=== PATIENT | male | born 1960 | race Caucasian/White ===

== ENCOUNTER → 2019-02-25 14:23 | Outpatient (BNVA) | payer MEDICARE, SELFPAY | PROVIDERS: PCP General Practice; Referring Provider Nurse Practitioner Family; Visit Provider Physical Therapy Assistant | DX: Z12.11 Encounter for screening for malignant neoplasm of colon (principal); I10 Essential (primary) hypertension; Z80.0 Family history of malignant neoplasm of digestive organs ==

== ENCOUNTER 2019-03-04 15:21 | Outpatient (REF) | payer MEDICARE, SELFPAY ==
[2019-03-04 21:18] LABS: ALT 33 U/L (12-78); AST 26 U/L (15-37); Anion Gap 8.7 mmol/L (3-11); BUN 21 mg/dL (7-18); CO2 29.3 mmol/L (21.0-32.0); CREATININE 1.57 mg/dL (0.70-1.30); Calcium 9.7 mg/dL (8.5-10.1); Chloride 105 mmol/L (98-107); Cholesterol 137 mg/dL (50-200); Glucose 88 mg/dL (70-100); HDL Cholesterol 25 mg/dL (40-60); LDL CHOLESTEROL 66 mg/dL (<100); Potassium 4.2 mmol/L (3.5-5.1); Sodium 143 mmol/L (136-145); Triglyceride 461 mg/dL (30-150)
[2019-03-06 10:24] LABS: Hepatitis C Ab w Rflx HCV PCR Negative (NEGAT)
== END 2019-03-04 15:41 ==
LOC: NCHCN 15:21
PROVIDERS: PCP Nurse Practitioner Family; Visit Provider Nurse Practitioner Family
DX: E78.5 Hyperlipidemia, unspecified (principal); I10 Essential (primary) hypertension; E66.9 Obesity, unspecified; F70 Mild intellectual disabilities; Z11.59 Encounter for screening for other viral diseases
CPT/HCPCS: 80048; 80061; 83721; 86803; 84450; 84460

== ENCOUNTER 2019-03-11 07:15 | Day surgery (SDC) | payer MEDICARE, SELFPAY ==
--- NOTE | 2019-03-11 06:18 | W.COLOREPORT ---
Date of service: 03/11/19 Time of Service: 08:38 Colonoscopy Report Date of procedure: 03/11/19 Pre-op diagnosis general: Colon Cancer Screening/ Family History of colon Cancer Post-op diagnosis procedure note: other (Colorectal polyps and Family history) Procedure: Colonoscopy with polypectomy by cold forceps Surgeon: Manju King Anesthesia proc note operative: other (General/ ASA 2/Quyen Estrella, SE) Estimated blood loss (mL): 5 Pathology: other (Ascending, Descending, sigmoid and rectal polyps) Complications: None Disposition: same day Indications: Mr. Chin is a pleasant 58-year-old gentleman who was seen in the office for a colon cancer screening. His last colonoscopy was in 2008 and was normal. He has a family history of colon cancer in his mother and his older brother. Risks, benefits and complications have been reviewed. Complications include but are not limited to bleeding, pain, perforation, missed small lesion/polyp, sore throat, aspiration and adverse reaction to the medications. Questions were entertained and answered to their satisfaction and they wished to proceed. No guarantees were given or implied. Prep: Miralax/Dulcolax Procedure Start Time: :38 Procedure End Time: 09:18 Retraction Time: 33 minutes Findings: 5 sessile polyps Procedure Description: After informed consent was obtained the patient was taken to the procedure room and placed in a left decubitous position. Monitors were applied and a time out was done. The patients name, date of , procedure, allergies to medications and metal in their body was reviewed. The patient was then sedated. Once sedated and comfortable a rectal exam was done. External exam was normal. Internal exam revealed a normal sphincter tone and no palpable masses. The prostate felt smooth. The scope was then introduced and retro-flexed. No internal hemorrhoids were identified. The scope was then advanced to the cecum without difficulty. The TI and appendiceal orifice were identified. The prep was adequate. The scope was then slowly retracted over 33 minutes back into the rectum. Polyps were removed with cold forceps in the ascending colon X1, descending colon X1, sigmoid colon x1 and rectum x2. The scope was removed and the patient was woken up and taken back to Same day surgery in stable condition. The patient tolerated the procedure well and there were no immediate complications. Follow up: The patient should follow up in 3-5 years unless they develop changes in bowel habits or other new gastrointestinal complaints.
--- NOTE | 2019-03-11 06:20 | W.PM.DSUDISC ---
Discharge Plan Disposition Patient Disposition: HOME Condition: Good Discharge Details Reason For Visit: Colon Cancer Screening Attending Provider: Manju King Primary Care Provider: Anahi Stubbs Home Meds and New Rx's Prescriptions: Continued atenolol 25 mg tablet 75 mg PO DAILY RF: 0 amlodipine 10 mg tablet 5 mg PO DAILY RF: 0 naproxen sodium [Aleve] 220 mg tablet 220 mg PO ONCE PRNRF: 0 losartan 100 mg tablet 100 mg PO DAILY RF: 0 Bioflex 463-86-30-40 mg Tablet 2 tab PO DAILY RF: 0 acetaminophen [Tylenol] 325 mg Capsule 350 mg PO PRN PRNRF: 0 Discontinued polyethylene glycol 3350 17 gram/dose powder 238 g PO ONCE Qty: 238 RF: 0 bisacodyl [Dulcolax (bisacodyl)] 5 mg tablet,delayed release (DR/EC) 5 mg PO ONCE Qty: 4 RF: 0 Discharge Instructions Instructions: Colonoscopy (DC), Colorectal Polyps (DC) Additional Instructions: Findings: 5 polyps Follow up: 3-5 years Please call if you develop: fevers >101.5 Nausea or Vomiting Abdominal pain that is not transient DAY SURGERY UNIT POST COLONOSCOPY INSTRUCTIONS 1. Because there will be medication in your system for the next 24 hours, you may feel a little sleepy. Your coordination will be affected. Therefore: a. Do not drive or operate dangerous equipment for 24 hours. b. Do not drink alcohol beverages for 24 hours (not even beer). c. Plan to go home and rest for the day. 2. Generally there are no restrictions on your activity after a day or so has gone by, but you may feel a bit fatigued for a few days. 3 After you arrive home you may have a light meal and return to a normal diet as you can tolerate it without feeling sick to your stomach. 4. After surgery, you may feel pain or discomfort. This should be only transient, but if it persists please contact your doctor. 5. If there are any questions regarding the findings of your procedure, please feel free to contact your doctor. 6. If you are unable to contact your doctor with a problem, contact the hospital at [phone]. 7. Continue all your regular medications unless directed otherwise. I understand the above instructions and have no questions. Signature of Patient or Responsible Adult Escort Date/Time Name of Responsible Adult Escort Signature of Nurse Date/Time Activity:: Activity as Tolerated Diet:: As Tolerated Discharge Orders Discharge Orders: Discharge Order (Routine); Ordered 03/11/19 Ordered By: Manju King DS: Diagnosis Discharge Diagnosis (1) S/P colonoscopy: Status: Acute (2) Colorectal polyps: Status: Acute (3) Family history of colon cancer: Status: Chronic
[2019-03-11 07:36] VITALS: BP 170/98; PULSE 70; RESP 18; TEMP 36; O2SAT 98
[2019-03-11] MEDS: Lactated Ringers 1,000 ML 80 ML IV (07:45)
--- NOTE | 2019-03-11 08:53 | BOWEL_PTH ---
PATIENT: Mamadou Chin LOC: [facility] U#:[id number] AGE/SX: 58/M ROOM: RE03/11/[address]: Manju King MD : 1960 BED: DIS: 03/11/2019 SPEC #: [id number] RECD: 03/11/19 12:38 STATUS: KATJA RE #: [id number] CLARISSA: 03/11/19 08:[address]: Manju King DEPT: Surgical Specimen RECD BY: Lore Hernandez ENTERED: 03/11/19 12:40 SP TYPE: Bowel OTHR DR: Anahi Stubbs Tissues: 1 - BIOPSY BOWEL 2 - BIOPSY BOWEL 3 - BIOPSY BOWEL 4 - BIOPSY BOWEL Procedures: GROSS AND MICRO LEVEL 4 Comments: [id number]
== END 2019-03-11 10:28 | disposition home or self-care (01) ==
PROVIDERS: PCP Nurse Practitioner Family; Visit Provider Surgery
PROC: 0DJD8ZZ Inspection of Lower Intestinal Tract, Via Natural or Artificial Opening Endoscopic (ICD-10-PCS; CPT 45378; principal; 2019-03-11 08:15)
DX: Z12.11 Encounter for screening for malignant neoplasm of colon (principal); D12.2 Benign neoplasm of ascending colon; K63.5 Polyp of colon; K62.1 Rectal polyp; Z80.0 Family history of malignant neoplasm of digestive organs; I10 Essential (primary) hypertension
CPT/HCPCS: 45380; 88305

== ENCOUNTER 2019-09-03 10:00 | Outpatient (REF) | payer MEDICARE, SELFPAY ==
[2019-09-03 13:06] LABS: Anion Gap 10.2 mmol/L (3-11); BUN 14 mg/dL (7-18); CO2 25.8 mmol/L (21.0-32.0); CREATININE 1.29 mg/dL (0.70-1.30); Calcium 9.1 mg/dL (8.5-10.1); Chloride 109 mmol/L (98-107); Estimated GFR 57.21 (mL/min/1.73m2); Glucose 111 mg/dL (70-100); Potassium 3.6 mmol/L (3.5-5.1); Sodium 145 mmol/L (136-145)
[2019-09-03 13:19] LABS: Hemoglobin A1C 5.2 % (4.5-6.2)
== END 2019-09-03 10:20 ==
LOC: NCHCN 10:00
PROVIDERS: PCP Nurse Practitioner Family; Visit Provider Nurse Practitioner Family
DX: R73.09 Other abnormal glucose (principal); I10 Essential (primary) hypertension; E78.5 Hyperlipidemia, unspecified; N28.9 Disorder of kidney and ureter, unspecified; I86.8 Varicose veins of other specified sites; F70 Mild intellectual disabilities; E66.9 Obesity, unspecified
CPT/HCPCS: 80048; 83036

== ENCOUNTER 2019-11-01 15:55 | Outpatient (REF) | payer MEDICARE, SELFPAY ==
[2019-11-01 20:32] LABS: Abs Immature Grans 0.01 k/cumm (0.0-0.09); Absolute Basophil Count 0.09 k/cumm (0.0-0.2); Absolute Eosinophil Count 1.16 k/cumm (0.0-0.7); Absolute Lymphocyte Count 1.95 k/cumm (1.2-3.4); Absolute Monocyte Count 0.59 k/cumm (0.11-0.7); Absolute Neutrophil Count 5.73 k/cumm (1.2-6.7); Basophils % 0.9; Eosinophils % 12.2; HCT 43.5 % (40.0-50.0); Immature Grans % 0.1; Lymphocytes % 20.5; Mean Corp. HGB Concentration 34.5 g/dL (32.0-36.0); Mean Corpuscular Hemoglobin 30.5 pg (27.0-33.0); Mean Corpuscular Volume 88.6 fL (80-95); Mean Platelet Volume 11.3 fL (8.0-11.0); Monocytes % 6.2; Neutrophils % 60.1; Platelet Count 268 x1000/uL (130-400); RBC 4.91 m/cumm (4.50-6.00); RBC Distribution Width 13.8 % (11.8-14.1); White Blood Cell Count 9.53 k/cumm (4.4-10.8)
[2019-11-01 20:52] LABS: Diff Comment Agrees w/ Instrument; RBC Morphology Normal
[2019-11-01 20:55] LABS: ALT 25 U/L (16-63); AST 16 U/L (15-37); Albumin 3.9 g/dL (3.4-5.0); Alkaline Phosphatase 90 U/L (46-116); Anion Gap 9.7 mmol/L (3-11); BUN 21 mg/dL (7-18); Bilirubin, Total 0.4 mg/dL (0.2-1.0); CO2 25.3 mmol/L (21.0-32.0); CREATININE 1.57 mg/dL (0.70-1.30); Calcium 9.1 mg/dL (8.5-10.1); Chloride 108 mmol/L (98-107); Estimated GFR 45.45 (mL/min/1.73m2); Glucose 93 mg/dL (74-106); Potassium 3.9 mmol/L (3.5-5.1); Sodium 143 mmol/L (136-145); TSH (W/Ref FT4) 2.09 uIU/mL (0.36-3.74); Total Protein 6.9 g/dL (6.4-8.2)
== END 2019-11-01 16:15 ==
LOC: NCHCN 15:55
PROVIDERS: PCP Nurse Practitioner Family; Visit Provider Nurse Practitioner Family
DX: R19.7 Diarrhea, unspecified (principal)
CPT/HCPCS: 80053; 84443; 85025

== ENCOUNTER 2020-03-24 10:05 | Outpatient (REF) | payer OTHER, SELFPAY ==
[2020-03-24 20:15] LABS: Anion Gap 6.5 mmol/L (3-11); BUN 22 mg/dL (7-18); CO2 28.5 mmol/L (21.0-32.0); CREATININE 1.26 mg/dL (0.70-1.30); Calcium 9.9 mg/dL (8.5-10.1); Chloride 104 mmol/L (98-107); Estimated GFR 58.58 (mL/min/1.73m2); Glucose 92 mg/dL (74-106); Potassium 3.6 mmol/L (3.5-5.1); Sodium 139 mmol/L (136-145)
== END 2020-03-24 10:25 ==
LOC: NCHCN 10:05
PROVIDERS: PCP Nurse Practitioner Family; Visit Provider Nurse Practitioner Family
DX: I10 Essential (primary) hypertension (principal); E78.5 Hyperlipidemia, unspecified; N28.9 Disorder of kidney and ureter, unspecified; E66.9 Obesity, unspecified
CPT/HCPCS: 80048

== ENCOUNTER 2020-05-07 12:18 | Outpatient (REF) | payer OTHER, SELFPAY ==
[2020-05-07 20:52] LABS: Calculated LDL 66 mg/dL (<100); Cholesterol 129 mg/dL (<200); HDL Cholesterol 31 mg/dL (40-60); Triglyceride 162 mg/dL (<150)
== END 2020-05-07 12:38 ==
LOC: NCHCN 12:18
PROVIDERS: PCP Nurse Practitioner Family; Visit Provider Nurse Practitioner Family
DX: E78.5 Hyperlipidemia, unspecified (principal); I10 Essential (primary) hypertension
CPT/HCPCS: 80061

== ENCOUNTER 2021-02-03 12:36 | Outpatient (REF) | payer OTHER, SELFPAY ==
[2021-02-04 16:27] LABS: COVID-19 RT-PCR UVMMC Result Negative (Negative)
== END 2021-02-03 12:37 | disposition home or self-care (01) ==
LOC: NCHCN 12:36
PROVIDERS: PCP Nurse Practitioner Family; Visit Provider Nurse Practitioner Family
DX: Z20.822 Contact with and (suspected) exposure to COVID-19 (principal)
CPT/HCPCS: U0003

== ENCOUNTER 2021-03-08 21:21 | Outpatient (REF) | payer OTHER, SELFPAY ==
[2021-03-08 22:14] LABS: ESR 6 mm//hr (0-20)
[2021-03-08 22:33] LABS: ALT 37 U/L (16-63); AST 29 U/L (15-37); Alkaline Phosphatase 89 U/L (46-116); Anion Gap 9.6 mmol/L (3-11); Bilirubin, Total 0.5 mg/dL (0.2-1.0); CO2 27.4 mmol/L (21.0-32.0); CREATININE 1.5 mg/dL (0.70-1.30); Calcium 9.4 mg/dL (8.5-10.1); Calculated LDL 29 mg/dL (<100); Chloride 109 mmol/L (98-107); Cholesterol 114 mg/dL (<200); Estimated GFR 47.74 (mL/min/1.73m2); Glucose 119 mg/dL (74-106); HDL Cholesterol 24 mg/dL (40-60); Potassium 4.1 mmol/L (3.5-5.1); Sodium 146 mmol/L (136-145); TSH (W/Ref FT4) 1.54 uIU/mL (0.36-3.74); Total Protein 7.1 g/dL (6.4-8.2); Triglyceride 309 mg/dL (<150)
[2021-03-08 22:47] LABS: BUN 25 mg/dL (7-18)
[2021-03-08 22:59] LABS: Creatine Kinase 456 U/L (39-308)
[2021-03-10 15:29] LABS: ANA Interpretation Negative (Negative)
== END 2021-03-08 21:22 | disposition home or self-care (01) ==
LOC: NCHCN 21:21
PROVIDERS: PCP Nurse Practitioner Family; Visit Provider Nurse Practitioner Family
DX: I10 Essential (primary) hypertension (principal); E78.5 Hyperlipidemia, unspecified; N28.9 Disorder of kidney and ureter, unspecified; M79.18 Myalgia, other site; E66.9 Obesity, unspecified
CPT/HCPCS: 80053; 80061; 82550; 85652; 84443; 86038; 86140

== ENCOUNTER 2021-08-27 09:51 | Outpatient (CLI) | payer MEDICARE, SELFPAY ==
--- NOTE | 2021-08-27 09:30 | DI.RAD_ITS ---
Exam(s) XR ANKLE LT COMPLETE EXAM: XR ANKLE LT COMPLETE CLINICAL HISTORY: pain TECHNIQUE: 2D digital imaging was performed of the left ankle. Three images were obtained. AP, lat eral and oblique views were obtained. COMPARISON: CR LEFT ANKLE COMPLETE from 09/03/2015 CR LEFT ANKLE COMPLETE from 09/03/2015 FINDINGS: BONES: No acute fracture is present. No bony destructive lesion is seen. There are tiny well corticat ed osseous densities again seen inferior to the medial malleolus which are stable. There is a large plantar calcaneal spur. There is an enthesophyte at the Achilles insertion site. JOINTS:The ankle mortise is normally aligned. There are degenerative changes of the ankle with spurri ng seen anteriorly. There are degenerative changes also seen in the foot at the talonavicular joint and the tarsometatarsal joints. SOFT TISSUE: Normal. IMPRESSION: Degenerative changes of the left ankle and foot as described. DATA REPOSITORY: RADIATION DOSE DELIVERED:
--- NOTE | 2021-08-27 09:45 | DI.RAD_ITS ---
Exam(s) XR KNEE LT 4V AP,LAT,MARVIN,PAT EXAM: XR KNEE LT 4V AP,LAT,MARVIN,PAT CLINICAL HISTORY: pain. TECHNIQUE: 2D digital imaging was performed of the left knee. Three images were obtained. AP, late ral and PA tunnel views were obtained. COMPARISON: CR LEFT KNEE 3 VIEW COMPLETE from 09/03/2015 FINDINGS: BONES: No acute fracture is present. No bony destructive lesion is seen. There is an enthesophyte at the superior aspect of the patella. JOINTS: The knee is normally aligned. No joint effusion is seen. There has been a progression of the degenerative changes which are now moderately severe. There is joint space narrowing and periarticul ar spurring involving all 3 joint compartments. The findings are most marked in the medial femoral t ibial and patellofemoral joints. SOFT TISSUE: Normal. IMPRESSION: Moderately severe degenerative changes of the knee. Findings have progressed since the prior examina tion from 2014. DATA REPOSITORY: RADIATION DOSE DELIVERED:
--- NOTE | 2021-08-27 09:45 | DI.RAD_ITS ---
Exam(s) XR KNEE RT 3V AP,LAT,MARVIN EXAM: XR KNEE RT 3V AP,LAT,MARVIN CLINICAL HISTORY: eval R knee pain. TECHNIQUE: 2D digital imaging was performed of the right knee. Three views obtained. AP, lateral an d PA tunnel views were obtained. COMPARISON: No previous for comparison. FINDINGS: There are marked degenerative changes involving all 3 joint compartments. There is joint space narro wing and periarticular spurring present. The findings are most marked at the medial femoral tibial a nd patellofemoral joint. There is no acute fracture or dislocation. There is a small joint effusion . There is an enthesophyte at the superior patella. There is a 2.3 cm density in the anterior knee which may be a loose body. The bones are normally mineralized. IMPRESSION: Marked degenerative changes of the right knee. DATA REPOSITORY: RADIATION DOSE DELIVERED:
== END 2021-08-27 09:52 | disposition home or self-care (01) ==
LOC: DIORS 09:51
PROVIDERS: PCP Nurse Practitioner Family; Referring Provider Nurse Practitioner Family; Visit Provider Student in an Organized Health Care Education/Training Program
DX: M25.572 Pain in left ankle and joints of left foot; M17.11 Unilateral primary osteoarthritis, right knee; M17.12 Unilateral primary osteoarthritis, left knee; M25.562 Pain in left knee; M25.561 Pain in right knee; M19.072 Primary osteoarthritis, left ankle and foot; M25.872 Other specified joint disorders, left ankle and foot
CPT/HCPCS: 20610; 73562; 99213; 73610; J1040

== ENCOUNTER 2021-09-09 01:53 | Outpatient (CLI) | payer MEDICARE, SELFPAY ==
--- NOTE | 2021-09-09 08:30 | DI.CT_ITS ---
Exam(s) CT LOWER EXTREMITY LT WO EXAM: CT LOWER EXTREMITY LT WO CLINICAL HISTORY: LEFT ANKLE PAIN,M25.579. TECHNIQUE: Imaging Protocol: Axial computed tomography images with coronal and sagittal reformatted images were created and reviewed. CONTRAST MATERIAL: None COMPARISON: CR XR ANKLE LT COMPLETE from 08/27/2021 CR XR ANKLE LT COMPLETE from 08/27/2021 FINDINGS: Osseous: There is no evidence of acute fracture.. No widening of the ankle mortise. There is a small 3 x 3 m illimeter degenerative subarticular cyst in the medial aspect of the talar dome. Also some degenerat maria elena change in the medial aspect of the talus at the deltoid ligament insertion site as well as a 2 mi llimeter osteophytic density in this region subjacent to the medial malleolus which is probably an ac cessory ossicle. Also 2 smaller adjacent 1 and 1.5 millimeter calcifications seen approximately 1 cm below this level and possibly related to the medial tendons. Bony excrescence is seen off the later al malleolus outer aspect. No independent bone densities at this level. Few benign bone islands are noted in the anterior and posterior aspects of the tibial plafond. There are degenerative changes in the ankle joint and bony excrescence off the anterior medial aspect of the tibial plateau formed. Correlation any clinical signs of impingement syndrome at this level recommended. Talus: There are 3 small contiguous degenerative subarticular cyst in the medial talar dome, the larg est of these measuring 3 x 2 millimeters. No evidence of osteochondral defect. Calcaneus: No fracture. There is a large inferior calcaneal spur. No calcifications seen in the lemuel ntar fascia. A posterior in these 0 lynette noted at the Achilles insertion. No prominent abnormality in the pre Achilles fat nor obvious fluid collection within the retrocalcaneal bursa. Subtalar joint: Mild degenerative changes. No degenerative subarticular cysts. Sinus tarsi: Normal fat. No mass to suggest the presence of a sinus tarsi ganglion cyst. Sustentacular talus: Appears unremarkable. Talonavicular joint: Mild degenerative changes Calcaneocuboid joint: Unremarkable There bony excrescence is seen off the dorsal aspects of the medial and middle cuneiform XXXX. There are no prominent degenerative changes between these joints nor at the articulation of the cuneiform XXXX with the metatarsal bases nor at the articulations between the 4th and 5th metatarsals and the c uboid. There is some degenerative change at the articulation between the medial cuneiform and the pa rtially visualized base of the great toe metatarsal. There is no evidence of osseous tarsal coalition. SOFT TISSUES: No abnormal fluid collections. No tenosynovitis. IMPRESSION: Findings as described individually above. No fractures. Some degenerative change. No evidence to s uggest neuropathic findings. RADIATION DOSE DELIVERED: 248.63mGy.cm Total DLP DATA REPOSITORY: All CT scans at this facility are submitted to the National Radiology Data Registry (NRDR) Dose Index Registry (DIR) with the [employer] ([employer]). RADIATION OPTIMIZATION: All CT scans at this facility use at least one of these dose optimization te chniques: automated exposure control; mA and/or kV adjustment per patient size (includes targeted exa ms where dose is matched to clinical indication); or iterative reconstruction.
== END 2021-09-09 02:13 ==
PROVIDERS: PCP Nurse Practitioner Family; Visit Provider Student in an Organized Health Care Education/Training Program
DX: M25.572 Pain in left ankle and joints of left foot (principal); M77.32 Calcaneal spur, left foot; M19.072 Primary osteoarthritis, left ankle and foot
CPT/HCPCS: 73700

== ENCOUNTER 2021-09-23 13:19 | Outpatient (REF) | payer MEDICARE, SELFPAY ==
[2021-09-23 17:20] LABS: ALT 47 U/L (16-63); AST 26 U/L (15-37); Albumin 4.4 g/dL (3.4-5.0); Alkaline Phosphatase 73 U/L (46-116); Anion Gap 11.2 mmol/L (3-11); BUN 20 mg/dL (7-18); Bilirubin, Total 0.8 mg/dL (0.2-1.0); CO2 25.8 mmol/L (21.0-32.0); CREATININE 1.2 mg/dL (0.70-1.30); Chloride 107 mmol/L (98-107); Creatine Kinase 163 U/L (39-308); Glucose 87 mg/dL (74-106); Potassium 4.3 mmol/L (3.5-5.1); Sodium 144 mmol/L (136-145); Total Protein 7.5 g/dL (6.4-8.2)
== END 2021-09-23 13:20 | disposition home or self-care (01) ==
LOC: NCHCN 13:19
PROVIDERS: PCP Nurse Practitioner Family; Visit Provider Nurse Practitioner Family
DX: R74.8 Abnormal levels of other serum enzymes (principal); I10 Essential (primary) hypertension; N28.9 Disorder of kidney and ureter, unspecified; E66.9 Obesity, unspecified; R25.1 Tremor, unspecified
CPT/HCPCS: 80053; 82550

== ENCOUNTER → 2021-09-27 12:46 | Outpatient (BNVA) | payer MEDICARE, SELFPAY | PROVIDERS: PCP Nurse Practitioner Family; Referring Provider Nurse Practitioner Family; Visit Provider Psychiatry & Neurology Neurology | DX: G62.9 Polyneuropathy, unspecified (principal); R41.3 Other amnesia; R25.1 Tremor, unspecified; I12.9 Hypertensive chronic kidney disease with stage 1 through stage 4 chronic kidney disease, or unspecified chronic kidney disease; N18.9 Chronic kidney disease, unspecified; F88 Other disorders of psychological development | CPT/HCPCS: 99215 ==

== ENCOUNTER 2021-10-08 01:40 | Outpatient (CLI) | payer MEDICARE, SELFPAY ==
--- NOTE | 2021-10-08 10:58 | DI.CT_ITS ---
Exam(s) CT HEAD WO EXAM: CT HEAD WO CLINICAL HISTORY: memory loss in dev delayed patient,R41.3,MEMORY DEFICIT. TECHNIQUE: Imaging Protocol: Axial computed tomography images with coronal and sagittal reformatted images were created and reviewed COMPARISON: No exams were available for comparison FINDINGS: Ventricles and Extra axial spaces: Normal in size and morphology for the patient's age. Hemorrhage: None. Cerebral parenchyma: Normal. No evidence of an acute territorial infarct. Midline shift: None. Brainstem/Cerebellum: Normal. Calvarium: Normal. Visualized Paranasal sinuses/Mastoids: Clear. Soft Tissues: Unremarkable. IMPRESSION: No acute intracranial process. RADIATION DOSE DELIVERED: 861.5mGy.cm Total DLP DATA REPOSITORY: All CT scans at this facility are submitted to the National Radiology Data Registry (NRDR) Dose Index Registry (DIR) with the [employer] (ACR). RADIATION OPTIMIZATION: All CT scans at this facility use at least one of these dose optimization te chniques: automated exposure control; mA and/or kV adjustment per patient size (includes targeted exa ms where dose is matched to clinical indication); or iterative reconstruction.
== END 2021-10-08 02:00 ==
PROVIDERS: PCP Nurse Practitioner Family; Visit Provider Psychiatry & Neurology Neurology
DX: R41.3 Other amnesia (principal)
CPT/HCPCS: 70450

== ENCOUNTER 2021-10-08 03:25 | Outpatient (CLI) | payer MEDICARE, SELFPAY ==
[2021-10-08 14:02] LABS: Vitamin B12 232 pg/mL (193-986)
== END 2021-10-08 03:26 | disposition home or self-care (01) ==
LOC: LBO 03:26
PROVIDERS: PCP Nurse Practitioner Family; Visit Provider Psychiatry & Neurology Neurology
DX: G62.9 Polyneuropathy, unspecified (principal)
CPT/HCPCS: 36415; 82607

== ENCOUNTER → 2021-10-15 09:47 | Outpatient (BNVA) | payer MEDICARE, SELFPAY | PROVIDERS: PCP Nurse Practitioner Family; Referring Provider Nurse Practitioner Family; Visit Provider Student in an Organized Health Care Education/Training Program | DX: M25.872 Other specified joint disorders, left ankle and foot (principal); M17.12 Unilateral primary osteoarthritis, left knee; M17.11 Unilateral primary osteoarthritis, right knee; M19.072 Primary osteoarthritis, left ankle and foot | CPT/HCPCS: 99214 ==

== ENCOUNTER → 2021-12-23 10:51 | Outpatient (BNVA) | payer MEDICARE, SELFPAY | PROVIDERS: PCP Nurse Practitioner Family; Referring Provider Nurse Practitioner Family; Visit Provider Physical Therapy Assistant | DX: Z12.11 Encounter for screening for malignant neoplasm of colon (principal); Z80.0 Family history of malignant neoplasm of digestive organs; K63.5 Polyp of colon ==

== ENCOUNTER 2022-01-24 15:21 | Outpatient (CLI) | payer MEDICARE, SELFPAY ==
--- NOTE | 2022-01-24 14:15 | DI.RAD_ITS ---
Exam(s) XR STANDING ALIGNMENT EXAM: XR STANDING ALIGNMENT CLINICAL HISTORY: preoperative for right TKA. TECHNIQUE: 2D digital imaging was performed. COMPARISON: No exams were available for comparison FINDINGS: Standing leg views reveals no evidence fracture. There is significant narrowing of the medial compar tments of both knees. Marginal osteophytes seen in both knees as well as degenerative subarticular c ysts. Both ankles unremarkable. Both hips unremarkable. No osseous lesions. IMPRESSION: Osteoarthritic degenerative narrowing of the medial compartments of both knees, approximately equal b ilaterally. DATA REPOSITORY: RADIATION DOSE DELIVERED:
--- NOTE | 2022-01-24 14:15 | DI.RAD_ITS ---
Exam(s) XR KNEE RT 1V EXAM: XR KNEE RT 1V CLINICAL HISTORY: preoperative for right TKA. TECHNIQUE: 2D digital imaging was performed. COMPARISON: CR XR KNEE RT 3V AP,LAT,MARVIN from 08/27/2021 FINDINGS: Single lateral view No evidence of fracture. Advanced osteoarthritic degenerative changes noted. Also what appears to b e a possible intra-articular body in the region the Hoffa fat pad. IMPRESSION: DATA REPOSITORY: RADIATION DOSE DELIVERED:
== END 2022-01-24 15:22 | disposition home or self-care (01) ==
LOC: DIORS 15:22
PROVIDERS: PCP Nurse Practitioner Family; Referring Provider Nurse Practitioner Family; Visit Provider Physician Assistant
DX: M25.561 Pain in right knee (principal); M17.11 Unilateral primary osteoarthritis, right knee; F70 Mild intellectual disabilities; Z01.818 Encounter for other preprocedural examination
CPT/HCPCS: 73560; 77073

== ENCOUNTER 2022-01-31 02:37 | Outpatient (CLI) | payer MEDICARE, SELFPAY ==
[2022-01-31 10:08] LABS: HCT 45.2 % (40.0-50.0); HGB 15.6 g/dL (13.5-17.5); MCHC 34.5 % (32.0-36.0); MCV 86.9 fL (80-95); Platelet Count 188 10^3/uL (130-400); RDW 13.3 % (11.8-14.1); RDW-SD 42.4 fL; WBC 6.37 10^3/uL (4.4-10.8)
[2022-01-31 10:59] LABS: Anion Gap 8.7 mmol/L (3-11); BUN 15 mg/dL (7-18); CO2 26.3 mmol/L (21.0-32.0); CREATININE 1.3 mg/dL (0.70-1.30); Calcium 9.2 mg/dL (8.5-10.1); Chloride 107 mmol/L (98-107); Estimated GFR 56.12 (mL/min/1.73m2); Glucose 103 mg/dL (74-106); Potassium 3.8 mmol/L (3.5-5.1); Sodium 142 mmol/L (136-145)
== END 2022-01-31 02:38 | disposition home or self-care (01) ==
LOC: LBO 02:37
PROVIDERS: PCP Nurse Practitioner Family; Visit Provider Student in an Organized Health Care Education/Training Program
DX: M25.561 Pain in right knee (principal); M17.11 Unilateral primary osteoarthritis, right knee; Z01.818 Encounter for other preprocedural examination; Z01.812 Encounter for preprocedural laboratory examination
CPT/HCPCS: 36415; 80048; 85027

== ENCOUNTER 2022-01-31 03:42 | Outpatient (CLI) | payer MEDICARE, SELFPAY ==
[2022-01-31 10:38] LABS: Source Nasal/Nares
[2022-01-31 16:06] LABS: COVID-19 PCR Negative (Negative)
== END 2022-01-31 03:43 | disposition home or self-care (01) ==
LOC: LBO 03:42
PROVIDERS: PCP Nurse Practitioner Family; Visit Provider Student in an Organized Health Care Education/Training Program
DX: Z20.822 Contact with and (suspected) exposure to COVID-19 (principal); Z01.818 Encounter for other preprocedural examination
CPT/HCPCS: 87635; U0005

== ENCOUNTER → 2022-02-02 07:41 | Outpatient (BNVA) | payer MEDICARE, SELFPAY | PROVIDERS: PCP Nurse Practitioner Family; Referring Provider Nurse Practitioner Family; Visit Provider Student in an Organized Health Care Education/Training Program | DX: R69 Illness, unspecified (principal) ==

== ENCOUNTER → 2022-02-17 08:58 | Outpatient (BNVA) | payer MEDICARE, SELFPAY | PROVIDERS: PCP Nurse Practitioner Family; Referring Provider Nurse Practitioner Family | DX: M17.12 Unilateral primary osteoarthritis, left knee (principal) | CPT/HCPCS: 20610; J1040 ==

== ENCOUNTER → 2022-03-16 10:55 | Outpatient (BNVA) | payer MEDICARE, SELFPAY | PROVIDERS: PCP Nurse Practitioner Family; Referring Provider Nurse Practitioner Family; Visit Provider Physician Assistant Surgical | DX: M17.11 Unilateral primary osteoarthritis, right knee (principal) ==

== ENCOUNTER 2022-03-21 03:20 | Outpatient (CLI) | payer MEDICARE, SELFPAY ==
[2022-03-21 11:43] LABS: HCT 43.4 % (40.0-50.0); HGB 15.2 g/dL (13.5-17.5); MCH 30.1 pg (27.0-33.0); MCV 86 fL (80-95); Platelet Count 214 10^3/uL (130-400); RBC 5.05 10^6/uL (4.36-5.78); RDW 13.4 % (11.8-14.1); RDW-SD 41.9 fL; WBC 6.08 10^3/uL (4.4-10.8)
[2022-03-21 12:40] LABS: Anion Gap 8.2 mmol/L (3-11); BUN 14 mg/dL (7-18); CO2 26.8 mmol/L (21.0-32.0); CREATININE 1.4 mg/dL (0.70-1.30); Chloride 106 mmol/L (98-107); Estimated GFR 51.52 (mL/min/1.73m2); Glucose 91 mg/dL (74-106); Sodium 141 mmol/L (136-145)
[2022-03-21 12:55] LABS: Source Nasal/Nares
[2022-03-21 17:42] LABS: COVID-19 PCR Negative (Negative)
== END 2022-03-21 03:21 | disposition home or self-care (01) ==
LOC: LBO 03:21
PROVIDERS: PCP Nurse Practitioner Family; Visit Provider Student in an Organized Health Care Education/Training Program
DX: M25.561 Pain in right knee (principal); M17.11 Unilateral primary osteoarthritis, right knee; Z20.822 Contact with and (suspected) exposure to COVID-19; Z01.818 Encounter for other preprocedural examination; Z01.812 Encounter for preprocedural laboratory examination
CPT/HCPCS: 36415; 80048; 85027; 87635

== ENCOUNTER 2022-03-22 06:48 | Observation (INO) | payer MEDICARE, SELFPAY ==
[2022-03-22] VITALS (17 sets, daily range): BP systolic 117–147; BP diastolic 60–85; PULSE 56–84; RESP 16–24; TEMP 34.1–37.1; O2SAT 93–96; BMI 34.7
--- NOTE | 2022-03-22 07:41 | W.PM.DSUDISC ---
Discharge Plan Disposition Patient Disposition: HOME Condition: Stable Discharge Details Reason For Visit: Right TKA Attending Provider: Brian Del Rio Primary Care Provider: Anahi Stubbs Home Meds and New Rx's Prescriptions: No Action amlodipine 10 mg tablet 5 mg PO HS losartan 100 mg tablet 100 mg PO HS cholecalciferol (vitamin D3) 25 mcg (1,000 unit) capsule 25 mcg PO HS atenolol 100 mg tablet 100 mg PO HS fluticasone propionate 50 mcg/actuation spray,suspension 1 spray intranasal DAILY PRN Rx Instructions: administer into each nostril loratadine [Claritin] 10 mg tablet 10 mg PO HS terazosin 1 mg capsule 1 mg PO QHS acetaminophen [Tylenol] 325 mg Capsule 350 mg PO PRN PRN Discharge Instructions Additional Instructions: Total Knee Discharge Instructions Activity: The most important activity is to walk. You should try to take short walks a few times a day. It is important that when resting you work on keeping the knee straight. Avoid putting a pillow behind the knee as this will encourage flexion. Work on range of motion exercises as provided by Physical Therapy. [If you have the [employer] bike coming, this will be your primary tool for exercise after the knee replacement. You should use it and follow the directions for the knee. Utilize the other exercises sparingly based on your symptoms.] - Start outpatient physical therapy within 2 weeks. - You should wear the VANNESSA hose on both legs for 2 weeks. You may remove these at night. You may also use any compression sock in place of the VANNESSA hose. - Utilize [employer] to review exercises, see videos on exercises and obtain basic information pertaining to your surgery and your recovery. Dressing: Remove the Serafin wrap by 2 days after your surgery and put on the VANNESSA stocking given to you from the hospital. Keep the surgical dressing (underneath the SERAFIN wrap) in place for at least one week. After the first week it may be removed and replaced with light gauze and tape or nothing. The wound and dressing may get wet after 3 days but avoid soaking the dressing or otherwise it will need to be changed. Many people prefer covering the dressing with cling wrap (saran wrap) to minimize it from getting soaked. If it gets wet, just pat dry. If it starts to peel off then it will need to be changed. Medications: - You should take Tylenol and anti-inflammatory [Celebrex] as your primary pain control medications. If the Celebrex is too expensive or not covered, please call the office for another alternative (Advil/Ibuprofen or Naproxen/Aleve) - You have been prescribed a stronger pain medication [Oxycodone] for breakthrough pain, take as needed as prescribed. - You have also been prescribed a stomach acid reduction agent [Pantoprozole] to help reduce stomach acid and reflux. [- You have been prescribed Gabapentin to take at night for restlessness and nerve pain.] - You will be taking [Aspirin 81mg twice a day] for DVT prevention unless instructed otherwise. - If you have constipation you should take Colace or Miralax (both [id number]). It takes most people 3-4 days to have a bowel movement. Follow-up: 2 weeks If you have any acute concerns or questions, please do not hesitate to contact the office at [phone]. You may contact Dr. Del Rio with any questions after hours through the hospital at [phone] or on his cell phone at [phone]. Referrals: Brian Del Rio MD [ [facility] STAFF PHYSICIAN] - Equipment/Supplies: Walker Activity:: Activity as Tolerated Remove Dressings/Wound Care:: Do Not Remove Shower/Bathe:: 72 hours Diet:: As Tolerated DS: Diagnosis Discharge Diagnosis (1) Osteoarthritis of right knee:
[2022-03-22] MEDS: Acetaminophen 500 MG TAB 1000 MG PO ×2 (11:04→20:26)
[2022-03-22] MEDS: Celecoxib 200 MG CAP 400 MG PO (11:04)
[2022-03-22] MEDS: Gabapentin 300 MG CAP PO ×2 (11:05→22:45)
[2022-03-22] MEDS: Lactated Ringers 1,000 ML 80 ML IV ×2 (11:16→15:23)
--- NOTE | 2022-03-22 11:19 | W.ANESPRE ---
General Info Date of Service Date Performed: 03/22/22 Height: 5 ft 11 in Weight: 113 kg Body Mass Index (BMI): 34.7 Surgical Procedure: Operation Date: 03/22/22 13:55 Proposed Procedure Side Surgeon p Knee Total Arthroplasty Cementless CR Right Brian Del Rio MD Meds Allergies and Home Medications Allergies Allergy/AdvReac Type Severity Reaction Status Date / Time CLARA Inhibitors AdvReac Unknown Verified 03/22/22 10:26 Home Medication Medication Instructions Recorded amlodipine 10 mg tablet 5 mg PO HS 11/26/18 losartan 100 mg tablet 100 mg PO HS 11/26/18 acetaminophen 325 mg capsule 350 mg PO PRN PRN 03/06/19 (Tylenol) atenolol 100 mg tablet 100 mg PO HS 09/24/20 fluticasone propionate 50 1 spray intranasal DAILY PRN 09/24/20 mcg/actuation nasal spray,suspension loratadine 10 mg tablet (Claritin) 10 mg PO HS 07/01/21 terazosin 1 mg capsule 1 mg PO QHS 07/01/21 cholecalciferol (vitamin D3) 25 25 mcg PO HS 10/15/21 mcg (1,000 unit) capsule Current Visit Medications: Current Medications Generic Name Dose Route Start Last Admin Trade Name Freq PRN Reason Stop Dose Admin Acetaminophen 1,000 mg 03/22/22 06:00 03/22/22 11:04 Acetaminophen 500 Mg Tab PO 03/22/22 16:00 1,000 mg PREOP JESSY Administration Acetaminophen 1,000 mg 03/22/22 08:30 Acetaminophen 500 Mg Tab PO TID JESSY Aspirin 81 mg 03/23/22 20:00 Aspirin E.C. 81 Mg Tabec PO BID JESSY Celecoxib 400 mg 03/22/22 06:00 03/22/22 11:04 Celecoxib 200 Mg Cap PO 03/22/22 16:00 400 mg PREOP JESSY Administration Celecoxib 200 mg 03/22/22 20:00 Celecoxib 200 Mg Cap PO BID JESSY Docusate Sodium 100 mg 03/22/22 06:50 Docusate Sodium 100 Mg Cap PO BID PRN PRN Constipation Gabapentin 300 mg 03/22/22 06:00 03/22/22 11:05 Gabapentin 300 Mg Cap PO 03/22/22 16:00 300 mg PREOP JESSY Administration Gabapentin 300 mg 03/22/22 22:00 Gabapentin 300 Mg Cap PO HS JESSY Hydromorphone HCl 0.5 mg 03/22/22 06:50 Hydromorphone 2 Mg/Ml Vial IVP Q2H PRN PRN Tranexamic Acid 1,000 mg/ 60 mls @ 360 mls/hr 03/22/22 06:00 Sodium Chloride IVPB 03/22/22 16:00 PREOP JESSY Tranexamic Acid 1,000 mg/ 60 mls @ 360 mls/hr 03/22/22 06:00 Sodium Chloride IVPB 03/22/22 16:00 DIRECTED JESSY Ringer's Solution 1,000 mls @ 80 mls/hr 03/22/22 06:00 03/22/22 11:16 IV 04/20/22 23:59 80 mls/hr INFUSION JESSY Administration Cefazolin Sodium 3 gm in 100 mls @ 200 mls/hr 03/22/22 06:00 Ancef Premix IVPB 03/22/22 23:59 PREOP JESSY Cefazolin Sodium/Dextrose 1 gm in 50 mls @ 100 mls/hr 03/22/22 19:00 Ancef Duplex IVPB 03/23/22 11:29 Q8H [facility] IV Miscellaneous Supplies 1 each 03/22/22 06:00 Iv Access IV 04/20/22 23:59 DIRECTED JESSY Ondansetron HCl 4 mg 03/22/22 06:50 Ondansetron 4 Mg/2 Ml Vial IVP Q6H PRN PRN Nausea Oxycodone HCl 0 mg 03/22/22 06:50 Oxycodone 5 Mg Tab PO Q3H PRN PRN Pain Pantoprazole Sodium 40 mg 03/22/22 07:30 Pantoprazole 40 Mg Tabcr PO DAILY@0730 [facility] Sodium Chloride 0 ml 03/22/22 06:00 Normal Saline Flush 10 Ml Syr IV 04/20/22 23:59 PRN PRN Sodium Chloride 0 ml 03/22/22 06:00 Normal Saline 10 Ml Vial IJ 04/20/22 23:59 DIRECTED PRN Sterile Water 0 ml 03/22/22 06:00 Water,Injection,Sterile 10 Ml Vial IJ 04/20/22 23:59 DIRECTED PRN PFSH Active Problems Active Problems: Problem Status Onset Code Osteoarthritis of left knee M17.12 Screening for colon cancer Z12.11 Colorectal polyps K63.5 Family history of colon cancer Z80.0 Obesity E66.9 Mild intellectual disability F70 Medical History Medical History Adenomatous colon polyp Arthritis of left ankle Degenerative joint disease HTN (hypertension) Hyperlipidemia Impingement of left ankle joint Memory deficit Myalgia Osteoarthritis of right knee Post-nasal drip Renal impairment Sensorineural hearing loss of both ears Tinnitus, bilateral Tremor Unilateral primary osteoarthritis, left knee Varicose veins of both lower extremities Medical History Comments:: Per patient sister their father had PONV with anesthesia. Surgical History Surgical History History of colonoscopy 2009 History of inguinal hernia as ~2 yo Tobacco Smoking/Tobacco Use Status: Never Alcohol Alcohol Intake: never Substance Use Substance use: Never Substance use type: does not use Vital Signs and Lab Results Vital Signs Most Recent Vital Signs in EMR: Most Recent Vital Signs Temp Pulse Resp BP Pulse Ox 37.1 C 67 20 124/78 96 03/22/22 10:30 03/22/22 10:30 03/22/22 10:30 03/22/22 10:30 03/22/22 10:30 Lab Results Blood Type / Crossmatch: No Data to Display Complete Blood Count: White Blood Count 6.08 10^3/uL (4.4-10.8) 03/21/22 11:36 Red Blood Count 5.05 10^6/uL (4.36-5.78) 03/21/22 11:36 Hemoglobin 15.2 g/dL (13.5-17.5) 03/21/22 11:36 Hematocrit 43.4 % (40.0-50.0) 03/21/22 11:36 Platelet Count 214 10^3/uL (130-400) 03/21/22 11:36 Complete Metabolic Panel: Sodium Level 141 mmol/L (136-145) 03/21/22 11:36 Potassium Level 4.0 mmol/L (3.5-5.1) 03/21/22 11:36 Chloride Level 106 mmol/L (98-107) 03/21/22 11:36 Carbon Dioxide Level 26.8 mmol/L (21.0-32.0) 03/21/22 11:36 Blood Urea Nitrogen 14 mg/dL (7-18) 03/21/22 11:36 Creatinine 1.4 mg/dL (0.70-1.30) H 03/21/22 11:36 Estimated GFR/1.73 m2 51.52 (mL/min/1.73m2) 03/21/22 11:36 Calcium Level 9.0 mg/dL (8.5-10.1) 03/21/22 11:36 Glucose Level 91 mg/dL (74-106) 03/21/22 11:36 Liver Function Panel: No Data to Display Coagulation Panel: No Data to Display Cardiac Panel: No Data to Display Arterial Blood Gas: No Data to Display Venous Blood Gas: No Data to Display Pancreas Panel: No Data to Display Thyroid Panel: No Data to Display Infectious Disease: Coronavirus (COVID-19)(PCR) Negative (Negative) 03/21/22 11:46 Coronavirus 2019 Source Nasal/Nares 03/21/22 11:46 Blood Cultures: No Data to Display Toxicology Panel: No Data to Display Anesthesia Assessment and Plan Anesthesia History Personal History: No History of Anesthesia Complications Family History: No Family History of Anesthesia Complications and Other (Dad had Ponv) Exercise Tolerance Exercise Tolerance: Metabolic Equivalents>4 Pertinent Negatives Pertinent Negatives: No Symptoms of GERD, No Major Cardiovascular Symptoms or Complaints, No Major Pulmonary Symptoms or Complaints and No History of CVA/TIA Cardiac & Pulmonary Exam Cardiac Exam: Normal S1/S2 Heart Sounds Pulmonary Exam: Clear Bilateral Breath Sounds Implantable Cardiac Device Does patient have a Pacemaker or an ICD?: No Airway Exam Known Difficult Airway: No Mallampati Class: 2 Mouth Opening: Normal (> 3cm) Thyromental Distance: Greater than 3 cm Neck Range of Motion: Full ROM Neck Circumference: Normal Teeth Condition: Normal Dentition ASA Classification ASA Score: ASA 2 Emergency Case?: No NPO Status NPO Status: NPO Clears >2 hours, Solids >8 hours Anesthesia Plan Resuscitation Status: Full Code Anesthesia Technique: Spinal Anesthesia Airway Planned: Natural Airway Monitors Used: Standard Monitors
--- NOTE | 2022-03-22 11:21 | W.ANESNERVE ---
Nerve Block Single Injection Procedure Date and Time Date Performed: 03/22/22 Procedure Start: 12:02 Location Where Procedure Performed Procedure Location: Day Surgery Unit Reason Performed: Postoperative Analgesia Requesting Provider: Brian Del Rio Timeout Performed Timeout Performed: Yes Monitoring Used ECG, Blood Pressure and SpO2 Sterility Sterility: Hand Hygiene, Surgical Cap, Surgical Mask, Sterile Gloves, Eye Protection and Chlorhexidine Sedation Given During Procedure Sedation Given (Indicate Dose Given): No Sedation given Patient Mental Status Patient Mental Status: Awake Nerve Block 1st Nerve Block: Laterality: Right Block Type: Adductor Canal Needle / Catheter Used: 100mm SonoPlex II Local Anesthetic Bolus (Indicate Dose Given): Lidocaine used for local infiltration of skin, Injected in 3-5ml increments after negative blood aspiration and Bupivacaine 0.25% Dose:: 15 mL Additives (Indicate Dose Given): None Ultrasound: Sterile probe cover and gel used Ultrasound Image Saved?: Yes Nerve Stimulator: Not Used Paresthesia: None Procedure Tolerated: No Complications and Patient tolerated well Procedure Outcome: Successful Performed By: Yue Westfall Supervised By: Sweta Castellanos
--- NOTE | 2022-03-22 13:34 | W.ANESPOSTOP ---
Postoperative Evaluation Date, Time and Location Date Performed: 03/22/22 Time Performed: 14:28 Patient Location: PACU Vital Signs Most Recent Imported Vital Signs: Most Recent Vital Signs Temp Pulse Resp BP Pulse Ox 37.1 C 67 20 124/78 96 03/22/22 10:30 03/22/22 10:30 03/22/22 10:30 03/22/22 10:30 03/22/22 10:30 Pain Score Most Recent Pain Score: Most Recent Pain Score Pain Level 5 03/22/22 10:30 Assessment Mental Status: Awake (Alert & Oriented to Patient Baseline) Airway and Respiratory Function: Patent airway with normal (patient baseline) respiratory exam Cardiovascular Function: Hemodynamically Stable Hydration Status: Adequately Hydrated Nausea & Vomiting: No Nausea or Vomiting Pain: Pain is tolerable per patient Peripheral Nerve Block: Regional nerve block not resolved at time of post operative discharge
--- NOTE | 2022-03-22 13:44 | W.PM.OP ---
Date of service: 03/22/22 Time of Service: 12:44 Operative Note Operative Note DATE OF PROCEDURE: 03/22/22 PRE-OP DIAGNOSIS: Right Knee Osteoarthritis POST-OP DIAGNOSIS: same PROCEDURE: Right Total Knee Replacement SURGEON: Brian Del Rio RADIOLOGY TECHNICIAN: aMria Dolores Duke ANESTHESIA TYPE: Spinal Refer to Anesthesia Record ESTIMATED BLOOD LOSS: 200 PATHOLOGY: none sent TOURNIQUET TIME: 0 COMPLICATIONS: None Patient was transported to: PACU Patient's condition: stable Implants: 1. Depuy Attune Cementless Cruciate Retaining Femoral Component, Size 8 2. Depuy Attune Cementless Rotating Platform Tibial Component, Size 7 3. Depuy Attune 8x8mm CR/RP Poly 4. Depuy Attune Patellar Component, Size 41 Indications: I have seen Mamadou in clinic for symptoms of knee arthritis, confirmed with radiographic findings. Mamadou has exhausted nonoperative methods and was having significant limitations in daily function and desired better function and less pain. I discussed the technical details of a knee replacement. I explained the risks of the procedure to include, but not limited to, bleeding, infection, pain, stiffness, fracture, damage to nerves and vessels, damage to muscles and tendons, loosening, need for repeat procedure, blood clot and cardiopulmonary demise. Despite these risks, he elected to proceed. Findings: There was significant signs of arthritis throughout the knee involving all 3 compartments with large osteophytes throughout. Procedure Description: Mamadou was greeted in the preoperative holding area where the correct side was identified and marked. The consent was reviewed with the patient and signed. The history and physical was updated. All questions were answered. Preoperative medications were administered: Acetaminophen 1000mg, Celebrex 400mg, and Gabapentin 300mg. An adductor canal block was then administered by the anesthesia team in the PACU. Mamadou was taken back to the operating room. A spinal anesthestic was then administered. The patient was placed into the supine position on the operating room table. A nonsterile tourniquet was placed high onto the leg but only used for cementing. Posts were placed for positioning during the procedure. All bony prominences were well padded. Prophylactic antibiotics in the form of Cefazolin were administered. 1g of Tranxemic Acid was given intravenously within 30 minutes of incision. The right leg was then prepped with Chloraprep and draped in a standard fashion with impervious stockinette. A second prep with Chloraprep was performed prior to application of Iodine impregnated skin protection. A timeout to confirm correct identity, side and site, procedure, allergies, anesthesia, and medical concerns was performed. With the knee in some flexion, a midline incision was made overlying the knee. Full thickness skin flaps were raised once the extensor mechanism was encountered. These were raised medially and laterally. Any bleeding was controlled with electrocautery. Once the extensor mechanism was fully exposed, a medial parapatellar arthrotomy was performed in a flexed position. All bleeding from the arthrotomy and the geniculate arteries was coagulated. A medial subperiosteal peel was performed with electrocautery to the midcoronal plane. Due to the significant varus deformity the entire medial tibial plateau was exposed. A large osteophyte from the anterior-medial tibia was removed. The fat pad was removed while keeping the patellar tendon protected. The anterior distal femur synovium was removed for later visualization. The ACL and PCL were resected and the anterior horn of the lateral meniscus was transected. The knee was then flexed with the patella everted. Large osteophytes from the tibia were removed. Large osteophytes from the femur were removed. Using a step drill, and based on preoperative templating, the femoral canal was entered. This was done with a step drill without any difficulty. The intramedullary distal femoral cut guide was inserted, set to a 5 degree valgus cut and 9mm cut thickness. The distal femoral cut guide was then held in position and pinned. With the soft tissues protected, the distal cut was performed. This was passed over a few times to ensure a planar cut. I then turned attention to the tibia. The extramedullary guide was placed onto the leg. The distal aspect was slid medial to adjust for position of center of ankle and stay in line with shaft of the tibia. Approximately 5 degrees of posterior slope was kept in the proximal cutting guide. The center of the guide was aligned with the PCL. The stylus was used to assess cut thickness. The medial side, most involved side, was set for a 2mm cut. This was then held in position and pinned into place with 2 additional pins and a cross pin for stability. The medial and lateral collateral ligaments were protected and the cut was performed. With this completed, it was assessed and noted to be of appropriate dimensions. The guide was removed. A spacer block was inserted and the knee was brought into extension. The 8mm spacer block provided full extension, without hyperextension and with stability of both the medial and lateral collateral ligaments was assessed. The pins from the femur and the tibia were then removed. The distal femur was then sized. The anterior stylus was placed onto the lateral ridge of the anterior femur. This indicated a size 8 femur. The external rotation of the guide was adjusted to 5 degrees to match the epicondylar axis, perpendicular to [place]'s line. The 4-in-1 cutting guide was the placed. The posterior medial femur cut was evaluated and appeared of good thickness. The spacer block was inserted underneath the cutting guide and stability was confirmed in 90 degrees of flexion. An ethan wing was used to confirm appropriate position of the anterior cut to avoid notching. This cutting guide was ensured to be flush on the cut surface and then pinned into place with headed pins. While protecting the soft tissues, quad tendon, and collateral ligaments, the anterior and posterior cuts were performed with a saw. The central two pins were removed and the posterior and anterior chamfers were cut next. The notch-cutting guide was placed. This was pinned to lateralize the femoral component as much as possible while keeping it flush on the cut surface. This was then pinned into position. A reciprocating saw was used to make the notch cut. A rasp smoothed the cut surfaces. The medial and lateral menisci were removed. A trial femoral component was then inserted, impacted down to the cut surfaces, and the lug holes were drilled. A provisional trial tibial component was placed and the knee was brought through range of motion. There was noted to be excellent extension and flexion. There was no significant instability. The patella was tracking without thumbs. A size 8mm polyethylene component provided the best range of motion and stability with less than 2mm gapping with medial and lateral stress and full extension without significant hyperextension. The tibial cut surface was fully exposed. The tibia was then sized as a 7. The tibia had been previously marked during trialing to correspond to the center of the tibial component to help with rotation. The trial was aligned to this gracy, approximately rotated to the medial 1/3rd of the tibial tubercle. The trial was pinned into place. The tibia was prepared with a reamer and a keel punch and lug holes. The knee was then brought into extension and the patella was measured as 34mm. Using the patellar clamp and cut guide, this was resected to a flat surface with at least 13mm of thickness remaining. The size 41 patella fit the best. This was oriented and then clamped into position. The lugs were drilled. The trial components were removed. The final components were opened on the back table. The periosteal and capsular tissues, especially posteriorly, around the knee were then systematically injected with a periarticular cocktail consisting of 246mg of Ropivacaine, 0.5mg of Epinephrine, 0.08mg of Clonidine, and 30mg of Ketorolac, diluted to 100cc. On the back table, with the implants opened, the cement was mixed. One batch of high viscosity cement was prepared with vacuum assistance. After the cement was ready a small amount was placed on the cut surface of the patella and the patellar button was clamped into position and held. While the cement was hardening, the cementless knee components were placed. Starting with the tibial component, the tibia was subluxed anteriorly and the lug holes of the component were lined up. The tibia was then impacted with an impactor and mallet until the tibial component was in contact with the tibia. The final polyethylene component was inserted. Then, the femoral component was inserted. The lug holes were aligned and the component was impacted into position. The knee was irrigated with Surgiphor Betadine solution. This was allowed to sit in the knee for 3 minutes and then it was irrigated out with saline. After the cement had finally cured, approximately 15min, the clamp was removed from the patella and the knee was taken through range of motion. The patella was tracking with a no-thumbs technique. The capsule was then reapproximated with a No. 1 Vicryl at multiple locations. The capsule was finally closed with a No. 2 Stratafix, barbed suture. The second dosing of 1g TXA was started. Deep tissues were then reapproximated with 0 Vicryl and 2-0 Vicryl. The skin was closed with a running 3-0 Monocryl in a subcuticular fashion. This was reinforced with skin glue. A Mepilex silver dressing was applied along with a [id number] CLARA wrap. A CryoCuff was applied. Mamadou was transferred to the hospital bed without difficulty an suffering no apparent complication. Mamadou has a good prognosis. Physical therapy will start today and without restrictions, weight-bearing as tolerated. Aspirin 81mg BID will be used for DVT prophylaxis.
[2022-03-22] MEDS: HYDROmorphone 2 MG/ML VIAL IVP ×4 (14:25→15:05)
[2022-03-22] MEDS: fentaNYL 100 MCG/2 ML VIAL IVP ×2 (14:33→14:45)
[2022-03-22] MEDS: Ondansetron 4 MG/2 ML VIAL IVP (16:50)
--- NOTE | 2022-03-22 17:31 | NT_ITS ---
Date of service: 03/22/22 Time of Service: 16:31 PT Notes Visit Reasons: Right TKA Patient was hypothermic when PT first came in at 16:17 PM and Nurses Tim and Justo recommended waiting a little bit more prior to evaluation. in the second attemptat 17:22 PM, Nurse Tim recommended holding off on PT as patient is not feeling well and just vomited. Orthopod updated of patient's status and of PT's plan to hold off on evaluation until tomorrow morning. Thank you for the opportunity to participate in the care of this patient. Sirisha Hobson PT, DPT, CLT [facility] [place], [place]
[2022-03-22] MEDS: Lactated Ringers 1,000 ML 1000 ML IV (18:38)
[2022-03-22] MEDS: Dexamethasone 4 MG/ML VIAL IVP (18:38)
[2022-03-22] MEDS: ceFAZolin 1 GM/50 ML BAG IVPB (20:26)
[2022-03-22] MEDS: Celecoxib 200 MG CAP PO (20:26)
[2022-03-22] MEDS: Normal Saline Flush 10 ML SYR IV (20:27)
[2022-03-22] MEDS: Losartan 50 MG TAB 100 MG PO (22:42)
[2022-03-22] MEDS: Atenolol 50 MG TAB 100 MG PO (22:42)
[2022-03-22] MEDS: Loratidine 10 MG TAB PO (22:43)
[2022-03-22] MEDS: amLODIPine 5 MG TAB PO (22:43)
[2022-03-22] MEDS: Cholecalciferol (Vitamin D3) 1,000 UNIT TAB 1000 UNITS PO (22:58)
[2022-03-23] MEDS: ceFAZolin 1 GM/50 ML BAG IVPB ×2 (05:02→11:29)
[2022-03-23] MEDS: Normal Saline 500 ML 30 ML IV (05:04)
[2022-03-23 05:28] VITALS: BP 131/74; PULSE 64; RESP 16; TEMP 36.4; O2SAT 95
[2022-03-23 07:30] VITALS: BP 138/74; PULSE 64; RESP 19; TEMP 36; O2SAT 95
[2022-03-23] MEDS: Acetaminophen 500 MG TAB 1000 MG PO ×2 (07:34→13:53)
[2022-03-23] MEDS: Pantoprazole 40 MG TABCR PO (07:35)
[2022-03-23] MEDS: Celecoxib 200 MG CAP PO (07:35)
[2022-03-23] MEDS: oxyCODONE 5 MG TAB PO ×2 (08:51→12:31)
--- NOTE | 2022-03-23 09:22 | PT.INIE ---
Date of service: 03/23/22 Time of Service: 09:22 PT Notes Visit Reasons: Right TKA Physical Therapy Inpatient Initial Evaluation Date: 03/23/2022 Referring Doctor: AARON Lopez PT Orders: PT CONSULT: S/P Ortho surgery Precautions: Fall. Standard. WBAT on right LE with AD. Patient Profile/Admitting Diagnosis: Mamadou is a 61-year-old male with pre-existing memory deficit with osteoarthritis of the right knee and is status post right total knee arthroplasty on postoperative day 1. PMHX: Medical History? Adenomatous colon polyp Arthritis of left ankle Degenerative joint disease HTN (hypertension) Hyperlipidemia Impingement of left ankle joint Memory deficit Myalgia Osteoarthritis of right knee Post-nasal drip Renal impairment Sensorineural hearing loss of both ears Tinnitus, bilateral Tremor Unilateral primary osteoarthritis, left knee Varicose veins of both lower extremities Surgical History? History of colonoscopy 2009 History of inguinal hernia as ~2 yo Social History/Home Situation: Mamadou lives with his sister in a private home with 2 steps to enter with rails on both sides. His bedroom is on the basement with 3 steps to enter with bilateral rails. Sister does not work and has been doing grocery shopping and meal preparation/cooking for patient. Does not drive. Equipment Owned/DME: None Subjective: Agreeable to PT consult. Was initially anxious about getting out of bed but is happy that weightbearing does not hurt as much as he expected it to be. Did indicate a moderate ache in her right knee after ambulation activity. Denies headache, chest pain, and dizziness throughout session. Objective: General Observation: Supine in bed. Cryocuuff to right knee. CLARA wraps to right LE. TEDS on left leg. Mental Status: Alert and oriented as to person, place, time, and purpose. Able to pay attention, focus, and respond appropriately. Speech slightly garbled, hard to understand sometimes. Pain: 1-2/10 right knee in at rest and with movement Vital Signs: Oxygen saturation above 92% on room air at rest and after ambulation activity ROM: Right Lower Extremity: Hip flexion WFL. Hip abduction WFL. Knee flexion 0 degrees to 95 degrees. Knee extension 95 degrees to 0 degrees.. Ankle dorsiflexion WFL. Ankle plantarflexion WFL. Left Lower Extremity: Hip flexion WFL. Hip abduction WFL. Knee flexion WFL. Ankle dorsiflexion WFL. Ankle plantarflexion WFL. Strength: Right Lower Extremity: Hip flexors 5/5. Hip abductors 5/5. Knee flexors 3-/5. Knee extensors 3-/5. Ankle dorsiflexors 5/5. Ankle plantarflexors 5/5. Left Lower Extremity: Hip flexors 5/5. Hip abductors 5/5. Knee flexors 5/5. Knee extensors 5/5. Ankle dorsiflexors 5/5. Ankle plantarflexors 5/5. Bed Mobility/Transfers: Supine to sit independent Sit to stand supervision with moderate cueing provided for safe and correct technique Stand to sit supervision with moderate cueing provided for safe and correct technique Bed to toilet seat supervision with minimal cueing provided for correct gait pattern and walker management Bed to reclining chair supervision with minimal cueing provided for correct gait pattern and walker management Gait: Instructed patient with level surface ambulation of 120 feet +120 feet requiring standbyassist. Shamika decreased. Step to gait pattern. Moderate cues given for safe gait pattern and walker management. Needs to do gradual turning to minimize pain, tends to be impulsive. Oxygen saturation stayed above 92% on room air after activity. Stairs: Up and down 6 x 4 inch steps and 4 x 6 inch steps while holding onto the rails with step technique gait pattern requiring only standby assist and moderate verbal cueing for correct technique. Balance: Static Sitting: Normal 0 arm and arm DVIU which Dynamic Sitting: Normal Static Standing: Fair Dynamic Standing: Fair Special Tests: Mobility Limitations Standardized Measure [facility] AM-PAC 6 clicks Basic Mobility Inpatient Short Form: Raw Score: 22 CMS Score: 21% deficit Informed Consent/Education: Patient was instructed in purpose of PT consult and plan of care. Agreeable to proceed with established PT POC to achieve personal goals. Assessment: Patient demonstrates functional mobility decline requiring the use of FWW for all mobility ADL performance. Requires moderate cueing for safety and sequence due to cognitive impairment. Tends to be impulsive but able to follow safety instructions if emphasized. Patient presents with clinical signs and symptoms consistent with current/admitting diagnoses that have resulted to mobility limitations, gait instability, generalized weakness, and overall ADL decline as demonstrated by the following impairment level findings: 1. Decreased strength to right knee major muscle groups 2. Impaired sitting/standing balance 3. Impaired activity tolerance 4. Limitation of joint range of motion in right knee Impairments are contributing to the following functional limitations: 1. Difficulty with ambulation without assistive device 2. Increased completion time for mobility ADL performance Patient is assessed as a 06383 moderate 61complexity based on the following: History: -year-old with past medical history as indicated above Examination: Demonstrable impairment in strength, balance, and mobility level with underlying impairments and functional limitations as exhibited above as well as deficit score of male 21% utilizing the [facility] Mobility Inpatient Short Form Presentation: Evolving Decision Makin moderate complexity Goals: Goals X1 week 1. Supine-Sit independent 2. Sit-Supine independent 3. Sit-Stand independent 4. Stand-Sit independent with FWW 5. Bed-Chair independent with FWW 6. Chair-Bed independent with FWW 7. Independent gait on level surface with use of FWW for at least 300 feet without report of pain nor dyspnea 8. Independent stair negotiation while holding onto B rails for at least 5 steps without report of pain nor dyspnea 9. Independent with home exercise program 10. Good static and dynamic standing balance/tolerance Plan of Care/Treatment Plan: 1-2x/day, 7 days/week x 1 week. Plan of care has been reviewed with the MANAGER ORACLE providing the service under Physical Therapy direction. Initiate Physical Therapy intervention for pain management as needed, strengthening, bed mobility, transfers, gait, stairs, balance training, and use of assistive device. DISCHARGE RECOMMENDATIONS: [] Home with no services [] [] Home with services [specify] [X] Home with outpatient PT. Home when medically cleared by orthopedic surgeon. Outpatient PT services to return to independent ADL performance and community ambulation without an assistive device. [] SNF for continued rehabilitation [] [] Care Home Care [] [] SNF versus LTC based on ability to participate and progress [] TREATMENT CODE/TIME: 67153 x 20 minutes, 96802 x 19 minutes beginning at 9:22 AM. Thank you for the opportunity to participate in the care of this patient. Sirisha Hobson PT, DPT, CLT [facility] [place], [place]
--- NOTE | 2022-03-23 10:29 | W.PM.PROGNOT ---
Date of Service Date of service: 03/23/22 Objective Last Vital Signs Temp 96.8 F L 03/23/22 07:30 Pulse 64 03/23/22 07:30 Resp 19 03/23/22 07:30 BP 138/74 03/23/22 07:30 Pulse Ox 95 03/23/22 07:30
--- NOTE | 2022-03-23 10:33 | DSE_ITS ---
DS: Diagnosis Discharge Diagnosis (1) Osteoarthritis of right knee: Discharge Plan Disposition Patient Disposition: HOME Condition: Stable Discharge Details Reason For Visit: Right TKA Admit Date/Time: 03/22/22 06:48 Admit Provider: Brian Del Rio Attending Provider: Brian Del Rio [facility] Hospital Course: Patient was admitted to the medical/surgical floor following the procedure. The surgery was tolerated well without any notable medical, surgical, or anesthetic complications. Mobilization began postoperatively. He was voiding spontaneously. Vitals were stable. Physical therapy worked with the patient and was cleared for discharge home. No acute medical issues. Pain was controlled on oral regimen. Home Meds and New Rx's Prescriptions: New celecoxib [Celebrex] 200 mg capsule 200 mg PO BID Qty: 60 0RF aspirin 81 mg tablet,delayed release (DR/EC) 81 mg PO BID Qty: 60 0RF pantoprazole [Protonix] 40 mg tablet,delayed release (DR/EC) 40 mg PO DAILY Qty: 30 0RF gabapentin 300 mg capsule 300 mg PO QHS Qty: 14 0RF acetaminophen 500 mg capsule 1,000 mg PO Q8H PRN PRNQty: 90 0RF oxycodone 5 mg tablet 5 mg PO Q4H PRNQty: 18 0RF Continued amlodipine 10 mg tablet 5 mg PO HS losartan 100 mg tablet 100 mg PO HS cholecalciferol (vitamin D3) 25 mcg (1,000 unit) capsule 25 mcg PO HS atenolol 100 mg tablet 100 mg PO HS fluticasone propionate 50 mcg/actuation spray,suspension 1 spray intranasal DAILY PRN Rx Instructions: administer into each nostril loratadine [Claritin] 10 mg tablet 10 mg PO HS terazosin 1 mg capsule 1 mg PO QHS Discontinued acetaminophen [Tylenol] 325 mg Capsule 350 mg PO PRN PRN Discharge Instructions Additional Instructions: Total Knee Discharge Instructions Activity: The most important activity is to walk. You should try to take short walks a few times a day. It is important that when resting you work on keeping the knee straight. Avoid putting a pillow behind the knee as this will encourage flexion. Work on range of motion exercises as provided by Physical T herapy. If you have the emotion.me bike coming, this will be your primary tool for exercise after the knee replacement. You should use it and follow the directions for the knee. Utilize the other exercises sparingly based on your symptoms. - Start outpatient physical therapy within 2 weeks. - You should wear the VANNESSA hose on both legs for 2 weeks. You may remove these at night. You may also use any compression sock in place of the VANNESSA hose. - Utilize [employer] to review exercises, see videos on exercises and obtain basic information pertaining to your surgery and your recovery. Dressing: Remove the Serafin wrap by 2 days after your surgery and put on the VANNESSA stocking given to you from the hospital. Keep the surgical dressing (underneath the SERAFIN wrap) in place for at least one week. After the first week it may be removed and replaced with light gauze and tape or nothing. The wound and dressing may get wet after 3 days but avoid soaking the dressing or otherwise it will need to be changed. Many people prefer covering the dressing with cling wrap (saran wrap) to minimize it from getting soaked. If it gets wet, just pat dry. If it starts to peel off then it will need to be changed. Medications: - You should take Tylenol and anti-inflammatory Celebrex as your primary pain control medications. If the Celebrex is too expensive or not covered, please call the office for another alternative (Advil/Ibuprofen or Naproxen/Aleve) - You have been prescribed a stronger pain medication Oxycodone for breakthrough pain, take as needed as prescribed. - You have also been prescribed a stomach acid reduction agent Pantoprozole to help reduce stomach acid and reflux. - You have been prescribed Gabapentin to take at night for restlessness and nerve pain. - You will be taking Aspirin 81mg twice a day for DVT prevention unless instructed otherwise. - If you have constipation you should take Colace or Miralax (both over-the- counter). It takes most people 3-4 days to have a bowel movement. Follow-up: 2 weeks If you have any acute concerns or questions, please do not hesitate to contact the office at [phone]. You may contact Dr. Del Rio with any questions after hours through the hospital at [phone] or on his cell phone at [phone]. Referrals: Brian Del Rio MD [ [facility] STAFF PHYSICIAN] - Activity:: Activity as Tolerated Equipment/Supplies:: Walker Diet:: As Tolerated Discharge Orders Discharge Orders: Discharge Order (Routine); Ordered 03/23/22 Ordered By: Maria Dolores Duke DS: Summary Time Spent with Patient providing and/or coordinating discharge services: Less than 30 minutes Status at Discharge Functional status at discharge: uses cane/walker Overall status at discharge: patient is progressing back to baseline Mental Status: mental status grossly normal Speech and Movement: speech and movement normal Mood: congruent mood Affect: normal affect Exam Narrative Exam Narrative: OOB in chair with cyro cuff on Patient states no pain. Moves all extremities without difficultly Distal dorsalis pedis pulse intact, brisk distal capillary refill SERAFIN bandages in place over mepilex - clean and dry Psych Mental Status: mental status grossly normal Speech and Movement: speech and movement normal Mood: congruent mood Affect: normal affect DS: Data Vitals/I&O Vitals and I&O: Vital Signs Temperature 96.8 F L 03/23/22 07:30 Temperature Source Tympanic 03/23/22 07:30 Pulse 64 03/23/22 07:30 Pulse Rhythm Regular 03/23/22 07:45 Respiratory Rate 19 03/23/22 07:30 Respiratory Effort Non-Labored 03/23/22 07:45 Respiratory Depth Normal 03/23/22 07:45 Respiratory Pattern Normal 03/23/22 07:45 Blood Pressure 138/74 03/23/22 07:30 Blood Pressure Mean 94 03/22/22 11:55 Blood Pressure Position Supine 03/22/22 11:55 Pulse Oximetry 95 03/23/22 07:30 Oxygen Delivery Method Nasal Cannula 03/23/22 07:30 Oxygen Flow Rate 2 03/23/22 07:30 Pain Level 1 03/23/22 08:51 Comment 03/22/22 15:30 Intake & Output 03/22/22 03/22/22 03/23/22 11:59 23:59 11:59 Intake Total 1705 / 1705 Output Total 1050 / 1050 300 / 300 Balance 655 / 655 -300 / -300 Weight 249 lb 1.957 oz Intake: IV 1220 / 1220 Oral 485 / 485 Output: Urine 500 / 500 300 / 300 Emesis 300 / 300 Estimated Blood Loss 250 / 250 Other: Urine Color Yellow Straw Urine Appearance Clear Clear Urine Odor Normal Strong Emesis Description Retching Bile Voiding Methods Urinal PFSH All Active Problems Osteoarthritis of left knee (Acute) Screening for colon cancer (Acute) Colorectal polyps (Acute) Family history of colon cancer (Chronic) Obesity (Chronic) Mild intellectual disability (Chronic) Medical History Adenomatous colon polyp Arthritis of left ankle Degenerative joint disease HTN (hypertension) Hyperlipidemia Impingement of left ankle joint Memory deficit Myalgia Osteoarthritis of right knee Post-nasal drip Renal impairment Sensorineural hearing loss of both ears Tinnitus, bilateral Tremor Unilateral primary osteoarthritis, left knee Varicose veins of both lower extremities Surgical History History of colonoscopy 2008 History of inguinal hernia as ~2 yo Family History (Updated 09/27/21 @ 21:50 by Monique Young MD) Other Diabetes Heart disease Hyperlipidemia Hypertension Social History Smoking/Tobacco Use Status: Never Smoking risk assessment performed?: Yes Alcohol Intake: never Drug use: Never Substance use type: does not use Current gender identity: male Do you feel safe at home: Yes Do you feel safe in your relationship?: Yes Additional Social history: Unable to assess sy
[2022-03-23] MEDS: Normal Saline Flush 10 ML SYR IV (11:29)
[2022-03-23 11:48] VITALS: BP 116/70; PULSE 75; RESP 17; TEMP 36.6; O2SAT 94
--- NOTE | 2022-03-23 14:01 | PT.INTREAT ---
Date of service: 03/23/22 Time of Service: 13:31 PT Notes Visit Reasons: Right TKA Inpatient Physical Therapy Treatment Note [facility] Date: 03/23/2022 PRECAUTIONS: WBAT R, Activity as tolerated SUBJECTIVE: Mamadou is pleasant and agreeable to participating in PT. He reports that his R LE feels stiff and that he has been trying to move it while he has been sitting up in the chair. OBJECTIVE: PAIN: Patient c/o R anterior thigh discomfort with gait training and ther ex BED MOBILITY/TRANSFERS Sit-stand: SBA Stand-sit: SBA GAIT Assistive Device: FWW Weight bearing: WBAT R Assist: SBA Distance: 300' Deviation: Antalgic gait, several standing rests due to R Le discomfort THEREX: Patient was instructed in a LE strengthening program, to include: ankle pumps, heel raises, knee flexion, hip abduction, LAQ and hip flexion exercises completed in a seated position. ASSESSMENT: Patient tolerated session with R anterior thigh discomfort with gait training and ther ex completion. He demonstrates an antalgic gait pattern at this time and requires several standing rests t/o gait training due to R knee discomfort. PLAN: Patient to discharge to home later today, per provider. Recommend follow up with PT upon discharge. TREATMENT CODE/TIME: 18 minutes; 17946 (13:31)
--- NOTE | 2022-03-23 14:31 | CHAPLAIN ---
Mamadou was sitting up in the chair with his knee elevated. He said his knee has been painful and he' looking forward to getting through the pain of his recovery. He told me about living in [place] with some goats and sheep on on small farm. He's been in touch with his sister for support.
--- NOTE | 2022-03-23 18:00 | PT.INDS ---
Date of service: 03/23/22 PT Notes Visit Reasons: Right TKA Physical Therapy Inpatient Initial Evaluation Date: 03/23/2022 Dates of Service: 03/23/2022 This is a clinical summary of care provided for the duration of dates listed above. No charge was made in the completion of this documentation. Referring Doctor: AARON Lopez PT Orders: PT CONSULT: S/P Ortho surgery Precautions: Fall. Standard.? WBAT on right LE with AD. Patient Profile/Admitting Diagnosis:? Mamadou is a 61-year-old male with pre-existing memory deficit with osteoarthritis of the right knee and is status post right total knee arthroplasty on postoperative day 1. PMHX: Medical History? Adenomatous colon polyp Arthritis of left ankle Degenerative joint disease HTN (hypertension) Hyperlipidemia Impingement of left ankle joint Memory deficit Myalgia Osteoarthritis of right knee Post-nasal drip Renal impairment Sensorineural hearing loss of both ears Tinnitus, bilateral Tremor Unilateral primary osteoarthritis, left knee Varicose veins of both lower extremities Surgical History? History of colonoscopy 2009 History of inguinal hernia as ~2 yo Social History/Home Situation: Mamadou lives with his sister in a private home with 2 steps to enter with rails on both sides.? His bedroom is on the basement with 3 steps to enter with bilateral rails.? Sister does not work and has been doing grocery shopping and meal preparation/cooking for patient.? Does not drive. Equipment Owned/DME: None Subjective: NT. Please see most recent SENIOR COMPLIANCE ANALYST notes. Objective: General Observation: NT. Please see most recent SENIOR COMPLIANCE ANALYST notes. Mental Status: NT. Please see most recent SENIOR COMPLIANCE ANALYST notes. Pain: NT. Please see most recent SENIOR COMPLIANCE ANALYST notes. Vital Signs: NT. Please see most recent SENIOR COMPLIANCE ANALYST notes. ROM: Right Lower Extremity: Hip flexion WFL. Hip abduction WFL. Knee flexion 0 degrees to 95 degrees.? Knee extension 95 degrees to 0 degrees.. Ankle dorsiflexion WFL. Ankle plantarflexion WFL. Left Lower Extremity: Hip flexion WFL. Hip abduction WFL. Knee flexion WFL. Ankle dorsiflexion WFL. Ankle plantarflexion WFL. Strength: Right Lower Extremity: Hip flexors 5/5. Hip abductors 5/5. Knee flexors 3-/5. Knee extensors 3-/5. Ankle dorsiflexors 5/5. Ankle plantarflexors 5/5. Left Lower Extremity: Hip flexors 5/5. Hip abductors 5/5. Knee flexors 5/5. Knee extensors 5/5. Ankle dorsiflexors 5/5. Ankle plantarflexors 5/5. Bed Mobility/Transfers: Supine to sit independent Sit to stand supervision with moderate cueing provided for safe and correct technique Stand to sit supervision with moderate cueing provided for safe and correct technique Bed to toilet seat supervision with minimal cueing provided for correct gait pattern and walker management Bed to reclining chair supervision with minimal cueing provided for correct gait pattern and walker management Gait: Instructed patient with level surface ambulation of up to 300 feet requiring standby assist. Shamika decreased.? Step to gait pattern.? Moderate cues given for safe gait pattern and walker management.? Needs to do gradual turning to minimize pain,? tends to be impulsive.? Oxygen saturation stayed above 92% on room air after activity. Stairs: Up and down 6 x 4 inch steps and 4 x 6 inch steps while holding onto the rails with step technique gait pattern requiring only standby assist and moderate verbal cueing for correct technique. Balance: Static Sitting: Normal Dynamic Sitting: Normal Static Standing: Fair Dynamic Standing: Fair Assessment: Patient demonstrates functional mobility decline requiring the use of FWW for all mobility ADL performance.? Requires moderate cueing for safety and sequence due to cognitive impairment. Tends to be impulsive but able to follow safety instructions if emphasized. Patient presents with clinical signs and symptoms consistent with current/admitting diagnoses that have resulted to mobility limitations, gait instability, generalized weakness, and overall ADL decline as demonstrated by the following impairment level findings: 1.? Decreased strength to right knee? major muscle groups 2.? Impaired sitting/standing balance 3.? Impaired activity tolerance 4.? Limitation of joint range of motion in right knee Impairments are contributing to the following functional limitations: 1.? Difficulty with ambulation without assistive device 2.? Increased completion time for mobility ADL performance Goals: Goals X1 week 1. Supine-Sit independent NOT MET 2. Sit-Supine independent NOT MET 3. Sit-Stand independent NOT MET 4. Stand-Sit independent with FWW NOT MET 5. Bed-Chair independent with FWW NOT MET 6. Chair-Bed independent with FWW NOT MET 7. Independent gait on level surface with use of FWW for at least 300 feet without report of pain nor dyspnea NOT MET 8. Independent stair negotiation while holding onto B rails for at least 5 steps without report of pain nor dys NOT METpnea 9. Independent with home exercise program NOT MET 10. Good static and dynamic standing balance/tolerance NOT MET DISCHARGE RECOMMENDATIONS: [] ? Home with no services [] [] ? Home with services [specify] [X] ? Home with outpatient PT.? Home when medically cleared by orthopedic surgeon.? Outpatient PT services to return to independent ADL performance and community ambulation without an assistive device. [] ? SNF for continued rehabilitation [] [] ? Electronic Parts Salesperson Care [] [] ? SNF versus LTC based on ability to participate and progress [] TREATMENT CODE/TIME: JULIAN Thank you for the opportunity to participate in the care of this patient. Sirisha Hobson PT, DPT, CLT [facility] [place], [place]
== END 2022-03-23 15:19 | disposition home or self-care (01) ==
LOC: SUR 03-23 09:11 → MS 03-23 09:12
PROVIDERS: Admitting Provider Student in an Organized Health Care Education/Training Program; PCP Nurse Practitioner Family; Visit Provider Student in an Organized Health Care Education/Training Program
PROC: (CPT 27447; principal; 2022-03-22 13:45)
DX: M17.11 Unilateral primary osteoarthritis, right knee (principal); E66.9 Obesity, unspecified; F70 Mild intellectual disabilities; I10 Essential (primary) hypertension; E78.5 Hyperlipidemia, unspecified; I83.93 Asymptomatic varicose veins of bilateral lower extremities; N28.9 Disorder of kidney and ureter, unspecified
CPT/HCPCS: 27447; C1776; 36416; 82962; 96361; 96365; 96375; G0378; J0690; J1100; J2250; J2370; J2405; J3010

== ENCOUNTER 2022-04-08 10:51 | Outpatient (CLI) | payer MEDICARE, SELFPAY ==
--- NOTE | 2022-04-08 10:15 | DI.RAD_ITS ---
Exam(s) XR STANDING ALIGNMENT XR KNEE RT 1V EXAM: XR STANDING ALIGNMENT and XR knee RT 1 V CLINICAL HISTORY: 1ST POST OP R TKA. TECHNIQUE: 2D digital imaging was performed. Five images were obtained. COMPARISON: CR XR STANDING ALIGNMENT from 01/24/2022 CR XR KNEE RT 1V from 01/24/2022 FINDINGS: BONES: No acute fracture is present. No bony destructive lesion is seen. The patient has a right tot al knee replacement which appears in good position. There is a small suprapatellar right joint effus ion. An enthesophyte is seen at the superior patella. Moderate degenerative changes are seen in the left knee, with joint space narrowing and periarticular spurring. The findings are most marked in t he left medial femoral tibial joint. Degenerative changes are seen in the hips. The ankles are well maintained. The left lower extremity measures 97.5 cm. The right lower extremity measures 96.2 cm. SOFT TISSUE: Normal. IMPRESSION: 1. Status post right total knee replacement. 2. Moderate degenerative changes of the left knee. DATA REPOSITORY: RADIATION DOSE DELIVERED:
== END 2022-04-08 10:52 | disposition home or self-care (01) ==
LOC: DIORS 10:51
PROVIDERS: PCP Nurse Practitioner Family; Referring Provider Nurse Practitioner Family; Visit Provider Physician Assistant Surgical
DX: Z96.651 Presence of right artificial knee joint (principal); Z47.1 Aftercare following joint replacement surgery
CPT/HCPCS: 73560; 77073

== ENCOUNTER → 2022-05-06 11:04 | Outpatient (BNVA) | payer MEDICARE, SELFPAY | PROVIDERS: PCP Nurse Practitioner Family; Referring Provider Nurse Practitioner Family; Visit Provider Physician Assistant Surgical | DX: Z47.1 Aftercare following joint replacement surgery (principal); Z96.651 Presence of right artificial knee joint ==

== ENCOUNTER 2022-05-10 03:00 | Outpatient (CLI) | payer MEDICARE, SELFPAY ==
[2022-05-10 11:24] LABS: Source Nasal/Nares
[2022-05-10 16:45] LABS: COVID-19 PCR Negative (Negative)
== END 2022-05-10 03:01 | disposition home or self-care (01) ==
LOC: LBO 03:00
PROVIDERS: PCP Nurse Practitioner Family; Visit Provider Student in an Organized Health Care Education/Training Program
DX: Z20.822 Contact with and (suspected) exposure to COVID-19 (principal); Z01.818 Encounter for other preprocedural examination
CPT/HCPCS: 87635

== ENCOUNTER 2022-05-11 08:27 | Day surgery (SDC) | payer MEDICARE, SELFPAY ==
--- NOTE | 2022-05-11 07:26 | PDOC.DSDIS_ITS ---
Discharge Plan Disposition Patient Disposition: HOME Condition: Good Discharge Details Reason For Visit: Right Knee Manipulation Attending Provider: Brian Del Rio Primary Care Provider: Anahi Stubbs Home Meds and New Rx's Prescriptions: New ibuprofen 600 mg tablet 600 mg PO TID Qty: 30 0RF acetaminophen 500 mg capsule 1,000 mg PO Q8H PRN PRNQty: 30 0RF oxycodone 5 mg tablet 5 mg PO Q4H PRNQty: 10 0RF Continued amlodipine 10 mg tablet 5 mg PO HS losartan 100 mg tablet 100 mg PO HS cholecalciferol (vitamin D3) 25 mcg (1,000 unit) capsule 25 mcg PO HS atenolol 100 mg tablet 100 mg PO HS fluticasone propionate 50 mcg/actuation spray,suspension 1 spray intranasal DAILY PRN Rx Instructions: administer into each nostril loratadine [Claritin] 10 mg tablet 10 mg PO HS terazosin 1 mg capsule 1 mg PO QHS celecoxib [Celebrex] 200 mg capsule 200 mg PO BID Qty: 60 0RF aspirin 81 mg tablet,delayed release (DR/EC) 81 mg PO BID Qty: 60 0RF pantoprazole [Protonix] 40 mg tablet,delayed release (DR/EC) 40 mg PO DAILY Qty: 30 0RF acetaminophen 500 mg capsule 1,000 mg PO Q8H PRN PRNQty: 90 0RF oxycodone 5 mg tablet 5 mg PO Q4H PRNQty: 18 0RF Discharge Instructions Additional Instructions: Knee Manipulation Discharge Instructions Activity: You should begin moving as soon as possible. You may work on flexion but also equally maintain extension. You may bear weight as tolerated, using crutches only for support/comfort. You should apply ice to help with swelling and elevate when possible (especially in the first few days). Dressings: The knee dressing may come down after 48 hours. You may shower and get the wound wet at that time. You should keep the wounds covered with a bandaid until follow-up. Medications: - Rarely does this require any stronger pain medications however, you were prescribed a stronger medication, Oxycodone, for breakthrough pain. - Recommend to take up to 1000mg of Acetaminophen (Tylenol) and 600mg of Ibuprofen (Advil) every 8 hours as needed. These larger strength tablets were called in but you also may use [id number]. Follow-up: 7-10 days Referrals: Brian Del Rio MD [ [facility] STAFF PHYSICIAN] - Activity:: Activity as Tolerated Diet:: As Tolerated Discharge Orders Discharge Orders: Discharge Order (Routine); Ordered 05/11/22 Ordered By: Maria Dolores Duke DS: Diagnosis Discharge Diagnosis (1) Arthrofibrosis of total knee arthroplasty: Status: Acute (2) History of total right knee replacement: Status: Acute
[2022-05-11 08:39] VITALS: BP 128/90; PULSE 64; RESP 22; TEMP 36.7; O2SAT 97
--- NOTE | 2022-05-11 09:03 | ANES.PREOP_ITS ---
General Info Date of Service Date Performed: 05/11/22 Height: 5 ft 11 in Weight: 110.8 kg Body Mass Index (BMI): 34.0 Surgical Procedure: Operation Date: 05/11/22 11:10 Proposed Procedure Side Surgeon p Knee Manipulation of Knee Right Brian Del Rio MD Meds Allergies and Home Medications Allergies Allergy/AdvReac Type Severity Reaction Status Date / Time CLARA Inhibitors AdvReac Unknown Verified 05/11/22 08:46 Home Medication Medication Instructions Recorded amlodipine 10 mg tablet 5 mg PO HS 11/26/18 losartan 100 mg tablet 100 mg PO HS 11/26/18 atenolol 100 mg tablet 100 mg PO HS 09/24/20 fluticasone propionate 50 1 spray intranasal DAILY PRN 09/24/20 mcg/actuation nasal spray,suspension loratadine 10 mg tablet (Claritin) 10 mg PO HS 07/01/21 terazosin 1 mg capsule 1 mg PO QHS 07/01/21 cholecalciferol (vitamin D3) 25 25 mcg PO HS 10/15/21 mcg (1,000 unit) capsule acetaminophen 500 mg capsule 1,000 mg PO Q8H PRN PRN #90 caps 03/23/22 aspirin 81 mg tablet,delayed 81 mg PO BID #60 tabs 03/23/22 release celecoxib 200 mg capsule (Celebrex) 200 mg PO BID #60 caps 03/23/22 oxycodone 5 mg tablet 5 mg PO Q4H PRN #18 tabs 03/23/22 pantoprazole 40 mg tablet,delayed 40 mg PO DAILY #30 tabs 03/23/22 release (Protonix) acetaminophen 500 mg capsule 1,000 mg PO Q8H PRN PRN #30 caps 05/11/22 ibuprofen 600 mg tablet 600 mg PO TID #30 tabs 05/11/22 oxycodone 5 mg tablet 5 mg PO Q4H PRN #10 tabs 05/11/22 Current Visit Medications: Current Medications Generic Name Dose Route Start Last Admin Trade Name Freq PRN Reason Stop Dose Admin Acetaminophen 650 mg 05/11/22 07:25 Acetaminophen 325 Mg Tab PO Q4H PRN PRN Ringer's Solution 1,000 mls @ 80 mls/hr 05/11/22 06:00 IV 06/09/22 23:59 INFUSION JESSY Ondansetron HCl 4 mg/ Sodium 52 mls @ 200 mls/hr 05/11/22 07:25 Chloride IVPB Q6H PRN PRN IV Miscellaneous Supplies 1 each 05/11/22 06:00 Iv Access IV 06/09/22 23:59 DIRECTED [facility] Oxycodone HCl 5 mg 05/11/22 07:25 Oxycodone 5 Mg Tab PO Q3H PRN PRN Pain Sodium Chloride 0 ml 05/11/22 06:00 Normal Saline Flush 10 Ml Syr IV 06/09/22 23:59 PRN PRN Sodium Chloride 0 ml 05/11/22 06:00 Normal Saline 10 Ml Vial IJ 06/09/22 23:59 DIRECTED PRN Sterile Water 0 ml 05/11/22 06:00 Water,Injection,Sterile 10 Ml Vial IJ 06/09/22 23:59 DIRECTED PRN PFSH Active Problems Active Problems: Problem Status Onset Code Arthrofibrosis of total knee arthroplasty T84.82XA History of total right knee replacement 03/22/22 Z96.651 Osteoarthritis of left knee M17.12 Screening for colon cancer Z12.11 Colorectal polyps K63.5 Family history of colon cancer Z80.0 Obesity E66.9 Mild intellectual disability F70 Medical History Medical History Adenomatous colon polyp Arthritis of left ankle Degenerative joint disease HTN (hypertension) Hyperlipidemia Impingement of left ankle joint Memory deficit Myalgia Osteoarthritis of right knee Post-nasal drip Renal impairment Sensorineural hearing loss of both ears Tinnitus, bilateral Tremor Unilateral primary osteoarthritis, left knee Varicose veins of both lower extremities Medical History Comments:: Per pt. sister stated when he had his recent TKA, he was very hypothermic, and have a lot of PONV and ended up staying overnight due to his core temperature. Surgical History Surgical History History of colonoscopy 2009 History of inguinal hernia as ~2 yo Tobacco Smoking/Tobacco Use Status: Never Alcohol Alcohol Intake: never Substance Use Substance use: Never Substance use type: does not use Vital Signs and Lab Results Vital Signs Most Recent Vital Signs in EMR: Most Recent Vital Signs Temp Pulse Resp BP Pulse Ox 36.7 C 64 22 128/90 97 05/11/22 08:39 05/11/22 08:39 05/11/22 08:39 05/11/22 08:39 05/11/22 08:39 Lab Results Blood Type / Crossmatch: No Data to Display Complete Blood Count: No Data to Display Complete Metabolic Panel: No Data to Display Liver Function Panel: No Data to Display Coagulation Panel: No Data to Display Cardiac Panel: No Data to Display Arterial Blood Gas: No Data to Display Venous Blood Gas: No Data to Display Pancreas Panel: No Data to Display Thyroid Panel: No Data to Display Infectious Disease: Coronavirus (COVID-19)(PCR) Negative (Negative) 05/10/22 09:54 Coronavirus 2019 Source Nasal/Nares 05/10/22 09:54 Blood Cultures: No Data to Display Toxicology Panel: No Data to Display Anesthesia Assessment and Plan Anesthesia History Personal History: Other Family History: No Family History of Anesthesia Complications Exercise Tolerance Exercise Tolerance: Metabolic Equivalents>4 Pertinent Negatives Pertinent Negatives: No Major Cardiovascular Symptoms or Complaints and No Major Pulmonary Symptoms or Complaints Cardiac & Pulmonary Exam Cardiac Exam: Normal S1/S2 Heart Sounds Pulmonary Exam: Clear Bilateral Breath Sounds Implantable Cardiac Device Does patient have a Pacemaker or an ICD?: No Airway Exam Known Difficult Airway: No Mallampati Class: 2 Mouth Opening: Normal (> 3cm) Thyromental Distance: Greater than 3 cm Neck Range of Motion: Full ROM Neck Circumference: Normal Teeth Condition: Normal Dentition ASA Classification ASA Score: ASA 2 Emergency Case?: No NPO Status NPO Status: NPO Clears >2 hours, Solids >8 hours Anesthesia Plan Resuscitation Status: Full Code Anesthesia Technique: General Anesthesia Airway Planned: Natural Airway Pain Management: Surgeon and patient request nerve block Monitors Used: Standard Monitors
[2022-05-11] MEDS: Lactated Ringers 1,000 ML 80 ML IV (09:06)
[2022-05-11 09:23] VITALS: BP 170/98; PULSE 63; RESP 24; TEMP 36.5; O2SAT 98
[2022-05-11 09:27] VITALS: BMI 34.0
[2022-05-11] MEDS: Bupivacaine 0.5% Pres-Free 30 ML VIAL (09:38)
--- NOTE | 2022-05-11 09:45 | ROE_ITS ---
Date of service: 05/11/22 Time of Service: 09:46 Operative Note Operative Note DATE OF PROCEDURE: 05/11/22 PRE-OP DIAGNOSIS: Right Knee Arthrofibrosis s/p Replacement POST-OP DIAGNOSIS: same PROCEDURE: Right Knee Manipulation Under Anesthesia SURGEON: Brian Del Rio ANESTHESIA TYPE: General:No Airway Refer to Anesthesia Record ESTIMATED BLOOD LOSS: 0 PATHOLOGY: none sent TOURNIQUET TIME: 0 COMPLICATIONS: None Patient was transported to: PACU Patient's condition: stable Indications: Mamadou is a 61 year old male who is s/p knee replacement. Despite diligent work with physical therapy there has been continued stiffness. To assist with mobility, I offered a manipulation under anesthesia. I discussed the risks of the procedure to include bleeding, pain, recurrent stiffness, fracture. Despite these risks, [she] elects to proceed. Findings: Preoperative flexion = 95 Postoperative flexion = 125 Preoperative extension = 15 Postoperative extension = 7 Procedure Description: The patient is was greeted in the preoperative holding area. Identity was confirmed and the correct side was identified and marked. The consent was reviewed the patient and signed. History and physical was updated. Edwardo was taken back to the operating room. The right side was identified as the correct side. A timeout was performed for safe surgery. A general anesthetic was administered. The knee was then prepped with ChloraPrep and an intra-articular injection of 10 cc of 0.5% bupivacaine was administered. Once a muscle relaxant was fully on board manipulation was performed. Pre- manipulation range of motion was noted. A gentle manipulation was performed first into flexion using a very small lever arm and adding gentle and progressive pressure to the tibia. There is audible and palpable crepitus with improvement in range of motion. This was cycled and repeated multiple times. The leg was then brought into extension and gentle anterior posterior pressure was applied with a supported hand behind the proximal tibia and knee. This was brought back into flexion was once again manipulated with gentle and progressive pressure. Final range of motion numbers were recorded. A Band-Aid was applied to the injection site. Edwardo was awakened from anesthesia and taken to the PACU in stable condition.
[2022-05-11 09:52] VITALS: BP 138/88; PULSE 61; RESP 16; TEMP 36.7; O2SAT 96
--- NOTE | 2022-05-11 10:02 | W.ANESPOSTOP ---
Postoperative Evaluation Date, Time and Location Date Performed: 05/11/22 Time Performed: 09:55 Patient Location: Day Surgery Unit Vital Signs Most Recent Imported Vital Signs: Most Recent Vital Signs Temp Pulse Resp BP Pulse Ox 36.7 C 61 16 138/88 96 05/11/22 09:52 05/11/22 09:52 05/11/22 09:52 05/11/22 09:52 05/11/22 09:52 Pain Score Most Recent Pain Score: Most Recent Pain Score Pain Level 0 05/11/22 09:52 Assessment Mental Status: Awake (Alert & Oriented to Patient Baseline) Airway and Respiratory Function: Patent airway with normal (patient baseline) respiratory exam Cardiovascular Function: Hemodynamically Stable Hydration Status: Adequately Hydrated Nausea & Vomiting: No Nausea or Vomiting Pain: Pt. Denies Any Pain Peripheral Nerve Block: Regional nerve block not resolved at time of post operative discharge
--- NOTE | 2022-05-11 10:20 | W.ANESNERVE ---
Nerve Block Single Injection Procedure Date and Time Date Performed: 05/11/22 Procedure Start: 09:21 Location Where Procedure Performed Procedure Location: Day Surgery Unit Reason Performed: Postoperative Analgesia Requesting Provider: Brian Del Rio Timeout Performed Timeout Performed: Yes Monitoring Used ECG, Blood Pressure, SpO2 and See EMR for corresponding vital signs Sterility Sterility: Hand Hygiene, Surgical Cap, Surgical Mask, Sterile Gloves, Eye Protection and Chlorhexidine Sedation Given During Procedure Sedation Given (Indicate Dose Given): No Sedation given Patient Mental Status Patient Mental Status: Awake Nerve Block 1st Nerve Block: Laterality: Right Block Type: Adductor Canal Needle / Catheter Used: 100mm SonoPlex II Local Anesthetic Bolus (Indicate Dose Given): Lidocaine used for local infiltration of skin, Injected in 3-5ml increments after negative blood aspiration and Bupivacaine 0.375% Dose:: 15 mL Additives (Indicate Dose Given): None Ultrasound: Sterile probe cover and gel used Ultrasound Image Saved?: Yes Nerve Stimulator: Not Used Paresthesia: None Procedure Tolerated: No Complications Procedure Outcome: Successful Performed By: Quyen Estrella
[2022-05-11 10:25] VITALS: BP 150/91; PULSE 56; RESP 21; TEMP 36.6; O2SAT 93
== END 2022-05-11 11:30 | disposition home or self-care (01) ==
PROVIDERS: PCP Nurse Practitioner Family; Visit Provider Student in an Organized Health Care Education/Training Program
PROC: (CPT 27570; principal; 2022-05-11 11:00)
DX: T84.82XA Fibrosis due to internal orthopedic prosthetic devices, implants and grafts, initial encounter (principal); Z96.651 Presence of right artificial knee joint; I10 Essential (primary) hypertension; E78.5 Hyperlipidemia, unspecified
CPT/HCPCS: 27570; 76942; J1100; J1885; J2405; J2704

== ENCOUNTER → 2022-05-23 13:55 | Outpatient (BNVA) | payer MEDICARE, SELFPAY | PROVIDERS: PCP Nurse Practitioner Family; Referring Provider Nurse Practitioner Family; Visit Provider Physician Assistant Surgical | DX: Z47.1 Aftercare following joint replacement surgery (principal); Z96.651 Presence of right artificial knee joint; T84.82XA Fibrosis due to internal orthopedic prosthetic devices, implants and grafts, initial encounter ==

== ENCOUNTER → 2022-07-05 14:41 | Outpatient (BNVA) | payer MEDICARE, SELFPAY | PROVIDERS: PCP Nurse Practitioner Family; Referring Provider Nurse Practitioner Family; Visit Provider Psychiatry & Neurology Neurology | DX: R25.1 Tremor, unspecified (principal); R41.3 Other amnesia | CPT/HCPCS: 99214 ==

== ENCOUNTER → 2022-08-30 09:03 | Outpatient (BNVA) | payer MEDICARE, SELFPAY | PROVIDERS: PCP Nurse Practitioner Family; Referring Provider Nurse Practitioner Family; Visit Provider Surgery | DX: Z86.010 Personal history of colon polyps (principal); Z12.11 Encounter for screening for malignant neoplasm of colon ==

== ENCOUNTER 2022-09-05 06:06 | Day surgery (SDC) | payer MEDICARE, SELFPAY ==
[2022-09-05 06:22] VITALS: BP 133/86; PULSE 65; RESP 16; TEMP 36.7; O2SAT 97
--- NOTE | 2022-09-05 06:34 | W.COLOREPORT ---
Date of service: 09/05/22 Time of Service: : Colonoscopy Report Date of procedure: 09/05/22 Pre-op diagnosis general: colon cancer screening and Hx of polyps Post-op diagnosis procedure note: other (polyps) Procedure: Colonoscopy with polypectomy Surgeon: Manju King Anesthesia Type: General:No Airway Estimated blood loss (mL): 3 Pathology: other (cecal polyp, sigmoid and rectal polyps) Complications: None Disposition: same day Indications: The patient? is a pleasant? 61-year-old male who is here to discuss another screening colonoscopy. ? His last colonoscopy was in 2019 and he a sessile serrated polyp.? He denies any changes in bowel habits, melena, hematochezia, unintentional weight loss or family history of colon cancer.? The procedure and risks were discussed.? The prep was reviewed in detail.? Risks, benefits and complications have been reviewed. Complications include but are not limited to bleeding, pain, perforation, missed small lesion/polyp, sore throat, aspiration and adverse reaction to the medications. Questions were entertained and answered to their satisfaction and they wished to proceed. No guarantees were given or implied. Prep: Miralax/Dulcolax Procedure Start Time: : Procedure End Time: 08:01 Retraction Time: 19 minutes Findings: 5 polyps Procedure Description: After informed consent was obtained the patient was taken to the procedure room and placed in a left decubitous position. Monitors were applied and a time out was done. The patients name, date of , procedure, allergies to medications and metal in their body was reviewed. The patient was then sedated. Once sedated and comfortable a rectal exam was done. External exam was normal. Internal exam revealed a normal sphincter tone and no palpable masses. The prostate felt smooth. The scope was then introduced and retro-flexed. No internal hemorrhoids, polyps or masses were identified on retro-flexion. The scope was then advanced to the cecum without difficulty. The ileocecal valve and appendiceal orifice were identified. The prep was good. The scope was then slowly retracted over 19 minutes back into the rectum. Polyps were removed with a hot snare in the cecum and with cold forceps in the sigmoid colon x2 and rectum x2. There was no diverticulosis noted. The scope was removed and the patient was woken up and taken back to Same day surgery in stable condition. The patient tolerated the procedure well and there were no immediate complications.
--- NOTE | 2022-09-05 06:35 | W.PM.DSUDISC ---
Date of service: 09/05/22 Time of Service: 07:29 Discharge Plan Disposition Patient Disposition: HOME Condition: Good Discharge Details Reason For Visit: colonsocopy Attending Provider: Manju King Primary Care Provider: Anahi Stubbs Home Meds and New Rx's Prescriptions: Continued amlodipine 10 mg tablet 5 mg PO HS losartan 100 mg tablet 100 mg PO HS vitamin B complex [B Complex-Vitamin B12] Tablet 1 tab PO DAILY cholecalciferol (vitamin D3) 10 mcg (400 unit) capsule 10 mcg PO DAILY atenolol 100 mg tablet 100 mg PO HS fluticasone propionate 50 mcg/actuation spray,suspension 1 spray intranasal DAILY PRN Rx Instructions: administer into each nostril loratadine [Claritin] 10 mg tablet 10 mg PO HS terazosin 1 mg capsule 1 mg PO QHS acetaminophen 500 mg capsule 1,000 mg PO Q8H PRN PRNQty: 30 0RF Discontinued bisacodyl [Dulcolax (bisacodyl)] 5 mg tablet,delayed release (DR/EC) 5 mg PO ONCE Qty: 4 0RF Rx Instructions: Take according to provider's instructions for colonoscopy prep. polyethylene glycol 3350 17 gram/dose powder 17 g PO ONCE Qty: 238 0RF Rx Instructions: To be taken as directed by prescriber's office for colonoscopy prep. Discharge Instructions Instructions: Colorectal Polyps (DC) Additional Instructions: Findings: 5 polyps Follow up: 3-5 years Please call if you develop: fevers >101.5 Nausea or Vomiting Abdominal pain that is not transient Rectal bleeding that is more then a tbsp A hard abdomen and inability to pass gas DAY SURGERY UNIT POST ENDOSCOPY INSTRUCTIONS Instructions for everyone who is given Anesthesia: For your safety, please do the following for the next 24 Hours: a. Do not drive or operate dangerous equipment b. Do not drink alcohol beverages or use any recreational drugs for the first 24 hours or while taking pain medications. The medications in your body may have a reaction that can be dangerous. c. Do not make any important decisions or sign any important papers 1. Generally there are no restrictions on your activity after a day or so has gone by, but you may feel a bit fatigued for a few days. 2. After you arrive home you may have a light meal and return to a normal diet as you can tolerate it without feeling sick to your stomach. 3. After surgery, you may feel pain or discomfort. This should be only transient, but if it persists please contact your doctor. 4. If there are any questions regarding the findings of your procedure, please feel free to contact your doctor. 6. If you are unable to contact your doctor with a problem, contact the hospital at [phone]. 7. Continue all your regular medications unless directed otherwise. I understand the above instructions and have no questions. Signature of Patient or Responsible Adult Escort Date/Time Name of Responsible Adult Escort Signature of Nurse Date/Time Activity:: Activity as Tolerated Diet:: As Tolerated Discharge Orders Discharge Orders: Discharge Order (Routine); Ordered 09/05/22 Ordered By: Manju King
--- NOTE | 2022-09-05 07:00 | W.ANESPRE ---
General Info Date of Service Date Performed: 09/05/22 Height: 5 ft 11 in Weight: 109.6 kg Body Mass Index (BMI): 33.7 Surgical Procedure: Operation Date: 09/05/22 07:35 Proposed Procedure Side Surgeon p Luis King MD Meds Allergies and Home Medications Allergies Allergy/AdvReac Type Severity Reaction Status Date / Time CLARA Inhibitors AdvReac Unknown Verified 09/05/22 06:32 Home Medication Medication Instructions Recorded amlodipine 10 mg tablet 5 mg PO HS 11/26/18 losartan 100 mg tablet 100 mg PO HS 11/26/18 atenolol 100 mg tablet 100 mg PO HS 09/24/20 fluticasone propionate 50 1 spray intranasal DAILY PRN 09/24/20 mcg/actuation nasal spray,suspension loratadine 10 mg tablet (Claritin) 10 mg PO HS 07/01/21 terazosin 1 mg capsule 1 mg PO QHS 07/01/21 acetaminophen 500 mg capsule 1,000 mg PO Q8H PRN PRN #30 caps 05/11/22 bisacodyl 5 mg tablet,delayed 5 mg PO ONCE #4 tabs 08/30/22 release (Dulcolax (bisacodyl)) cholecalciferol (vitamin D3) 10 10 mcg PO DAILY 08/30/22 mcg (400 unit) capsule polyethylene glycol 3350 17 17 g PO ONCE #238 grams 08/30/22 gram/dose oral powder vitamin B complex (B 1 tab PO DAILY 08/30/22 Complex-Vitamin B12 tablet) Current Visit Medications: Current Medications Generic Name Dose Route Start Last Admin Trade Name Freq PRN Reason Stop Dose Admin Hyoscyamine Sulfate 0.125 mg 09/05/22 06:35 Hyoscyamine 0.125 Mg Sl/Oral/Chew SL DIRECTED PRN Ringer's Solution 1,000 mls @ 80 mls/hr 09/05/22 06:00 IV 10/02/22 23:59 INFUSION [facility] IV Miscellaneous Supplies 1 each 09/05/22 06:00 Iv Access IV 10/02/22 23:59 DIRECTED [facility] Ondansetron HCl 4 mg 09/05/22 06:35 Ondansetron 4 Mg/2 Ml Vial IVP Q4H PRN PRN Nausea / Vomiting Sodium Chloride 0 ml 09/05/22 06:00 Normal Saline Flush 10 Ml Syr IV 10/02/22 23:59 PRN PRN Sodium Chloride 0 ml 09/05/22 06:00 Normal Saline 10 Ml Vial IJ 10/02/22 23:59 DIRECTED PRN Sterile Water 0 ml 09/05/22 06:00 Water,Injection,Sterile 10 Ml Vial IJ 10/02/22 23:59 DIRECTED PRN PFSH Active Problems Active Problems: Problem Status Onset Code Mild intellectual disability F70 Obesity E66.9 Family history of colon cancer Z80.0 Colorectal polyps K63.5 Screening for colon cancer Z12.11 Osteoarthritis of left knee M17.12 History of total right knee replacement 03/22/22 Z96.651 Arthrofibrosis of total knee arthroplasty T84.82XA Serrated adenoma of colon D12.6 Medical History Medical History Adenomatous colon polyp Arthritis of left ankle Degenerative joint disease HTN (hypertension) Hyperlipidemia Impingement of left ankle joint Memory deficit Myalgia CANDICE (obstructive sleep apnea) Osteoarthritis of right knee Post-nasal drip Renal impairment Sensorineural hearing loss of both ears Tinnitus, bilateral Tremor Unilateral primary osteoarthritis, left knee Varicose veins of both lower extremities Medical History Comments:: Per pt. sister stated when he had his recent TKA, he was very hypothermic, and have a lot of PONV and ended up staying overnight due to his core temperature. Surgical History Surgical History (Updated 09/05/22 @ 06:31 by Beena Mcpherson RN) History of colonoscopy 2018 (ssa) History of inguinal hernia as ~2 yo Hx of total knee arthroplasty right Tobacco Smoking/Tobacco Use Status: Never Alcohol Alcohol Intake: never Substance Use Substance use: Never Substance use type: does not use Vital Signs and Lab Results Vital Signs Most Recent Vital Signs in EMR: Most Recent Vital Signs Temp Pulse Resp BP Pulse Ox 36.7 C 65 16 133/86 97 09/05/22 06:22 09/05/22 06:22 09/05/22 06:22 09/05/22 06:22 09/05/22 06:22 Lab Results Blood Type / Crossmatch: No Data to Display Complete Blood Count: No Data to Display Complete Metabolic Panel: No Data to Display Liver Function Panel: No Data to Display Coagulation Panel: No Data to Display Cardiac Panel: No Data to Display Arterial Blood Gas: No Data to Display Venous Blood Gas: No Data to Display Pancreas Panel: No Data to Display Thyroid Panel: No Data to Display Infectious Disease: No Data to Display Blood Cultures: No Data to Display Toxicology Panel: No Data to Display Anesthesia Assessment and Plan Anesthesia History Personal History: PONV, Delayed Emergence and Other Family History: No Family History of Anesthesia Complications Exercise Tolerance Exercise Tolerance: Metabolic Equivalents>4 Pertinent Negatives Pertinent Negatives: No Symptoms of GERD Cardiac & Pulmonary Exam Cardiac Exam: Normal S1/S2 Heart Sounds Pulmonary Exam: Clear Bilateral Breath Sounds Implantable Cardiac Device Does patient have a Pacemaker or an ICD?: No Airway Exam Known Difficult Airway: No Mallampati Class: 2 Mouth Opening: Normal (> 3cm) Thyromental Distance: Greater than 3 cm Neck Range of Motion: Full ROM Neck Circumference: Normal Teeth Condition: Normal Dentition ASA Classification ASA Score: ASA 2 Emergency Case?: No NPO Status NPO Status: NPO Clears >2 hours, Solids >8 hours Anesthesia Plan Resuscitation Status: Full Code Anesthesia Technique: General Anesthesia Airway Planned: Natural Airway Monitors Used: Standard Monitors
[2022-09-05 07:01] VITALS: BMI 33.7
[2022-09-05] MEDS: Lactated Ringers 1,000 ML 80 ML IV (07:08)
--- NOTE | 2022-09-05 07:44 | BOWEL_PTH ---
PATIENT: Mamadou Chin LOC: [facility] U#:[id number] AGE/SX: 61/M ROOM: RE09/05/[address]: Manju King MD : 1960 BED: DIS: 09/05/2022 SPEC #: [id number] RECD: 09/05/22 12:34 STATUS: KATJA RE #: [id number] CLARISSA: 09/05/22 07:[address]: Manju King DEPT: Surgical Specimen RECD BY: Lore Hernandez ENTERED: 09/05/22 12:35 SP TYPE: Bowel OTHR DR: Anahi Stubbs Tissues: 1 - BIOPSY BOWEL 2 - BIOPSY BOWEL 3 - BIOPSY BOWEL Procedures: GROSS AND MICRO LEVEL 4 Comments: [id number]
[2022-09-05 08:08] VITALS: BP 99/64; PULSE 75; RESP 18; TEMP 36.2; O2SAT 92
--- NOTE | 2022-09-05 08:29 | W.ANESPOSTOP ---
Postoperative Evaluation Date, Time and Location Date Performed: 09/05/22 Time Performed: 08:12 Patient Location: Day Surgery Unit Vital Signs Most Recent Imported Vital Signs: Most Recent Vital Signs Temp Pulse Resp BP Pulse Ox 36.2 C L 75 18 99/64 L 92 09/05/22 08:08 09/05/22 08:08 09/05/22 08:08 09/05/22 08:08 09/05/22 08:08 Pain Score Most Recent Pain Score: Most Recent Pain Score Pain Level 0 09/05/22 08:08 Assessment Mental Status: Awake (Alert & Oriented to Patient Baseline) Airway and Respiratory Function: Patent airway with normal (patient baseline) respiratory exam Cardiovascular Function: Hemodynamically Stable Hydration Status: Adequately Hydrated Nausea & Vomiting: No Nausea or Vomiting Pain: Pt. Denies Any Pain Peripheral Nerve Block: Patient did not receive a nerve block
[2022-09-05] MEDS: Hyoscyamine 0.125 MG SL/ORAL/CHEW SL (08:30)
[2022-09-05 08:32] VITALS: BP 113/72; PULSE 62; RESP 18; TEMP 36.3; O2SAT 94
== END 2022-09-05 09:12 | disposition home or self-care (01) ==
PROVIDERS: PCP Nurse Practitioner Family; Visit Provider Surgery
PROC: 0DJD8ZZ Inspection of Lower Intestinal Tract, Via Natural or Artificial Opening Endoscopic (ICD-10-PCS; CPT 45378; principal; 2022-09-05 07:30)
DX: Z12.11 Encounter for screening for malignant neoplasm of colon (principal); K62.1 Rectal polyp; Z80.0 Family history of malignant neoplasm of digestive organs; K63.5 Polyp of colon; Z86.010 Personal history of colon polyps
CPT/HCPCS: 45385; 45380; 88305; J3490

== ENCOUNTER 2022-10-10 15:20 | Outpatient (REF) | payer MEDICARE, SELFPAY ==
[2022-10-10 15:06] LABS: ALT 30 U/L (16-63); AST 23 U/L (15-37); Albumin 4.3 g/dL (3.4-5.0); Alkaline Phosphatase 96 U/L (46-116); Anion Gap 10.5 mmol/L (3-11); BUN 16 mg/dL (7-18); Bilirubin, Total 0.6 mg/dL (0.2-1.0); CO2 26.5 mmol/L (21.0-32.0); CREATININE 1.3 mg/dL (0.70-1.30); Calculated LDL 48 mg/dL (<100); Chloride 105 mmol/L (98-107); Cholesterol 138 mg/dL (<200); Glucose 95 mg/dL (74-106); HDL Cholesterol 34 mg/dL (40-60); Potassium 4.1 mmol/L (3.5-5.1); Sodium 142 mmol/L (136-145); Total Protein 7.6 g/dL (6.4-8.2); Triglyceride 283 mg/dL (<150)
[2022-10-10 15:56] LABS: Hemoglobin A1C 5.2 % (<5.7)
== END 2022-10-10 15:21 | disposition home or self-care (01) ==
LOC: NCHCN 15:20
PROVIDERS: PCP Nurse Practitioner Family; Visit Provider Nurse Practitioner Family
DX: E66.9 Obesity, unspecified (principal); R41.3 Other amnesia; I10 Essential (primary) hypertension; E78.5 Hyperlipidemia, unspecified; D12.6 Benign neoplasm of colon, unspecified; G47.33 Obstructive sleep apnea (adult) (pediatric)
CPT/HCPCS: 80053; 80061; 83036

== ENCOUNTER 2023-04-10 15:02 | Outpatient (CLI) | payer MEDICARE, SELFPAY ==
--- NOTE | 2023-04-10 14:45 | DI.RAD_ITS ---
Exam(s) XR KNEE RT 2V AP,LAT EXAM: XR KNEE RT 2V AP,LAT CLINICAL HISTORY: YEARLY F/U R TKA. TECHNIQUE: 2D digital imaging was performed. Two images were obtained. PA and lateral views were ob tained. COMPARISON: CR XR KNEE RT 1V from 04/08/2022 FINDINGS: BONES: There are stable post operative changes present. No fracture or dislocation. There are enthes ophytes at the anterior patella. JOINTS: The orthopedic hardware is in good position. No evidence of hardware loosening. SOFT TISSUE: Normal. IMPRESSION: Stable postoperative changes. DATA REPOSITORY: RADIATION DOSE DELIVERED:
== END 2023-04-10 15:03 | disposition home or self-care (01) ==
LOC: DIORS 15:02
PROVIDERS: PCP Nurse Practitioner Family; Referring Provider Nurse Practitioner Family; Visit Provider Student in an Organized Health Care Education/Training Program
DX: Z47.1 Aftercare following joint replacement surgery; Z96.651 Presence of right artificial knee joint
CPT/HCPCS: 99213; 73560

== ENCOUNTER 2023-07-18 13:57 | Outpatient (CLI) | payer MEDICARE, SELFPAY ==
--- NOTE | 2023-07-18 13:00 | DI.RAD_ITS ---
Exam(s) XR SHOULDER RT COMPLETE 2+V EXAM: XR SHOULDER RT COMPLETE 2+V CLINICAL HISTORY: RIGHT SHOULDER PAIN. TECHNIQUE: 2D digital imaging was performed. Three views. COMPARISON: No exams were available for comparison FINDINGS: BONES: No acute fracture is present. No bony destructive lesion is seen. JOINTS: No dislocation present. Moderate spurring at AC joint. Mild spurring at glenohumeral joint. Humeral head is normally position. Glenohumeral joint space is maintained. SOFT TISSUE: Normal. IMPRESSION: Mild degenerative changes. DATA REPOSITORY: RADIATION DOSE DELIVERED:
== END 2023-07-18 13:58 | disposition home or self-care (01) ==
LOC: DIORS 13:57
PROVIDERS: PCP Nurse Practitioner Family; Referring Provider Nurse Practitioner Family; Visit Provider Student in an Organized Health Care Education/Training Program
DX: M19.011 Primary osteoarthritis, right shoulder
CPT/HCPCS: 20610; 99203; 73030; J1030

== ENCOUNTER 2023-07-25 17:43 | Outpatient (REF) | payer MEDICARE, SELFPAY ==
[2023-07-25 20:53] LABS: ALT 37 U/L (16-63); AST 20 U/L (15-37); Abs Immature Grans 0.02 10^3/uL (0.0-0.06); Absolute Basophil Count 0.05 10^3/uL (0.0-0.2); Absolute Eosinophil Count 0.09 10^3/uL (0.0-0.7); Absolute Lymphocyte Count 1.56 10^3/uL (1.2-3.4); Absolute Monocyte Count 0.47 10^3/uL (0.1-0.8); Absolute Neutrophil Count 6.35 10^3/uL (1.2-6.7); Alkaline Phosphatase 93 U/L (46-116); Anion Gap 7.6 mmol/L (3-11); BUN 26 mg/dL (7-18); Basophils % 0.6; Bilirubin, Total 0.7 mg/dL (0.2-1.0); CO2 27.4 mmol/L (21.0-32.0); CREATININE 1.5 mg/dL (0.70-1.30); Calcium 8.9 mg/dL (8.5-10.1); Chloride 104 mmol/L (98-107); Eosinophils % 1.1; Estimated GFR 52.31 (mL/min/1.73m2); Glucose 176 mg/dL (74-106); HCT 45.7 % (40.0-50.0); HGB 15.5 g/dL (13.5-17.5); Immature Grans % 0.2; Lymphocytes % 18.3; MCH 30.2 pg (27.0-33.0); MCHC 33.9 % (32.0-36.0); MCV 89 fL (80-95); MPV 11.4 fL (8.0-11.0); Monocytes % 5.5; Neutrophils % 74.3; Platelet Count 207 10^3/uL (130-400); Potassium 3.5 mmol/L (3.5-5.1); RBC 5.14 10^6/uL (4.36-5.78); RDW 13.5 % (11.8-14.1); RDW-SD 43.7 fL; Sodium 139 mmol/L (136-145); Total Protein 7.1 g/dL (6.4-8.2); WBC 8.54 10^3/uL (4.4-10.8)
== END 2023-07-25 17:44 | disposition home or self-care (01) ==
LOC: NCHCN 17:43
PROVIDERS: PCP Nurse Practitioner Family; Visit Provider Family Medicine
DX: I10 Essential (primary) hypertension (principal); N28.9 Disorder of kidney and ureter, unspecified; G47.33 Obstructive sleep apnea (adult) (pediatric); N40.0 Benign prostatic hyperplasia without lower urinary tract symptoms
CPT/HCPCS: 80053; 85025

== ENCOUNTER 2023-07-31 02:00 | Outpatient (CLI) | payer MEDICARE, SELFPAY ==
[2023-07-31 14:56] LABS: HCT 44.7 % (40.0-50.0); HGB 15.4 g/dL (13.5-17.5); MCH 30.4 pg (27.0-33.0); MCHC 34.5 % (32.0-36.0); MCV 88 fL (80-95); MPV 10.8 fL (8.0-11.0); Platelet Count 195 10^3/uL (130-400); RBC 5.06 10^6/uL (4.36-5.78); RDW 13.4 % (11.8-14.1); RDW-SD 43.6 fL; WBC 8.37 10^3/uL (4.4-10.8)
[2023-07-31 16:15] LABS: BUN 27 mg/dL (7-18); CREATININE 1.5 mg/dL (0.70-1.30); Calcium 9.4 mg/dL (8.5-10.1); Chloride 105 mmol/L (98-107); Estimated GFR 52.31 (mL/min/1.73m2); Glucose 80 mg/dL (74-106); Sodium 142 mmol/L (136-145)
== END 2023-07-31 02:01 | disposition home or self-care (01) ==
LOC: LBO 02:00
PROVIDERS: PCP Nurse Practitioner Family; Visit Provider Student in an Organized Health Care Education/Training Program
DX: M17.12 Unilateral primary osteoarthritis, left knee (principal); M25.562 Pain in left knee; Z01.818 Encounter for other preprocedural examination; Z01.812 Encounter for preprocedural laboratory examination
CPT/HCPCS: 36415; 80048; 85027

== ENCOUNTER 2023-08-08 10:10 | Observation (INO) | payer MEDICARE, SELFPAY ==
[2023-08-08] VITALS (26 sets, daily range): BP systolic 104–153; BP diastolic 56–84; PULSE 62–83; RESP 15–25; TEMP 36.2–37.1; O2SAT 91–96; BMI 35.6
[2023-08-08] MEDS: Celecoxib 200 MG CAP 400 MG PO (10:54)
[2023-08-08] MEDS: Gabapentin 300 MG CAP PO ×2 (10:55→22:08)
[2023-08-08] MEDS: Acetaminophen 500 MG TAB 1000 MG PO ×3 (10:55→22:07)
--- NOTE | 2023-08-08 11:07 | W.ANESPRE ---
General Info Date of Service Date Performed: 08/08/23 Height: 5 ft 11 in Weight: 116.1 kg Body Mass Index (BMI): 35.6 Surgical Procedure: Operation Date: 08/08/23 13:10 Proposed Procedure Side Surgeon p Knee Total Arthroplasty, Cementless CR Left Brian Del Rio MD Meds Allergies and Home Medications Allergies Allergy/AdvReac Type Severity Reaction Status Date / Time CLARA Inhibitors AdvReac Unknown Verified 08/08/23 10:40 Home Medication Medication Instructions Recorded amlodipine 10 mg tablet 5 mg PO HS 11/26/18 losartan 100 mg tablet 100 mg PO HS 11/26/18 atenolol 100 mg tablet 100 mg PO HS 09/24/20 fluticasone propionate 50 1 spray intranasal DAILY PRN 09/24/20 mcg/actuation nasal spray,suspension loratadine 10 mg tablet (Claritin) 10 mg PO HS 07/01/21 terazosin 1 mg capsule 1 mg PO QHS 07/01/21 cholecalciferol (vitamin D3) 10 10 mcg PO DAILY 08/30/22 mcg (400 unit) capsule vitamin B complex (B 1 tab PO DAILY 08/30/22 Complex-Vitamin B12 tablet) acetaminophen 500 mg tablet 1,000 mg PO Q8H PRN pain #90 tabs 08/08/23 aspirin 81 mg tablet,delayed 81 mg PO BID 30 days #60 tabs 08/08/23 release celecoxib 200 mg capsule (Celebrex) 200 mg PO BID PRN #60 caps 08/08/23 dexamethasone 4 mg tablet 4 mg PO DAILY #2 tabs 08/08/23 docusate sodium 100 mg capsule 100 mg PO BID #30 caps 08/08/23 (Colace) gabapentin 300 mg capsule 300 mg PO QHS #14 caps 08/08/23 oxycodone 5 mg tablet 5 mg PO Q4H PRN #18 tabs 08/08/23 pantoprazole 40 mg tablet,delayed 40 mg PO DAILY #14 tabs 08/08/23 release Current Visit Medications: Current Medications Generic Name Dose Route Start Last Admin Trade Name Freq PRN Reason Stop Dose Admin Acetaminophen 1,000 mg 08/08/23 06:00 08/08/23 10:55 Acetaminophen 500 Mg Tab PO 09/07/23 05:59 1,000 mg PREOP JESSY Administration Acetaminophen 1,000 mg 08/08/23 14:00 Acetaminophen 500 Mg Tab PO 09/07/23 13:59 TID JESSY Amlodipine Besylate 5 mg 08/08/23 22:00 Amlodipine 10 Mg Tab PO 09/07/23 21:59 HS JESSY Aspirin 81 mg 08/08/23 20:00 Aspirin E.C. 81 Mg Tabec PO 09/07/23 19:59 BID JESSY Celecoxib 400 mg 08/08/23 06:00 08/08/23 10:54 Celecoxib 200 Mg Cap PO 09/07/23 05:59 400 mg PREOP JESSY Administration Celecoxib 200 mg 08/08/23 20:00 Celecoxib 200 Mg Cap PO 09/07/23 19:59 BID JESSY Dexamethasone 4 mg 08/09/23 08:30 Dexamethasone 4 Mg Tab PO 08/10/23 08:31 DAILY JESSY Docusate Sodium 100 mg 08/08/23 10:10 Docusate Sodium 100 Mg Cap PO 09/07/23 10:09 BID PRN PRN Constipation Fluticasone Propionate gm 08/08/23 10:11 Fluticasone Nasal Agar 16 Gm Btl NS 09/07/23 10:10 DAILY PRN Gabapentin 300 mg 08/08/23 06:00 08/08/23 10:55 Gabapentin 300 Mg Cap PO 09/07/23 05:59 300 mg PREOP JESSY Administration Gabapentin 300 mg 08/08/23 22:00 Gabapentin 300 Mg Cap PO 09/07/23 21:59 HS JESSY Hydromorphone HCl 0.5 mg 08/08/23 10:10 Hydromorphone 2 Mg/Ml Syr IVP 09/07/23 10:09 Q2H PRN PRN Tranexamic Acid 1,000 mg/ 60 mls @ 360 mls/hr 08/08/23 06:00 Sodium Chloride IVPB 09/07/23 05:59 PREOP JESSY Ringer's Solution 1,000 mls @ 80 mls/hr 08/08/23 06:00 IV 09/06/23 23:59 INFUSION JESSY Cefazolin Sodium 3,000 mg/ 100 mls @ 200 mls/hr 08/08/23 06:00 Sodium Chloride IVPB 08/08/23 23:59 PREOP JESSY Cefazolin Sodium/Dextrose 1 gm in 50 mls @ 100 mls/hr 08/08/23 12:00 Ancef Duplex IVPB 08/09/23 04:29 Q8H [facility], [facility]–1983 IV Miscellaneous Supplies 1 each 08/08/23 06:00 Iv Access IV 09/06/23 23:59 DIRECTED JESSY Loratadine 10 mg 08/08/23 22:00 Loratidine 10 Mg Tab PO 09/07/23 21:59 HS JESSY Non-Formulary Medication 100 mg 08/08/23 22:00 Atenolol PO 09/07/23 21:59 HS [facility], [facility]1983 Non-Formulary Medication 100 mg 08/08/23 22:00 Losartan PO 09/07/23 21:59 HS JESSY Ondansetron HCl 4 mg 08/08/23 10:10 Ondansetron 4 Mg/2 Ml Vial IVP 09/07/23 10:09 Q6H PRN PRN Nausea Oxycodone HCl 0 mg 08/08/23 10:10 Oxycodone 5 Mg Tab PO 09/07/23 10:09 Q3H PRN PRN Pain Pantoprazole Sodium 40 mg 08/09/23 07:30 Pantoprazole 40 Mg Tabcr PO 09/08/23 07:29 DAILY@0730 FOR[facility] Polyethylene Glycol 17 gm 08/08/23 10:10 Polyethylene Glycol 3350 17 Gm Packet PO 09/07/23 10:09 BID PRN PRN Constipation Sodium Chloride 0 ml 08/08/23 06:00 Normal Saline Flush 10 Ml Syr IV 09/06/23 23:59 PRN PRN Sodium Chloride 0 ml 08/08/23 06:00 Normal Saline 10 Ml Vial IJ 09/06/23 23:59 DIRECTED PRN Sterile Water 0 ml 08/08/23 06:00 Water,Injection,Sterile 10 Ml Vial IJ 09/06/23 23:59 DIRECTED PRN Terazosin HCl 1 mg 08/08/23 11:00 Terazosin 1 Mg Cap PO 09/07/23 10:59 QHS [facility] PFSH Active Problems Active Problems: Problem Status Onset Code Mild intellectual disability F70 Obesity E66.9 Family history of colon cancer Z80.0 Colorectal polyps K63.5 Screening for colon cancer Z12.11 Osteoarthritis of left knee M17.12 History of total right knee replacement 03/22/22 Z96.651 Arthrofibrosis of total knee arthroplasty T84.82XA Serrated adenoma of colon D12.6 Arthritis of right glenohumeral joint M19.011 Medical History Medical History Adenomatous colon polyp Arthritis of left ankle Degenerative joint disease HTN (hypertension) Hyperlipidemia Impingement of left ankle joint Memory deficit Myalgia CANDICE (obstructive sleep apnea) CPAP Osteoarthritis of right knee Post-nasal drip Reading difficulty per sister states he really cant read well-still is able to sign for self sister is always with him Renal impairment Sensorineural hearing loss of both ears Tinnitus, bilateral Tremor Unilateral primary osteoarthritis, left knee Varicose veins of both lower extremities Medical History Comments:: Per pt. sister during his previous knee surgery he could not stabilize his temperature. Per pt. sister states pt father would hallucinate, and older brother would get sick Surgical History Surgical History History of colonoscopy 2008, 2018 (ssa) 2021 History of inguinal hernia as ~2 yo Hx of total knee arthroplasty right Tobacco Smoking/Tobacco Use Status: Never Alcohol Alcohol Intake: never Substance Use Substance use: Never Substance use type: does not use Vital Signs and Lab Results Vital Signs Most Recent Vital Signs in EMR: Most Recent Vital Signs Temp Pulse Resp BP Pulse Ox 37.1 C 70 18 144/69 H 96 08/08/23 10:05 08/08/23 10:05 08/08/23 10:05 08/08/23 10:05 08/08/23 10:05 Lab Results Blood Type / Crossmatch: No Data to Display Complete Blood Count: White Blood Count 8.37 10^3/uL (4.4-10.8) 07/31/23 14:45 Red Blood Count 5.06 10^6/uL (4.36-5.78) 07/31/23 14:45 Hemoglobin 15.4 g/dL (13.5-17.5) 07/31/23 14:45 Hematocrit 44.7 % (40.0-50.0) 07/31/23 14:45 Platelet Count 195 10^3/uL (130-400) 07/31/23 14:45 Complete Metabolic Panel: Sodium 142 mmol/L (136-145) 07/31/23 14:45 Potassium 4.0 mmol/L (3.5-5.1) 07/31/23 14:45 Chloride 105 mmol/L (98-107) 07/31/23 14:45 Carbon Dioxide 27.0 mmol/L (21.0-32.0) 07/31/23 14:45 BUN 27 mg/dL (7-18) H 07/31/23 14:45 Creatinine 1.5 mg/dL (0.70-1.30) H 07/31/23 14:45 Est GFR (CKD-EPI 2020) 52.31 (mL/min/1.73m2) 07/31/23 14:45 Calcium 9.4 mg/dL (8.5-10.1) 07/31/23 14:45 Albumin 4.0 g/dL (3.4-5.0) 07/25/23 16:05 Glucose 80 mg/dL (74-106) 07/31/23 14:45 Liver Function Panel: Alanine Aminotransferase (ALT/SGPT) 37 U/L (16-63) 07/25/23 16:05 Aspartate Amino Transf (AST/SGOT) 20 U/L (15-37) 07/25/23 16:05 Coagulation Panel: No Data to Display Cardiac Panel: No Data to Display Arterial Blood Gas: No Data to Display Venous Blood Gas: No Data to Display Pancreas Panel: No Data to Display Thyroid Panel: No Data to Display Infectious Disease: No Data to Display Blood Cultures: No Data to Display Toxicology Panel: No Data to Display Anesthesia Assessment and Plan Anesthesia History Personal History: PONV, Delayed Emergence and Other Family History: Other Exercise Tolerance Exercise Tolerance: Metabolic Equivalents>4 Pertinent Negatives Pertinent Negatives: No Symptoms of GERD, No Major Cardiovascular Symptoms or Complaints, No Major Pulmonary Symptoms or Complaints and No History of CVA/TIA Cardiac & Pulmonary Exam Cardiac Exam: Normal S1/S2 Heart Sounds Pulmonary Exam: Clear Bilateral Breath Sounds Implantable Cardiac Device Does patient have a Pacemaker or an ICD?: No Airway Exam Known Difficult Airway: No Mallampati Class: 2 Mouth Opening: Normal (> 3cm) Thyromental Distance: Greater than 3 cm Neck Range of Motion: Full ROM Neck Circumference: Normal Teeth Condition: Normal Dentition ASA Classification ASA Score: ASA 2 Emergency Case?: No NPO Status NPO Status: NPO Clears >2 hours, Solids >8 hours Anesthesia Plan Resuscitation Status: Full Code Anesthesia Technique: Spinal Anesthesia Airway Planned: Natural Airway Pain Management: Surgeon and patient request nerve block Monitors Used: Standard Monitors
[2023-08-08] MEDS: Lactated Ringers 1,000 ML 80 ML IV ×2 (11:15→15:21)
[2023-08-08] MEDS: ceFAZolin 3,000 MG in Normal Saline 100 ML 200 MG IVPB (12:16)
--- NOTE | 2023-08-08 12:35 | W.ANESNERVE ---
Nerve Block Single Injection Procedure Date and Time Date Performed: 08/08/23 Procedure Start: 11:40 Location Where Procedure Performed Procedure Location: Day Surgery Unit Reason Performed: Postoperative Analgesia Requesting Provider: Brian Del Rio Timeout Performed Timeout Performed: Yes Monitoring Used ECG, Blood Pressure, SpO2 and ETCO2 Sterility Sterility: Hand Hygiene, Surgical Cap, Surgical Mask, Sterile Gloves and Chlorhexidine Sedation Given During Procedure Sedation Given (Indicate Dose Given): Versed IV Dose:: 2 mg Patient Mental Status Patient Mental Status: Sedate with meaningful communication Nerve Block 1st Nerve Block: Laterality: Left Block Type: Adductor Canal Ultrasound Image Saved?: Yes Needle / Catheter Used: 100mm SonoPlex II Local Anesthetic Bolus (Indicate Dose Given): Lidocaine used for local infiltration of skin, Injected in 3-5ml increments after negative blood aspiration and Bupivacaine 0.25% Dose:: 15 ml Additives (Indicate Dose Given): Normal Saline Ultrasound: Sterile probe cover and gel used Nerve Stimulator: Not Used Paresthesia: None Procedure Tolerated: No Complications and Patient tolerated well Procedure Outcome: Successful Performed By: Edgar Mir
--- NOTE | 2023-08-08 14:19 | W.ANESPOSTOP ---
Postoperative Evaluation Date, Time and Location Date Performed: 08/08/23 Time Performed: 14:19 Patient Location: Day Surgery Unit Vital Signs Most Recent Imported Vital Signs: Most Recent Vital Signs Temp Pulse Resp BP Pulse Ox 36.6 C 79 24 111/62 93 08/08/23 14:08 08/08/23 14:08 08/08/23 14:08 08/08/23 14:08 08/08/23 14:08 Pain Score Most Recent Pain Score: Most Recent Pain Score Pain Level 0 08/08/23 11:31 Assessment Mental Status: Arousable with meaningful communication Airway and Respiratory Function: Abnormal Respiratory exam (See explanation) (Patient is in PACU and on 3lpm NC, appropriate for discharge from PACU to floor. ) Cardiovascular Function: Hemodynamically Stable Hydration Status: Adequately Hydrated Nausea & Vomiting: No Nausea or Vomiting Pain: Pt. Denies Any Pain Peripheral Nerve Block: Regional nerve block not resolved at time of post operative discharge
[2023-08-08] MEDS: Normal Saline 10 ML VIAL IJ (14:37)
[2023-08-08] MEDS: HYDROmorphone 2 MG/ML SYR IVP ×2 (14:37→14:47)
--- NOTE | 2023-08-08 15:22 | ROE_ITS ---
Date of service: 08/08/23 Time of Service: 13:40 Operative Note Operative Note DATE OF PROCEDURE: 08/08/23 PRE-OP DIAGNOSIS: Left Knee Osteoarthritis POST-OP DIAGNOSIS: same PROCEDURE: Left Total Knee Replacement SURGEON: Brian Del Rio CALCIMINER: Pia Paez ANESTHESIA TYPE: Spinal Refer to Anesthesia Record ESTIMATED BLOOD LOSS: 250 PATHOLOGY: none sent TOURNIQUET TIME: 0 COMPLICATIONS: None Patient was transported to: PACU Patient's condition: stable Implants: 1. Depuy Attune Cementless Cruciate Retaining Femoral Component, Size 8 2. Depuy Attune Cementless Fixed Bearing Tibial Component, Size 7 3. Depuy Attune 8x8 CR/FB Poly 4. Depuy Attune Patellar Component, Size 41 Indications: I have seen Mamadou in clinic for symptoms of knee arthritis, confirmed with radiographic findings. He has exhausted nonoperative methods and was having significant limitations in daily function and desired better function and less pain. I discussed the technical details of a knee replacement. I explained the risks of the procedure to include, but not limited to, bleeding, infection, pain, stiffness, fracture, damage to nerves and vessels, damage to muscles and tendons, loosening, need for repeat procedure, blood clot and cardiopulmonary demise. Despite these risks, Mamadou elected to proceed. Findings: There was significant signs of arthritis throughout the knee involving the medial compartment primarily. Procedure Description: Mamadou was greeted in the preoperative holding area where the correct side was identified and marked. The consent was reviewed with the patient and signed. The history and physical was updated. All questions were answered. Preoperative medications were administered: Acetaminophen 1000mg, Celebrex 400mg, and Gabapentin 300mg. An adductor canal block was then administered by the anesthesia team in the PACU. He was taken back to the operating room. A spinal anesthestic was then administered. The patient was placed into the supine position on the operating room table. A nonsterile tourniquet was placed high onto the leg but only used for cementing. Posts were placed for positioning during the procedure. All bony prominences were well padded. Prophylactic antibiotics in the form of Cefazolin were administered. 1g of Tranxemic Acid was given intravenously within 30 minutes of incision. The left leg was then prepped with Chloraprep and draped in a standard fashion with impervious stockinette. A second prep with Chloraprep was performed prior to application of Iodine impregnated skin protection. A timeout to confirm correct identity, side and site, procedure, allergies, anesthesia, and medical concerns was performed. With the knee in some flexion, a midline incision was made overlying the knee. Full thickness skin flaps were raised once the extensor mechanism was encountered. These were raised medially and laterally. Any bleeding was controlled with electrocautery. Once the extensor mechanism was fully exposed, a medial parapatellar arthrotomy was performed in a flexed position. All bleeding from the arthrotomy and the geniculate arteries was coagulated. A medial subperiosteal peel was performed with electrocautery to the midcoronal plane. Due to the significant varus deformity the entire medial tibial plateau was exposed. The fat pad was removed while keeping the patellar tendon protected. The anterior distal femur synovium was removed for later visualization. The ACL and PCL were resected and the anterior horn of the lateral meniscus was transected. The knee was then flexed with the patella everted. Large osteophytes from the tibia were removed. Large osteophytes from the femur were removed. COMMENTS. Using a step drill, and based on preoperative templating, the femoral canal was entered. This was done with a step drill without any difficulty. The intramedullary distal femoral cut guide was inserted, set to a 5 degree valgus cut and 9mm cut thickness. The distal femoral cut guide was then held in position and pinned. With the soft tissues protected, the distal cut was performed. This was passed over a few times to ensure a planar cut. I then turned attention to the tibia. The extramedullary guide was placed onto the leg. The distal aspect was slid medial to adjust for position of center of ankle and stay in line with shaft of the tibia. Approximately 3-5 degrees of posterior slope was kept in the proximal cutting guide. The center of the guide was aligned with the PCL. The stylus was used to assess cut thickness. The medial side, most involved side, was set for a 3mm cut. This was then held in position and pinned into place with 2 additional pins and a cross pin for stability. The medial and lateral collateral ligaments were protected and the cut was performed. With this completed, it was assessed and noted to be of appropriate dimensions. The guide was removed. A spacer block was inserted and the knee was brought into extension. The 8mm spacer block provided full extension, without hyperextension and with stability of both the medial and lateral collateral ligaments was assessed. The pins from the femur and the tibia were then removed. The distal femur was then sized. The anterior stylus was placed onto the lateral ridge of the anterior femur. This indicated a size 8 femur. The electronics utility worker al rotation of the guide was adjusted to 3 degrees to match the epicondylar axis, perpendicular to Mohsen?s line. The 4-in-1 cutting guide was the placed. The posterior medial femur cut was evaluated and appeared of good thickness. The spacer block was inserted underneath the cutting guide and stability was confirmed in 90 degrees of flexion. An ethan wing was used to confirm appropriate position of the anterior cut to avoid notching. This cutting guide was ensured to be flush on the cut surface and then pinned into place with headed pins. While protecting the soft tissues, quad tendon, and collateral ligaments, the anterior and posterior cuts were performed with a saw. The central two pins were removed and the posterior and anterior chamfers were cut next. The notch-cutting guide was placed. This was pinned to lateralize the femoral component as much as possible while keeping it flush on the cut surface. This was then pinned into position. A reciprocating saw was used to make the notch cut. A rasp smoothed the cut surfaces. The medial and lateral menisci were removed. A trial femoral component was then inserted, impacted down to the cut surfaces, and the lug holes were drilled. A provisional trial tibial component was placed and the knee was brought through range of motion. There was noted to be excellent extension and flexion. There was no significant instability. The patella was tracking without thumbs. A size 8mm polyethylene component provided the best range of motion and stability with less than 2mm gapping with medial and lateral stress and full extension without significant hyperextension. The tibial cut surface was fully exposed. The tibia was then sized as a 7. The tibia had been previously marked during trialing to correspond to the center of the tibial component to help with rotation. The trial was aligned to this gracy, approximately rotated to the medial 1/3rd of the tibial tubercle. The trial was pinned into place. The tibia was prepared with a reamer and a keel punch and lug holes. The knee was then brought into extension and the patella was measured as 30mm. Using the patellar clamp and cut guide, this was resected to a flat surface with at least 13mm of thickness remaining. The size 41 patella fit the best. This was oriented and then clamped into position. The lugs were drilled. The trial components were removed. The final components were opened on the back table. The periosteal and capsular tissues, especially posteriorly, around the knee were then systematically injected with a periarticular cocktail consisting of 246mg of Ropivacaine, 0.5mg of Epinephrine, 0.08mg of Clonidine, and 30mg of Ketorolac, diluted to 100cc. On the back table, with the implants opened, the cement was mixed. One batch of high viscosity cement was prepared with vacuum assistance. After the cement was ready a small amount was placed on the cut surface of the patella and the patellar button was clamped into position and held. While the cement was hardening, the cementless knee components were placed. Starting with the tibial component, the tibia was subluxed anteriorly and the lug holes of the component were lined up. The tibia was then impacted with an impactor and mallet until the tibial component was in contact with the tibia. The final polyethylene component was inserted. Then, the femoral component was inserted. The lug holes were aligned and the component was impacted into position. The knee was irrigated with Surgiphor Betadine solution. This was allowed to sit in the knee for 3 minutes and then it was irrigated out with saline. After the cement had finally cured, approximately 15min, the clamp was removed from the patella and the knee was taken through range of motion. The patella was tracking with a no-thumbs technique. The capsule was then reapproximated with a No. 1 Vicryl at multiple locations. The capsule was finally closed with a No. 2 Stratafix, barbed suture. The second dosing of 1g TXA was started. Deep tissues were then reapproximated with 0 Vicryl and 2-0 Vicryl. The skin was closed with a running 3-0 Monocryl in a subcuticular fashion. This was reinforced with skin glue. A Mepilex silver dressing was applied along with a [id number] CLARA wrap. A CryoCuff was applied. Mamadou was transferred to the hospital bed without difficulty an suffering no apparent complication. Mamadou has a good prognosis. Physical therapy will start today and without restrictions, weight-bearing as tolerated. Aspirin 81mg BID will be used for DVT prophylaxis.
[2023-08-08] MEDS: ceFAZolin 1 GM/50 ML BAG IVPB (16:02)
[2023-08-08] MEDS: HYDROmorphone 2 MG/ML SYR 0.5 MG IVP (16:03)
[2023-08-08] MEDS: Normal Saline Flush 10 ML SYR IV ×2 (16:04→20:07)
--- NOTE | 2023-08-08 16:49 | IN_ITS ---
Date of service: 08/08/23 Time of Service: 16:49 PT Notes Visit Reasons: Left knee DJD Physical Therapy Inpatient Initial Evaluation Date: 08/08/2023 Referring Doctor: AARON Guy PT Orders: PT CONSULT: S/P Ortho Surgery Precautions: Fall. Standard. WBAT on the L LE with AD. Patient Profile/Admitting Diagnosis: Mamadou is a 62-year-old male patient with degenerative joint disease of the L knee and is S/P L total knee arthroplasty on postoperative day 0. PMHX: Medical History?(Updated 07/31/23 @ 14:11 by Fela Salmon) Adenomatous colon polyp Arthritis of left ankle Degenerative joint disease HTN (hypertension) Hyperlipidemia Impingement of left ankle joint Memory deficit Myalgia CANDICE (obstructive sleep apnea) CPAP Osteoarthritis of right knee Post-nasal drip Renal impairment Sensorineural hearing loss of both ears Tinnitus, bilateral Tremor Unilateral primary osteoarthritis, left knee Varicose veins of both lower extremities Surgical History?(Updated 09/15/22 @ 09:03 by Jennifer Rosenberg RN) History of colonoscopy 2018 (ssa) 2021 History of inguinal hernia as ~2 yo Hx of total knee arthroplasty right Social History/Home Situation: Mamadou lives with his sister in a private home with 2 steps to enter with rails on both sides.? His bedroom is on the basement with 3 steps to enter with bilateral rails.? Sister does not work and has been doing grocery shopping and meal preparation/cooking for patient.? Patient does not drive. Equipment Owned/DME: [facility] Subjective: Complained of considerable nausea upon sitting up at edge of bed, each getting worse until the 4th try. Objective: General Observation: Supine in bed.? Cryocuff to left knee.? CLARA wraps to left LE.? TEDS on right leg. Mental Status: Alert and oriented as to person, place, time, and purpose. Able to pay attention, focus, and respond appropriately.? Speech slightly garbled,? hard to understand sometimes. Pain: Some pain in knee after trying to sit up Vital Signs: Oxygen saturation 94% on supplementation via NC. BP 118/80s mmHg. HR 81 bpm. ROM: Right Lower Extremity: Hip flexion WFL. Hip abduction WFL. Knee flexion WFL.? Knee extension WFL. Ankle dorsiflexion WFL. Ankle plantarflexion WFL. Left Lower Extremity: Hip flexion WFL. Hip abduction WFL. Knee flexion about 20 degrees to 90 degrees ACTIVELY while at edge of bed. Ankle dorsiflexion WFL. Ankle plantarflexion WFL. Strength: Right Lower Extremity: Hip flexors 5/5. Hip abductors 5/5. Knee flexors 4/5. Knee extensors 4/5. Ankle dorsiflexors 5/5. Ankle plantarflexors 5/5. Left Lower Extremity: Hip flexors 4/5. Hip abductors 4/5. Knee flexors 3-/5. Knee extensors 3-/5. Ankle dorsiflexors 4/5. Ankle plantarflexors 4/5. Bed Mobility/Transfers: Supine to sit stand by assist Sit to stand unable due to worsening nausea Stand to sit unable due to worsening nausea Bed to reclining chair deferred due to worsening nausea Gait: Deferred due to worsening nausea. Will be assessed tomorrow. Stairs: Will be assessed tomorrow Balance: Static Sitting: Fair Dynamic Sitting: Fair Static Standing: Unable Dynamic Standing: Unable Special Tests: Mobility Limitations Standardized Measure [facility] 6 clicks Basic Mobility Inpatient Short Form: Raw Score: 9? CMS Score: 81% deficit? ? ? Informed Consent/Education:? Patient was instructed in purpose of PT consult and plan of care. Agreeable to proceed with established PT POC to achieve personal goals. ASSESSMENT: Mobility assessment needs to be completed tomorrow as patient was having heightening nausea and queasiness along with worsening pallor. Patient and Nurse Queenie were agreeable to holding off on out of bed activities until tomorrow morning. Patient presents with clinical signs and symptoms consistent with current/admitting diagnoses that have resulted to mobility limitations, gait instability, generalized weakness, and overall ADL decline as demonstrated by the following impairment level findings: 1.? Decreased strength to left knee? major muscle groups 2.? Impaired sitting/standing balance 3.? Impaired activity tolerance 4.? Limitation of joint range of motion in left knee 5. Worsening nausea and pallor in sitting even after 4 attempts Impairments are contributing to the following functional limitations: 1.? Inability to complete ambulation assessment due to worsening nausea 2.? Increased completion time for mobility ADL performance Patient is assessed [place] a 41285 moderate 61complexity based on the following: History: 62-year-old?male with past medical history as indicated above Examination: Demonstrable impairment in strength, balance, and mobility level with underlying impairments and functional limitations as exhibited above as well as deficit score of male 81% utilizing the [facility] Mobility Inpatient Short Form Presentation: Evolving Decision Makin moderate complexity Goals: Goals X1 week 1. Supine-Sit independent 2. Sit-Supine independent 3. Sit-Stand independent 4. Stand-Sit independent with FWW 5. Bed-Chair independent with FWW 6. Chair-Bed independent with FWW 7. Independent gait on level surface with use of FWW for at least 300 feet without report of pain nor dyspnea 8. Independent stair negotiation while holding onto B rails for at least 5 steps without report of pain nor dyspnea 9. Independent with home exercise program 10. Good static and dynamic standing balance/tolerance Plan of Care/Treatment Plan: 1-2x/day, 7 days/week x 1 week. Plan of care has been reviewed with the BENEFITS REPRESENTATIVE providing the service under Physical Therapy direction. Initiate Physical Therapy intervention for pain management as needed, strengthening, bed mobility, transfers, gait, stairs, balance training, and use of assistive device. DISCHARGE RECOMMENDATIONS: [] ? Home with no services [] [] ? Home with services [specify] [X] ? Home with outpatient PT.? Home when medically cleared by orthopedic surgeon.? Outpatient PT services to return to independent ADL performance and community ambulation without an assistive device. [] ? SNF for continued rehabilitation [] [] ? Senior Living Care [] [] ? SNF versus LTC based on ability to participate and progress [] TREATMENT CODE/TIME: 57913 x 29 minutes for 1 unit beginning at 16:49 PM. Thank you for the opportunity to participate in the care of this patient. Sirisha Hobson PT, DPT, CLT [facility] [place], [place]
[2023-08-08] MEDS: Ondansetron 4 MG/2 ML VIAL IVP (17:31)
[2023-08-08] MEDS: diphenhydrAMINE 50 MG/ML VIAL 25 MG IVP (20:06)
[2023-08-08] MEDS: Atenolol 50 MG TAB 100 MG PO (22:08)
[2023-08-08] MEDS: amLODIPine 5 MG TAB PO (22:08)
[2023-08-08] MEDS: Celecoxib 200 MG CAP PO (22:08)
[2023-08-08] MEDS: Loratidine 10 MG TAB PO (22:08)
[2023-08-08] MEDS: Aspirin E.C. 81 MG TABEC PO (22:08)
[2023-08-09] VITALS (7 sets, daily range): BP systolic 103–150; BP diastolic 62–75; PULSE 63–77; RESP 16–20; TEMP 36.1–37.3; O2SAT 92–95
[2023-08-09] MEDS: Losartan 50 MG TAB 100 MG PO ×2 (00:07→20:59)
[2023-08-09] MEDS: ceFAZolin 1 GM/50 ML BAG IVPB ×2 (00:15→08:43)
[2023-08-09] MEDS: oxyCODONE 5 MG TAB PO ×3 (06:14→23:37)
[2023-08-09] MEDS: Celecoxib 200 MG CAP PO ×2 (08:47→20:59)
[2023-08-09] MEDS: Acetaminophen 500 MG TAB 1000 MG PO ×3 (08:47→20:59)
[2023-08-09] MEDS: Pantoprazole 40 MG TABCR PO (08:47)
[2023-08-09] MEDS: Dexamethasone 4 MG TAB PO (08:48)
[2023-08-09] MEDS: Aspirin E.C. 81 MG TABEC PO ×2 (08:48→20:59)
[2023-08-09] MEDS: HYDROmorphone 2 MG/ML SYR 0.5 MG IVP (10:02)
--- NOTE | 2023-08-09 10:16 | PTTR_ITS ---
Date of service: 08/09/23 Time of Service: 09:10 PT Notes Visit Reasons: Left knee DJD Inpatient Physical Therapy Treatment Note [facility] Date: 08/09/23 PRECAUTIONS: Fall, standard, activity as tolerated. WBAT LLE with AD SUBJECTIVE: Patient reports being in a lot of pain, can't feel the cold from the cryo cuff. Cryo cuff does not appear to be circulating water despite being plugged in. Lifted cryo cuff onto table level with patient's knee, cryo cuff immediately fills up with cold and the patient reports he can feel it now. Patient asks when he can have more pain medication. YAMILE Cedillo notified. Afternoon: Cryo cuff not working, replaced. OBJECTIVE: Patient supine in bed, agreeable to therapy. Afternoon: Patient supine in bed, agreeable to therapy. Immediately asks when he can have more pain medicine. YAMILE Leigh present with Tylenol. ? PAIN: significant. VITALS: monitored by nursing staff. ? BED MOBILITY/TRANSFERS? Rolling L/R: modified independent with side rails Supine-sit: patient states that he needs help, proceeds to be modified independ ent with slightly elevated HOB and side rails. ?Sit-supine: independent? Sit-stand: CGA? Stand-sit: CGA ? Bed-Chair: CGA ? Chair-bed: CGA Gait Training ([id number]): Direct one-on-one instruction and skilled instruction in: [] employing an assistive device [] modified weight-bearing status [x] movement sequencing [x] turning and movement with proper form [x] Provided verbal cues for equipment management and technique [] Provided instruction in gait pattern [] Patient education regarding pacing and breathing techniques to maximize activity tolerance? GAIT? Assistive Device: FWW? Weight bearing: WBAT LLE with AD Assist: CGA, IV pole management? Distance:? mornin feet Afternoon: 250 feet ? Deviation: reduced ragini, antalgic gait pattern, reduced push off from LLE. Afternoon: Patient really runs out of steam at 180 feet, exaggerated foot slap on non-operative leg, lurching antalgic gait pattern. ? ASSESSMENT:? Patient tolerates therapy well, no complaint of increased pain with ambulation. Speculates that he will stay at least one more day in the hospital due to pain. PLAN: Continue global strengthening and increase ROM per plan of care until patient is medically cleared for discharge. TREATMENT CODE/TIME: 8 minutes beginning at 9:10 and 16 minutes beginning at 9:38 for a total of 24 morning minutes, 10 minutes beginning at 13:30 and 18 minutes beginning at 14:44 for a grand total of 52 minutes for the day.
--- NOTE | 2023-08-09 10:23 | RESPIRATORY ---
Rt check out machine on 08/08/23 and its in good working condition. Patient uses an AirSense 10 Auto-Set min 9/max 16 on RA with an AirFit F20 FFM mask size Small and his DME is [facility].
--- NOTE | 2023-08-09 14:17 | W.PM.PROGNOT ---
Date of Service Date of service: 08/09/23 Time of Service: 13:10 Assessment and Plan Assessment and plan (1) Osteoarthritis of left knee: Status: Chronic Assessment and plan: Mamadou is a 62-year-old status post left knee replacement. He did have some issues with nausea which that seems to be improving. He still feels slightly unwell and not ready to go home and therefore I do think we should watch him just given history after the previous knee. I encouraged him to work with nursing with physical therapy to ambulate. I will reevaluate in the morning but likely discharge home tomorrow. Subjective Subjective Interval history since last seen: Mamadou had nausea last night and overall felt poorly. This is similar to his previous surgery and admission. However, he does feel that things improved this morning he has been able to tolerate a regular diet. He did work with physical therapy. He was able to ambulate some but he still reports not feeling confident about his legs and still feeling somewhat uneasy about trying to go home. He denies any current nausea. He has no chest pain or shortness of breath. He has had a nonfunctioning Cryo/Cuff and did ask for a new one. Exam Narrative Exam Narrative: Resting in the hospital bed. No acute distress. Alert and x3. Left lower extremity shows a clean dry and intact dressing. Serafin wrap is removed. He is able straight leg raise with a mild lag. He endorses flexion about 90 degrees. No significant ecchymosis or swelling. Objective Last Vital Signs Temp 37.3 C 08/09/23 11:50 Pulse 77 08/09/23 11:50 Resp 20 08/09/23 11:50 BP 150/73 H 08/09/23 11:50 Pulse Ox 93 08/09/23 11:50 Time Spent with Patient Time Spent with Patient: <25 minutes Time was spent: preparing to see the patient(eg.review tests), counseling the patient and care coordination
--- NOTE | 2023-08-09 15:54 | PDOC.CMIN ---
Date of service: 08/09/23 Time of Service: 15:54 Care Management Initial Assmt Initial Assessment REASON FOR HOSPITALIZATION:: Left Knee DJD PREVIOUS FUNCTIONAL STATUS/SOCIAL/FAMILY SUPPORTS:: Resides in [place], sister Chantal as primary support person. CURRENT FUNCTIONAL STATUS:: Nauseous; reports not feeling ready for discharge. Per MD he will remain at [facility] overnight with discharge anticipated tomorrow. ADVANCE DIRECTIVES:: None on file Has patient been provided with info about the portal/API?: Yes Did the patient sign up for the portal?: Yes CODE STATUS:: Full Code INSURANCE COVERAGE / FINANCIAL ISSUES:: BC/BS [place] PRIMARY CARE PHYSICIAN:: Vaibhav Us POTENTIAL DISCHARGE NEEDS:: PT consult, follow up appointments. PATIENT/FAMILY EDUCATION NEEDS:: Review discharge instructions, discuss Ask Me Three. ANTICIPATED BARRIERS TO DISCHARGE:: None identified TRANSPORTATION:: Via private vehicle with his sister PLAN:: Mamadou will return home when ready per MD. He will follow up with Ortho, his PCP and plan of care as prescribed. He will transport via private vehicle with his sister. PFSH All Active Problems Mild intellectual disability (Chronic) Obesity (Chronic) Family history of colon cancer (Chronic) Colorectal polyps (Acute) Screening for colon cancer (Acute) Osteoarthritis of left knee (Chronic) History of total right knee replacement (Acute 03/22/22) Arthrofibrosis of total knee arthroplasty (Acute) Serrated adenoma of colon (Acute) Arthritis of right glenohumeral joint (Acute) Medical History Adenomatous colon polyp Arthritis of left ankle Degenerative joint disease HTN (hypertension) Hyperlipidemia Impingement of left ankle joint Memory deficit Myalgia CANDICE (obstructive sleep apnea) CPAP Osteoarthritis of right knee Post-nasal drip Reading difficulty per sister states he really cant read well-still is able to sign for self sister is always with him Renal impairment Sensorineural hearing loss of both ears Tinnitus, bilateral Tremor Unilateral primary osteoarthritis, left knee Varicose veins of both lower extremities Surgical History History of colonoscopy 2018 (ssa) 2021 History of inguinal hernia as ~2 yo Hx of total knee arthroplasty right Family History Other Diabetes Heart disease Hyperlipidemia Hypertension Social History Smoking/Tobacco Use Status: Never Smoking risk assessment performed?: Yes Alcohol Intake: never Drug use: Never Substance use type: does not use Housing: house Current gender identity: male Additional Social history: Unable to assess privately. Lives with sister.
[2023-08-09] MEDS: Gabapentin 300 MG CAP PO (20:59)
[2023-08-09] MEDS: Loratidine 10 MG TAB PO (20:59)
[2023-08-09] MEDS: Atenolol 50 MG TAB 100 MG PO (20:59)
[2023-08-09] MEDS: amLODIPine 5 MG TAB PO (21:00)
[2023-08-10 03:06] VITALS: BP 127/56; PULSE 58; RESP 16; TEMP 36.1; O2SAT 94
[2023-08-10 07:10] VITALS: BP 117/63; PULSE 52; RESP 16; TEMP 35.1; O2SAT 96
[2023-08-10] MEDS: Dexamethasone 4 MG TAB PO (07:34)
[2023-08-10] MEDS: Acetaminophen 500 MG TAB 1000 MG PO (07:35)
[2023-08-10] MEDS: Celecoxib 200 MG CAP PO (07:35)
[2023-08-10] MEDS: Aspirin E.C. 81 MG TABEC PO (07:35)
[2023-08-10] MEDS: Pantoprazole 40 MG TABCR PO (07:35)
[2023-08-10] MEDS: Normal Saline Flush 10 ML SYR IV (07:36)
--- NOTE | 2023-08-10 08:45 | W.PM.DS.N ---
Date of service: 08/10/23 Time of Service: 07:42 DS: Diagnosis Discharge Diagnosis (1) Osteoarthritis of left knee: Status: Chronic Discharge Plan Disposition Patient Disposition: Home Condition: Good Discharge Details Reason For Visit: Left knee DJD Admit Date/Time: 08/08/23 10:10 Admit Provider: Brian Del Rio Attending Provider: Brian Del Rio Primary Care Provider: Vaibhav Us Hospital Course Hospital Course: Patient was admitted to the medical/surgical floor following the procedure. The surgery was tolerated well without any notable medical, surgical, or anesthetic complications except for some nausea and vomiting initially after surgery which resolved by the morning of postop day #1. Mobilization began postoperatively. He was voiding spontaneously. Vitals were stable. Physical therapy worked with the patient and was cleared for discharge home. No acute medical issues. Pain was controlled on oral regimen. Home Meds and New Rx's Prescriptions: New acetaminophen 500 mg tablet 1,000 mg PO Q8H PRN Qty: 90 0RF Rx Instructions: Take two tablets up to every 8 hours as needed for pain aspirin 81 mg tablet,delayed release (DR/EC) 81 mg PO BID 30 Days Qty: 60 0RF celecoxib [Celebrex] 200 mg capsule 200 mg PO BID PRNQty: 60 0RF Rx Instructions: Take one tablet twice daily for pain and inflammation docusate sodium [Colace] 100 mg capsule 100 mg PO BID Qty: 30 0RF pantoprazole 40 mg tablet,delayed release (DR/EC) 40 mg PO DAILY Qty: 14 0RF dexamethasone 4 mg tablet 4 mg PO DAILY Qty: 2 0RF Rx Instructions: Take one tablet once daily for two days gabapentin 300 mg capsule 300 mg PO QHS Qty: 14 0RF Rx Instructions: Take one tablet at bedtime oxycodone 5 mg tablet 5 mg PO Q4H PRNQty: 18 0RF Rx Instructions: Take one tablet up to every 4 hours as needed for severe postoperative pain Continued amlodipine 10 mg tablet 5 mg PO HS losartan 100 mg tablet 100 mg PO HS vitamin B complex [B Complex-Vitamin B12] Tablet 1 tab PO DAILY cholecalciferol (vitamin D3) 10 mcg (400 unit) capsule 10 mcg PO DAILY atenolol 100 mg tablet 100 mg PO HS fluticasone propionate 50 mcg/actuation spray,suspension 1 spray intranasal DAILY PRN Rx Instructions: administer into each nostril loratadine [Claritin] 10 mg tablet 10 mg PO HS terazosin 1 mg capsule 1 mg PO QHS Discontinued acetaminophen 500 mg capsule 1,000 mg PO Q8H PRN PRNQty: 30 0RF Discharge Instructions Additional Instructions: Total Knee Discharge Instructions Activity: The most important activity is to walk and to work on gentle motion (both flexion and extension). You should try to take short walks a few times a day. It is important that when resting you work on keeping the knee straight. Avoid putting a pillow behind the knee as this will encourage flexion. Work on range of motion exercises as provided by Physical Therapy. - Start outpatient physical therapy within 2 weeks. - You should wear the VANNESSA hose on both legs for 2 weeks. You may remove these at night. You may also use any compression sock in place of the VANNESSA hose. - Utilize [employer] to review exercises, see videos on exercises and obtain basic information pertaining to your surgery and your recovery. Dressing: Remove the Serafin wrap by 2 days after your surgery and put on the VANNESSA stocking given to you from the hospital. Keep the surgical dressing (underneath the SERAFIN wrap) in place for at least one week. After the first week it may be removed and replaced with light gauze and tape or nothing. The wound and dressing may get wet after 3 days but avoid soaking the dressing or otherwise it will need to be changed. Many people prefer covering the dressing with cling wrap (saran wrap) to minimize it from getting soaked. If it gets wet, just pat dry. If it starts to peel off then it will need to be changed. Medications: - You should take Tylenol and anti-inflammatory Celebrex as your primary pain control medications. If the Celebrex is too expensive or not covered, please call the office for another alternative (Advil/Ibuprofen or Naproxen/Aleve) - You have been prescribed a stronger pain medication Oxycodone for breakthrough pain, take as needed as prescribed. - You have also been prescribed a stomach acid reduction agent Pantoprozole to help reduce stomach acid and reflux. - You have been prescribed Gabapentin to take at night for restlessness and nerve pain. - You will be taking Aspirin 81mg twice a day for DVT prevention unless instructed otherwise. - You have also been prescribed Decadron to take to control post-operative nausea and pain. You will start this tomorrow. - If you have constipation you should take Colace (which has been prescribed) or Miralax (which is available [id number]). It takes most people 3-4 days to have a bowel movement. Follow-up: 2 weeks If you have any acute concerns or questions, please do not hesitate to contact the office at [phone]. You may contact Dr. Del Rio with any questions after hours through the hospital at [phone] or on his cell phone at [phone]. Referrals: Brian Del Rio MD [ [facility] STAFF PHYSICIAN] - Activity:: Activity as Tolerated Equipment/Supplies:: Walker Diet:: As Tolerated Discharge Orders Discharge Orders: Discharge Order (Routine); Ordered 08/10/23 Ordered By: Brian Del Rio DS: Summary Time Spent with Patient providing and/or coordinating discharge services: Less than 30 minutes Status at Discharge Functional status at discharge: uses cane/walker Overall status at discharge: patient is progressing back to baseline Mental Status: mental status grossly normal Speech and Movement: speech and movement normal Mood: congruent mood Affect: normal affect Exam Narrative Exam Narrative: Mamadou is resting in the hospital bed. No acute distress. Alert and orient x3. Evaluation of the left lower extremity shows a clean dry and intact dressing. He is able to straight leg raise. Active range of motion is approximate 10 to 85 degrees with a lag of 10 degrees. No significant swelling or ecchymosis. Sensation intact light touch over the deep and superficial peroneal nerve and tibial nerve. Toes are warm and well-perfused. Psych Mental Status: mental status grossly normal Speech and Movement: speech and movement normal Mood: congruent mood Affect: normal affect PFSH All Active Problems Mild intellectual disability (Chronic) Obesity (Chronic) Family history of colon cancer (Chronic) Colorectal polyps (Acute) Screening for colon cancer (Acute) Osteoarthritis of left knee (Chronic) History of total right knee replacement (Acute 03/22/22) Arthrofibrosis of total knee arthroplasty (Acute) Serrated adenoma of colon (Acute) Arthritis of right glenohumeral joint (Acute) Medical History Adenomatous colon polyp Arthritis of left ankle Degenerative joint disease HTN (hypertension) Hyperlipidemia Impingement of left ankle joint Memory deficit Myalgia CANDIEC (obstructive sleep apnea) CPAP Osteoarthritis of right knee Post-nasal drip Reading difficulty per sister states he really cant read well-still is able to sign for self sister is always with him Renal impairment Sensorineural hearing loss of both ears Tinnitus, bilateral Tremor Unilateral primary osteoarthritis, left knee Varicose veins of both lower extremities Surgical History History of colonoscopy 2008, 2018 (ssa) 2021 History of inguinal hernia as ~2 yo Hx of total knee arthroplasty right Family History Other Diabetes Heart disease Hyperlipidemia Hypertension Social History Smoking/Tobacco Use Status: Never Smoking risk assessment performed?: Yes Alcohol Intake: never Drug use: Never Substance use type: does not use Housing: house Current gender identity: male Additional Social history: Unable to assess privately. Lives with sister.
[2023-08-10] MEDS: Polyethylene Glycol 3350 17 GM PACKET PO (08:59)
[2023-08-10] MEDS: Docusate Sodium 100 MG CAP PO (09:00)
--- NOTE | 2023-08-10 09:01 | CMDISCH_ITS ---
Date of service: 08/10/23 Time of Service: 09:01 LACE Index Scoring Tool Questions: Length of Stay (in days): 2 Was the patient admitted via the E.D.?: No E.D. Visits: 0 Answers: Total Score: 2 Risk of Readmission: Low Risk Care Management Discharge Plan Reason for Hospitalization: Left Knee DJD Discharge Plan: Mamadou is discharged home via private vehicle with family. He will follow up with community providers and his discharge plan of care as ins tructed. No new services are ordered prior to discharge. Patient/Family Education Needs: Review discharge instructions, limitations, medications and plan to follow up with community providers. Discuss ask me three.
--- NOTE | 2023-08-10 09:21 | PTTR_ITS ---
Date of service: 08/10/23 Time of Service: 09:02 PT Notes Visit Reasons: Left knee DJD Inpatient Physical Therapy Treatment Note [facility] Date: 08/10/23 PRECAUTIONS: Fall, standard, activity as tolerated, WBAT LLE with AD SUBJECTIVE: Patient reports abdominal pain, feels like he needs to use the bathroom but hasn't had any luck, reports mostly gas OBJECTIVE: Sitting up in recliner, dressed in sweatpants, t shirt, sweatshirt, agreeable to therapy. ? PAIN: Reports pain mostly in quadriceps tendon area of LLE, also reports discomfort in right knee from where Dr. Del Rio popped off a whole bunch of bone spurs in that knee. VITALS: monitored by nursing staff.? BED MOBILITY/TRANSFERS? Rolling L/R: not assessed Supine-sit: not assessed ? Sit-supine: not assessed ? Sit-stand: independent, although patient needs to make sure that the chair is adequately heavy or secured against a wall as he pushes backwards hard and primarily uses momentum to stand. ? Stand-sit: independent, but again make sure that sitting surface is adequately secured because patient tends to flop backwards. ?Bed-Chair: SBA ? Chair-bed: SBA Gait Training ([id number]): Direct one-on-one instruction and skilled instruction in: [] employing an assistive device [] modified weight-bearing status [x] movement sequencing [] turning and movement with proper form [x] Provided verbal cues for equipment management and technique [x] Provided instruction in gait pattern [] Patient education regarding pacing and breathing techniques to maximize activity tolerance? GAIT? Assistive Device: FWW ? Weight bearing: WBAT LLE with AD Assist: SBA ? Distance:? 250 feet ? Deviation: Reduced ragini, antalgic gait pattern with reduced single leg stance on LLE, reduced swing through on LLE, asymmetric gait with right leg leading. Patient demonstrates good understanding of weight shift into arms. ? Therapeutic Exercises: Direct one-on-one instruction in therapeutic exercises t o develop strength, endurance, range of motion and flexibility. ? Exercises: HEP as established yesterday and reviewed with patient yesterday including 3x10 each of the following * heel slides * seated marching * quadriceps isometrics with 5 second hold, 5 second rest * hamstring isometrics with 5 second hold, 5 second rest * small range straight leg raise. Handout given to nurse Elías to give to patient's sister who is picking him up today. ASSESSMENT:? patient tolerates therapy well, only c/o increased pain is in abdomen, which patient ends therapy session because he needs to go to the bathroom. PLAN: Continue global strengthening per plan of care until patient is medically cleared for discharge. TREATMENT CODE/TIME: 16 minutes beginning at 9:02
--- NOTE | 2023-08-10 16:37 | CHAPLAIN ---
Mamadou had knee surgery and talked about how he was experience a lot of pain when I visited yesterday. He said he's having trouble lifting his leg. I introduced myself and offered support. He was discharged today.
--- NOTE | 2023-08-11 15:27 | PT.INDS ---
PT Notes Visit Reasons: Left knee DJD Physical Therapy Inpatient Discharge Summary Dates of Service: 08/08/2023 - 08/10/23 Date: 08/11/23 Referring Doctor: AARON Guy PT Orders: PT CONSULT: S/P Ortho Surgery Precautions: Fall. Standard. WBAT on the L LE with AD. This document serves as a summary of care. No PT services were provided on this date. Patient Profile/Admitting Diagnosis: Mamadou is a 62-year-old male patient with degenerative joint disease of the L knee and is S/P L total knee arthroplasty. Patient participated in 4 sessions of PT intervention over the course of 3 days. They were able to demonstrate safety and mobility sufficient to allow for safe return home. PMHX: Medical History?(Updated 07/31/23 @ 14:11 by Fela Salmon) Adenomatous colon polyp Arthritis of left ankle Degenerative joint disease HTN (hypertension) Hyperlipidemia Impingement of left ankle joint Memory deficit Myalgia CANDICE (obstructive sleep apnea) CPAP Osteoarthritis of right knee Post-nasal drip Renal impairment Sensorineural hearing loss of both ears Tinnitus, bilateral Tremor Unilateral primary osteoarthritis, left knee Varicose veins of both lower extremities Surgical History?(Updated 09/15/22 @ 09:03 by Jennifer Rosenberg RN) History of colonoscopy 2018 (ssa) 2021 History of inguinal hernia as ~2 yo Hx of total knee arthroplasty right Social History/Home Situation: Mamadou lives with his sister in a private home with 2 steps to enter with rails on both sides.? His bedroom is on the basement with 3 steps to enter with bilateral rails.? Sister does not work and has been doing grocery shopping and meal preparation/cooking for patient.? Patient does not drive. Equipment Owned/DME: FWW Subjective: none obtained Objective: ROM: Right Lower Extremity: Hip flexion WFL. Hip abduction WFL. Knee flexion WFL.? Knee extension WFL. Ankle dorsiflexion WFL. Ankle plantarflexion WFL. Left Lower Extremity: Hip flexion WFL. Hip abduction WFL. Knee flexion about 20 degrees to 90 degrees ACTIVELY while at edge of bed. Ankle dorsiflexion WFL. Ankle plantarflexion WFL. Strength: Right Lower Extremity: Hip flexors 5/5. Hip abductors 5/5. Knee flexors 4/5. Knee extensors 4/5. Ankle dorsiflexors 5/5. Ankle plantarflexors 5/5. Left Lower Extremity: Hip flexors 4/5. Hip abductors 4/5. Knee flexors 3-/5. Knee extensors 3-/5. Ankle dorsiflexors 4/5. Ankle plantarflexors 4/5. BED MOBILITY/TRANSFERS? Rolling L/R: modified independent with side rails ?Supine-sit: patient states that he needs help, proceeds to be modified independent with slightly elevated HOB and side rails. ? Sit-supine: independent?Sit-stand: independent, although patient needs to make sure that the chair is adequately heavy or secured against a wall as he pushes backwards hard and primarily uses momentum to stand.? ? ?Stand-sit: independent, but again make sure that sitting surface is adequately secured because patient tends to flop backwards.? Bed-Chair: SBA ?Chair-bed: SBA ? GAIT?Assistive Device: FWW ?Weight bearing: WBAT LLE with AD ?Assist: SBA ?Distance:? 250 feet ? Balance: Static Sitting: Fair Dynamic Sitting: Fair Static Standing: Fair Dynamic Standing: Fair ASSESSMENT: Mamadou is a 62-year-old male patient with degenerative joint disease of the L knee and is S/P L total knee arthroplasty. Patient participated in 4 sessions of PT intervention over the course of 3 days. They were able to demonstrate safety and mobility sufficient to allow for safe return home. Goals: Goals X1 week 1. Supine-Sit independent (MET) 2. Sit-Supine independent(MET) 3. Sit-Stand independent(MET) 4. Stand-Sit independent with FWW (MET) 5. Bed-Chair independent with FWW (MET) 6. Chair-Bed independent with FWW (MET) 7. Independent gait on level surface with use of FWW for at least 300 feet without report of pain nor dyspnea (Progressing Toward) 8. Independent stair negotiation while holding onto B rails for at least 5 steps without report of pain nor dyspnea (Progressing Toward) 9. Independent with home exercise program (MET) 10. Good static and dynamic standing balance/tolerance (Progressing Toward) Plan of Care/Treatment Plan: D/C from PT in acute care setting. DISCHARGE RECOMMENDATIONS: [X] ? Home with outpatient PT.? Home when medically cleared by orthopedic surgeon.? Outpatient PT services to return to independent ADL performance and community ambulation without an assistive device. TREATMENT CODE/TIME: none Thank you for the opportunity to participate in the care of this patient. Brianda Hernandez, PT, DPT [facility] [place], [place]
== END 2023-08-10 10:48 | disposition home or self-care (01) ==
LOC: SUR 10:16 → ICU 12:42 → MS 18:53
PROVIDERS: Admitting Provider Student in an Organized Health Care Education/Training Program; PCP Family Medicine; Visit Provider Student in an Organized Health Care Education/Training Program
PROC: (CPT 27447; principal; 2023-08-08 13:00)
DX: M17.12 Unilateral primary osteoarthritis, left knee (principal); F70 Mild intellectual disabilities; Z96.651 Presence of right artificial knee joint; I10 Essential (primary) hypertension; E78.5 Hyperlipidemia, unspecified; G47.33 Obstructive sleep apnea (adult) (pediatric); N28.9 Disorder of kidney and ureter, unspecified; G25.2 Other specified forms of tremor; R41.3 Other amnesia; H90.3 Sensorineural hearing loss, bilateral; R09.82 Postnasal drip; M79.10 Myalgia, unspecified site; F81.0 Specific reading disorder; E66.9 Obesity, unspecified; Z68.36 Body mass index [BMI] 36.0-36.9, adult
CPT/HCPCS: 27447; C1776; 76942; 97110; 97116; 97162; G0378; J0690; J1100; J1170; J1200; J2405; J8540

== ENCOUNTER 2023-08-21 15:29 | Outpatient (CLI) | payer MEDICARE, SELFPAY ==
--- NOTE | 2023-08-21 14:15 | DI.RAD_ITS ---
Exam(s) XR KNEE LT 1V XR STANDING ALIGNMENT EXAM: XR STANDING ALIGNMENT and XR knee LT 1 V CLINICAL HISTORY: 1ST POST OP L TKA. TECHNIQUE: 2D digital imaging was performed. Five images were obtained. COMPARISON: CR XR STANDING ALIGNMENT from 04/08/2022 CR XR KNEE LT 1V from 08/21/2023 FINDINGS: BONES: Degenerative changes of the hips. There are bilateral total knee replacements. The orthopedi c hardware appears well seated. There is a left knee joint effusion. The ankles are well maintained .There is no significant leg length discrepancy. SOFT TISSUE: Normal. IMPRESSION: Stable left total knee replacement. DATA REPOSITORY: RADIATION DOSE DELIVERED:
== END 2023-08-21 15:30 | disposition home or self-care (01) ==
LOC: DIORS 15:30
PROVIDERS: PCP Family Medicine; Referring Provider Nurse Practitioner Family; Visit Provider Student in an Organized Health Care Education/Training Program
DX: Z96.652 Presence of left artificial knee joint (principal); Z47.1 Aftercare following joint replacement surgery
CPT/HCPCS: 73560; 77073

== ENCOUNTER → 2023-09-25 14:11 | Outpatient (BNVA) | payer MEDICARE, SELFPAY | PROVIDERS: PCP Family Medicine; Referring Provider Family Medicine; Visit Provider Student in an Organized Health Care Education/Training Program | DX: Z47.1 Aftercare following joint replacement surgery (principal); T84.82XA Fibrosis due to internal orthopedic prosthetic devices, implants and grafts, initial encounter; Z96.652 Presence of left artificial knee joint ==

== ENCOUNTER 2024-08-01 21:16 | Outpatient (REF) | payer MEDICARE, SELFPAY ==
--- OUTSIDE RECORDS SUMMARY | 2024-08-01 21:18 | XMS_ITS | Referral Summary ---
Author Organization [facility] Address [address] [place] [address] Care Team Providers Care Soa Architect Name Role Phone Anahi Stubbs J LUIS Primary Care Provider [phone] Social History Tobacco Use Types Packs/Day Years Used Date Smoking Tobacco: Never Assessed Interpersonal Safety Answer Date Record ed Physically Hurt Never 06/08/2020 Verbally Threaten Not on file 06/08/2020 Sex and Gender Information Value Date Recorded Sex Assigned at Not on file Gender Identity Not on file Sexual Orientation Not on file Plan of Treatment Not on file Care Teams Soa Architect Relationship Specialty Start Date End Date Anahi Stubbs APRN [address] [place] [address] PCP - General 08/06/22
--- OUTSIDE RECORDS SUMMARY | 2024-08-01 21:18 | XMS_ITS | Encounter Summary ---
Author Organization [facility] Address [address] [place] [address] Care Team Providers Care Enterprise Services Manager Name Role Phone Unknown, Provider Primary Care Provider [phone] Encounter Details Date Type Department Care Team (Latest Contact Info) Description 03/11/2019 14:28 EDT - 03/11/2019 23:59 EDT Hospital Encounter [address] [address] Unknown, Provider, Discharge Disposition: Home or Self Care Social History Tobacco Use Types Packs/Day Years Used Date Smoking Tobacco: Never Assessed Sex and Gender Information Value Date Recorded Sex Assigned at Not on file Gender Identity Not on file Sexual Orientation Not on file documented as of this encounter Discharge Disposition Disposition Code Departure Means Destination Home or Self [facility] documented in this encounter Plan of Treatment Not on file documented as of this encounter Visit Diagnoses Not on filedocumented in this encounter Care Teams Enterprise Services Manager Relationship Specialty Start Date End Date Unknown, Provider, PCP - General 03/11/19 08/05/22 documented as of this encounter
--- OUTSIDE RECORDS SUMMARY | 2024-08-01 21:18 | XMS_ITS | Encounter Summary ---
Author Organization [facility] Address [address] [place] [address] Care Team Providers Care Parole Officer Name Role Phone Anahi Stubbs J LUIS Primary Care Provider [phone] Encounter Details Date Type Department Care Team (Late st Contact Info) Description 09/05/2022 Lab Requisition [facility] Pathology & Laboratory Medicine - [facility] [address] [place] [address] Ghanshyam King MD [address] [place] [address] [address] [place], [place] [id number] Encounter for screening for malignant neoplasm of colon Social History Tobacco Use Types Packs/Day Years Used Date Smoking Tobacco: Never Assessed Interpersonal Safety Answer Date Record ed Physically Hurt Never 06/08/2020 Verbally Threaten Not on file 06/08/2020 Sex and Gender Information Value Date Recorded Sex Assigned at Not on file Gender Identity Not on file Sexual Orientation Not on file documented as of this encounter Plan of Treatment Not on file documented as of this encounter Procedures Procedure Name Priority Date/Time Associated Diagnosis Comments SURGICAL PATHOLOGY Today 09/05/2022 7:44 EDT Encounter for screening for malignant neoplasm of colon documented in this encounter Results * SURGICAL PATHOLOGY (09/05/2022 7:44 EDT) Note to Patient The following pathology results have been interpreted by your pathologist and may be available to you before your health provider has had the opportunity to review them. Please allow time for your provider to receive these results and explore management options, if applicable. 09/07/2022 10:06 EDT [facility] Final Diagnosis A. COLON, CECUM, POLYP: - Fragments of tubular adenoma. B. COLON, SIGMOID, POLYPS x2: - Hyperplastic polyp. - Separate mucosal prolapse type polyp. C. RECTUM, POLYPS x2: - Fragments of hyperplastic polyps. 09/07/2022 10:06 [facility] Attestation By the signature below, the attending physician certifies that they have 1) personally conducted a gross and/or microscopic examination of the described specimen(s), and/or personally interpreted the results of laboratory testing of the described specimen(s), and 2) personally rendered or confirmed the above diagnosis. 09/07/2022 10:06 [facility] at 1006 Clinical History Colon cancer screening, H/O polyps 09/07/2022 10:06 [facility] Gross Description A. Received in formalin labelled with proper patient identification (initials C, M) and cecal polyp is an aggregate of bauer fragments of polypoid tissue that measures 1.0 x 0.7 x 0.3 cm. The specimen is submitted entirely in A1. B. Received in formalin labelled with proper patient identification (initials C, M) and sigmoid polyp x2 are two bauer tissues (0.7 x 0.1 x 0.1 cm and 0.3 x 0.1 x 0.1 cm). Entirely submitted in B1. C. Received in formalin labelled with proper patient identification (initials C, M) and rectal polyps x2 are 3 bauer tissues (0.3 x 0.1 x 0.1 cm to 0.2 x 0.1 x 0.1 cm). Entirely submitted in C1. YOSEPH AVERY 09/06/2022 5:45 09/07/2022 10:06 [facility] Performing Lab [facility] 09/07/2022 10:06 [facility] Scanned Images 09/07/2022 10:06 [facility] Tissue SPECIMEN FROM RECTUM / Unknown 09/05/2022 7:44 EDT 09/05/2022 18:22 EDT Tissue specimen (specimen) SIGMOID COLON STRUCTURE / Unknown 09/05/2022 7:44 EDT 09/05/2022 18:22 EDT Tissue specimen (specimen) SPECIMEN FROM RECTUM / Unknown 09/05/2022 7:44 EDT 09/05/2022 18:22 EDT Ghanshyam King MD PATHOLOGY ORDERA JASPREET [facility] [address] [place] [address] documented in this encounter Visit Diagnoses Diagnosis Encounter for screening for malignant neoplasm of colon Special screening for malignant neoplasms, colon documented in this encounter Care Teams Parole Officer Relationship Specialty Start Date End Date Anahi Stubbs APRN [address] [place] [address] PCP - General 08/06/22 documented as of this encounter
--- OUTSIDE RECORDS SUMMARY | 2024-08-01 21:18 | XMS_ITS | Encounter Summary ---
Author Organization [facility] Address [address] [place] [address] Care Team Providers Care Burlap Roll Coverer Name Role Phone Unknown, Provider Primary Care Provider Anahi Stubbs APRN Primary Care Provider [phone] Encounter Details Date Type Department Care Team (Late st Contact Info) Description 03/09/2021 Lab Requisition [facility] Pathology & Laboratory Medicine - [address] [address] Outr Resulting Lab, Provider Social History Tobacco Use Types Packs/Day Years [...] Procedure Name Priority Date/Time Associated Diagnosis Comments ANTI NUCLEAR AB (NATY), IFA Routine 03/08/2021 12:05 EDT documented in this encounter Results * ANTI NUCLEAR AB (NATY), IFA (03/08/2021 12:05 EDT) NATY Interpretation Negative Negative 2020 15:[address] [facility] Comment:No titer performed, NATY Screen is negative. Blood VENOUS BLOOD / Unknown 03/08/2021 12:05 EDT 03/09/2021 15:44 EDT [address] [facility] - 03/10/2021 15:25 EDT Results were obtained with the INOVA NOVA Lite HEp-2 NATY Kit by indirect immunofluorescence. Provider Outr Resulting Lab IMMUNOLOGY A ND SEROLOGY ORDERABLES [facility] [address] [place] [address] documented in this encounter Visit Diagnoses Not on filedocumented in this encounter Care Teams Burlap Roll Coverer Relationship Specialty Start Date End Date Unknown, Provider, PCP - General 03/11/19 08/05/22 Anahi Stubbs, J LUIS [address] [facility] [address] [place] [address] PCP - General 08/06/22 documented as of this encounter
--- OUTSIDE RECORDS SUMMARY | 2024-08-01 21:18 | XMS_ITS | Encounter Summary ---
Author Organization [facility] Address [address] [place] [address] Care Team Providers Care Assistant Professor Of Business Name Role Phone Unknown, Provider Primary Care Provider [phone] Encounter Details Date Type Department Care Team (Late st Contact Info) Description 03/11/2019 Results Only [facility] [phone] Lillie Dunham MD [address] [place] [address] [address] [place], [place] [id number] Social History Tobacco Use Types Packs/Day Years Used Date Smoking Tobacco: Never Assessed Sex and Gender Information Value Date Recorded Sex Assigned at Not on file Gender Identity Not on file Sexual Orientation Not on file documented as of this encounter Plan of Treatment Not on file documented as of this encounter Procedures Procedure Name Priority Date/Time Associated Diagnosis Comments SURGICAL PATHOLOGY Routine 03/11/2019 21 :30 EDT documented in this encounter Results * SURGICAL PATHOLOGY (03/11/2019 21:30 EDT) Pathology Report: SURGICAL PATHOLOGY REPORT Reports generated via electronic interface contain original data; however they are lacking the format of the original report. Caution should be taken when reading/interpret ing unformatted reports. Name: ? MAMADOU RICHARDSON ? Accession #: ? [id number] ? : ? 1960 (Age: 58) ??M ? Collect Date: ? 03/11/2019 ? Location: ? [facility] ? Receive Date: ? 03/11/2019 ? Provider: LILLIE DUNHAM MD Copy to: JORDI LICONA ENVIRONMENTAL FIELD TEAM MEMBER ? Final Pathologic Diagnosis: A. COLON, ASCENDING, POLYP, BIOPSIES: - Fragments of sessile serrated adenoma. B. COLON, DESCENDING, POLYP, BIOPSY: - Hyperplastic polyp. C. COLON, SIGMOID, POLYP, BIOPSY: - Hyperplastic polyp. D. RECTUM, POLYPS, BIOPSIES: - Hyperplastic polyps. Document reviewed and electronically signed by: GEORGIA JUAREZ MD Report ??Date: 03/14/2019 17:16 By the signature above, the attending physician certifies that he/she has personally conducted a gross and/or microscopic examination of the described specimens and rendered or confirmed the above diagnosis. Specimen(s) Received: A. ??Ascending colon polyp B. ??Descending colon polyp C. ??Sigmoid colon polyp D. ??Rectal polyps x2 Clinical History: Family history and cancer screening Gross Description: A. ?Received in formalin labelled with proper patient identification (initials C, M) and ascending colon polyp are 11 bauer-white tissues (0.1 x 0.1 x 0.1 cm to 0.5 x 0.1 x 0.1 cm). Entirely submitted in A1 through A4. B. ?Received in formalin labelled with proper patient identification (initials C, M) and descending colon polyp is a single bauer-white tissue fragment (0.3 x 0.2 x 0.1 cm). Submitted intact in B1. C. ?Received in formalin labelled with proper patient identification (initials C, M) and sigmoid colon polyp are two bauer tissues each measuring (0.2 x 0.1 x 0.1 cm). Entirely submitted in C1. D. ?Received in formalin labelled with proper patient identification (initials C, M) and rectal polyps x2 are two white tissues (0.1 x 0.1 x 0.1 cm and 0.2 x 0.1 x 0.1 cm). Entirely submitted in D1. Migeorge Robledo 03/12/2019 8:[address] [facility] 03/11/2019 21:3 0 EDT 03/11/2019 21:30 EDT Lillie Dunham MD PATHOLOGY ORDERA JASPREET [facility] [address] [place] [address] documented in this encounter Visit Diagnoses Not on filedocumented in this encounter Care Teams Assistant Professor Of Business Relationship Specialty Start Date End Date Unknown, Provider, PCP - General 03/11/19 08/05/22 documented as of this encounter
--- OUTSIDE RECORDS SUMMARY | 2024-08-01 21:18 | XMS_ITS | Clinical Summary ---
Author Organization [facility] Address [address] [place] [address] Care Team Providers Care Weigh And Charge Worker Name Role Phone EnocAnahi Julien DIETZ Primary Care Provider [phone] Social History Tobacco Use Types Packs/Day Years Used Date Smoking Tobacco: Never Assessed Interpersonal Safety Answer Date Record ed Physically Hurt Never 06/08/2020 Verbally Threaten Not on file 06/08/2020 Sex and Gender Information Value Date Recorded Sex Assigned at Not on file Gender Identity Not on file Sexual Orientation Not on file Plan of Treatment Health Maintenance Due Date Last Done Comments Hepatitis C Screen 1960 RSV Immunization ( o r 60+ Years) (1 - 1-dose 60+ series) 2020 COVID-19 Vaccine ( season) 2024 Care Teams Weigh And Charge Worker Relationship Specialty Start Date End Date Anahi Stubbs APRN [address] [place] [address] PCP - General 08/06/22
--- OUTSIDE RECORDS SUMMARY | 2024-08-01 21:18 | XMS_ITS | Encounter Summary ---
Author Organization [facility] Address [address] [place] [address] Care Team Providers Care Refrigeration Person Name Role Phone Unknown, Provider Primary Care Provider Anahi Stubbs APRN Primary Care Provider [phone] Encounter Details Date Type Department Care Team (Late st Contact Info) Description 02/03/2021 Lab Requisition [facility] Pathology & Laboratory Medicine - [address] [address] Outr Resulting Lab, Provider Social History Tobacco [...] Procedure Name Priority Date/Time Associated Diagnosis Comments ZZCOVID-19 TEST [facility] PCR Today 02/03/2021 10:45 EDT COVID-19 TESTING Routine 02/03/2021 10:4 5 EDT documented in this encounter Results * COVID-19 TEST [facility] PCR (02/03/2021 10:45 EDT) Swab ENTIRE NASOPHARYNX / Unknown 02/03/2021 10:45 EDT 02/03/2021 20:40 EDT Provider Outr Resulting Lab MICROBIOLOGY - GENERAL ORDERABLES [facility] [address] [place] [address] * COVID-19 TESTING (02/03/2021 10:45 EDT) COVID-19 rt-PCR Result Negative Negative 02/04/2021 16:22 EDT [facility] Comment: This test has not been FDA cleared or approved. This test has been authorized by FDA under an EUA for use by authorized laboratories. This test has been authorized only for detection of nucleic acid from 2019-nCoV, not for any other viruses or pathogens. This test is only authorized for the duration of the declaration that circumstances exist justifying the authorization of emergency use of in vitro diagnostic tests for detection and/or diagnosis of 2019-nCoV under section 564(b)(1) of Act, 21 U.S.C ?? 360bbb-3(b) (1), unless the authorization is terminated or revoked sooner. Negative results do not preclude 2019-nCoV infection and should not be used as the sole basis for treatment or other patient management decisions. Negative results must be combined with clinical observations, patient history, and epidemiological information. This test was developed and its performance characteristics determined by [facility]. It has not been cleared or approved by the US Food and Drug Administration. FDA does not require this test to go through premarket FDA review. This test is used for clinical purposes. It should not be regarded as investigational or for research. This laboratory is certified under the Clinical Laboratory Improvement Amendments (CLIA) as qualified to perform high complexity clinical laboratory testing. This test is based on the [facility] COVID-19 Emergency Use Authorization (EUA) assay, with minor modification as defined by the FDA Performed on the Ensocareo 7 Pro RT-PCR System. Performing Lab [facility] Lab 02/04/2021 16:22 EDT [facility] Swab 02/03/2021 10:4 5 EDT 02/03/2021 20:40 EDT Provider Outr Resulting Lab MICROBIOLOGY - GENERAL ORDERABLES [facility] [address] [place] [address] documented in this encounter Visit Diagnoses Not on filedocumented in this encounter Care Teams Refrigeration Person Relationship Specialty Start Date End Date Unknown, Provider, PCP - General 03/11/19 08/05/22 Anahi Stubbs APRN [phone] [id number] PCP - General 08/06/22 documented as of this encounter
[2024-08-01 21:42] LABS: HCT 46.3 % (40.0-50.0); HGB 15.7 g/dL (13.5-17.5); MCH 30.5 pg (27.0-33.0); MCHC 33.9 % (32.0-36.0); MCV 90 fL (80-95); MPV 11.7 fL (8.0-11.0); Platelet Count 202 10^3/uL (130-400); RBC 5.14 10^6/uL (4.36-5.78); RDW 13.8 % (11.8-14.1); RDW-SD 45.6 fL; WBC 5.95 10^3/uL (4.4-10.8)
[2024-08-01 21:59] LABS: ALT 34 U/L (16-63); AST 23 U/L (15-37); Alkaline Phosphatase 82 U/L (46-116); Anion Gap 6.7 mmol/L (3-11); BUN 17 mg/dL (7-18); Bilirubin, Total 0.61 mg/dL (0.2-1.0); CO2 29.3 mmol/L (21.0-32.0); CREATININE 1.4 mg/dL (0.70-1.30); Calcium 9.5 mg/dL (8.5-10.1); Chloride 106 mmol/L (98-107); Estimated GFR 56.48 (mL/min/1.73m2); Glucose 90 mg/dL (74-106); Potassium 3.7 mmol/L (3.5-5.1); Sodium 142 mmol/L (136-145); Total Protein 7.1 g/dL (6.4-8.2)
== END 2024-08-01 21:17 | disposition home or self-care (01) ==
LOC: NCHCN 21:16
PROVIDERS: PCP Family Medicine; Visit Provider Family Medicine
DX: I10 Essential (primary) hypertension (principal)
CPT/HCPCS: 80053; 85027

== ENCOUNTER 2024-12-06 22:14 | Emergency (ER) | payer MEDICARE, SELFPAY ==
[2024-12-06 22:14] VITALS: BP 172/76; PULSE 56; RESP 18; TEMP 36.5; O2SAT 98
--- NOTE | 2024-12-06 22:30 | ED.GENADUL_ITS ---
Discharge Plan Disposition Patient Disposition: Home Condition: Improving Discharge Details Clinical Impression: Acute exacerbation of chronic low back pain, Spinal stenosis of lumbar region at multiple levels, Chronic renal impairment Primary Care Provider: Vaibhav Us ED Provider: Hernando Sanchez Home Meds and New Rx's Prescriptions: New methocarbamol 750 mg tablet 1,500 mg PO Q8H Qty: 30 0RF oxycodone 5 mg tablet 5 mg PO Q6H PRNQty: 20 0RF lidocaine [Lidoderm] 5 % adhesive patch,medicated 1 patch topical DAILY Qty: 15 0RF Rx Instructions: leave on most painful area for up to 12 hrs No Action amlodipine 10 mg tablet 5 mg PO HS losartan 100 mg tablet 100 mg PO HS vitamin B complex [B Complex-Vitamin B12] Tablet 1 tab PO DAILY cholecalciferol (vitamin D3) 10 mcg (400 unit) capsule 10 mcg PO DAILY naproxen 250 mg tablet 500 mg PO BID PRN atenolol 100 mg tablet 100 mg PO HS fluticasone propionate 50 mcg/actuation spray,suspension 1 spray intranasal DAILY PRN Rx Instructions: administer into each nostril loratadine [Claritin] 10 mg tablet 10 mg PO HS terazosin 1 mg capsule 1 mg PO QHS acetaminophen 500 mg tablet 1,000 mg PO Q8H PRN Qty: 90 0RF Rx Instructions: Take two tablets up to every 8 hours as needed for pain docusate sodium [Colace] 100 mg capsule 100 mg PO BID PRN Discharge Instructions Instructions: Chronic kidney disease, Spinal Stenosis Strengthening Exercises, Low Back Pain ED Additional Instructions: Expect to have worsening symptoms in the morning when you first get up. Lying around or sitting around for long periods of time during the day will make back pain worse and extend the timeframe for your symptoms. While you should avoid any heavy lifting, squatting, stooping, or straining with your low back, you should continue to get up and walk around your house throughout the day. You will find that you feel better as the day progresses. When sitting, sit at about the hide of a barstool with your knee slightly flexed. This will unload the stress on your lower back and force you to sit with your shoulders a little more upright and back. This will also help with your pain over time. You can take 2-3 325 mg acetaminophen tablets every 4-6 hours as needed for symptoms of pain. You should not take any more anti-inflammatory medications in the short- term, these include: Aleve, Motrin, ibuprofen, naproxen, or aspirin. These medications will adversely affect your kidney function and you should not be using them until we have some improvement. You can take 1 or 2 methocarbamol tablets every 8 hours as needed for additional pain relief. Start with 1 tablet every 8 hours, and if this is not helping your symptoms, you can increase to 2 tablets every 8 hours. You can take 1 oxycodone tablet every 4-6 hours as needed for additional pain relief. This medication will make you sleepy and impair your coordination, so use caution similar to alcohol when taking it. Never drive or perform any hazardous activities after taking this medication, be prepared to get rest. This medication can be habit-forming and should be used sparingly, only enough to make pain tolerable. Apply Lidoderm patch to the area of maximal discomfort in your lower back, about every 12 hours as needed for additional pain relief. You should contact and follow-up with your regular the orthopedic specialty hospital doctor in the next week to 2 weeks for several reasons. 1. You should let them know that you were seen in the emergency room and have had some worsening kidney function. They may want to do a medication review to determine if there are medication changes they would like to make in this setting. 2. Your pain will likely continue longer than the prescription medications that I have written from the emergency room will last 3. You may want to consider a referral to pain management for ongoing management of your chronic low back pain, especially in the setting of not being able to use oral anti-inflammatory medications in the long-term. You can always return to the ER for any new concerns or sudden changes in your health which you feel require emergency medical attention. Discharge Data Discharge Physician: Hernando Sanchez [facility] General Date/Time Provider Initiated Documentation: 12/06/24 22:22 . [facility] Narrative: The patient is a 64-year-old male, with a past medical history significant for hypertension, BPH, chronic osteoarthritis of the knees and chronic low back pain, who presents to the emergency department this evening complaining of low back pain which became acutely worse after a fall from a 3 step ladder while working outside of his barn earlier in the evening at around 5 PM. Patient states that he took (2 Tylenol) at around 5:30 PM, which did not significantly improve his symptoms. The patient states that he thinks his back pain is similar to his prior back pain but much worse than usual. supervisor special effects reported no obvious traumatic findings on the exam. The patient reported a 6 out of 10 pain while seated at his home, and states that his pain was 2 out of 10 when he was lying flat for them in the ambulance. The patient denies other injuries such as neck pain, upper back pain, head strike or headache. He states that he fell backwards off the ladder and twisted to land on his left side. He was initially ambulatory after the accident back to his home where he sat in a chair and then developed worsening low back pain symptoms. Related Data Home Medications ?Medication ?Instructions ?Recorded ?Confirmed amlodipine 10 mg tablet 5 mg PO HS 11/26/18 12/06/24 losartan 100 mg tablet 100 mg PO HS 11/26/18 12/06/24 atenolol 100 mg tablet 100 mg PO HS 09/24/20 12/06/24 fluticasone propionate 50 1 spray intranasal DAILY PRN 09/24/20 12/06/24 mcg/actuation nasal spray,suspension loratadine 10 mg tablet (Claritin) 10 mg PO HS 07/01/21 12/06/24 terazosin 1 mg capsule 1 mg PO QHS 07/01/21 12/06/24 cholecalciferol (vitamin D3) 10 10 mcg PO DAILY 08/30/22 12/06/24 mcg (400 unit) capsule vitamin B complex (B 1 tab PO DAILY 08/30/22 12/06/24 Complex-Vitamin B12 tablet) acetaminophen 500 mg tablet 1,000 mg (2 x 500 mg) PO Q8H PRN 08/08/23 12/06/24 pain #90 tabs naproxen 250 mg tablet 500 mg PO BID PRN 08/21/23 12/06/24 docusate sodium 100 mg capsule 100 mg PO BID PRN 12/06/24 12/06/24 (Colace) lidocaine 5 % topical patch 1 patch topical DAILY pain #15 ea 12/07/24 (Lidoderm) methocarbamol 750 mg tablet 1,500 mg (2 x 750 mg) PO Q8H #30 12/07/24 tabs oxycodone 5 mg tablet 5 mg PO Q6H PRN #20 tabs 12/07/24 Previous Rx's ?Medication ?Instructions ?Recorded acetaminophen 500 mg tablet 1,000 mg (2 x 500 mg) PO Q8H PRN 08/08/23 pain #90 tabs lidocaine 5 % topical patch 1 patch topical DAILY pain #15 ea 12/07/24 (Lidoderm) methocarbamol 750 mg tablet 1,500 mg (2 x 750 mg) PO Q8H #30 12/07/24 tabs oxycodone 5 mg tablet 5 mg PO Q6H PRN #20 tabs 12/07/24 Allergies Allergy/AdvReac Type Severity Reaction Status Date / Time CLARA Inhibitors AdvReac Unknown Unknown Verified 12/06/24 22:19 General Stated Complaint: Fall/Non TraumaCriteria ALAYNA: 3 Exam Const General: cooperative, healthy appearing and no acute distress Nutritional Appearance: overweight HENMT Head: normal to inspection, normocephalic and atraumatic Ears: external ears normal General nose exam: external nose normal Face and sinus: normal facial exam Eyes Sclera: sclerae normal Cornea: corneas normal EOM: EOM intact bilaterally Neck Neck: full ROM, supple and nontender Chest Chest: normal inspection of the chest and no tenderness Resp Effort & Inspection: normal respiratory effort and able to speak in complete sentences Auscultation: clear to auscultation bilaterally Cardio Rate: regular rate Rhythm: regular rhythm GI Inspection: normal to inspection Palpation: soft Auscultation: normal bowel sounds Back/Spine/Pelvis Back: no CVA tenderness and back tenderness Cervical Spine: No cervical muscular tenderness, No pain with cervical ROM and No step off deformity Thoracic/Lumbar Spine: thoracic and lumbar spine normal to inspection, thoraco- lumbar ROM limited, No thoracic spinal tenderness and No lumbar spinal tenderness Pelvis: pain with anterior-posterior compression, pain with lateral compression, no buttock ecchymosis and no buttock tenderness Sacrum: no ecchymosis and no tenderness Coccyx: no swelling and no tenderness Skin General skin exam: no rashes or lesions noted Trauma: lacerations and/or abrasions noted, no abrasions, no lacerations and no punctures noted Neuro General: patient awake, patient oriented x3, moves all extremities, normal light touch, pain and propioception, no focal motor deficits and CN's II-XI intact bilaterally Extrem General: normal to inspection, full ROM and no clubbing, cyanosis or edema Right upper extremity: normal to inspection and full ROM Left upper extremity: normal to inspection and full ROM Right lower extremity: normal to inspection and full ROM Left lower extremity: normal to inspection and full ROM Psych Appearance: grossly normal Mental Status: mental status grossly normal Speech and Movement: speech and movement normal Mood: anxious mood Course Vital Signs Vital signs: Vital Signs Temperature 36.5 C 12/06/24 22:14 Pulse 56 L 12/06/24 22:14 Respiratory Rate 18 12/06/24 22:14 Blood Pressure 172/76 H 12/06/24 22:14 Pulse Oximetry 98 12/06/24 22:14 Temperature 36.5 C 12/06/24 22:14 Temperature Source Temporal Artery Scan 12/06/24 22:14 Pulse 56 L 12/06/24 22:14 Respiratory Rate 18 12/06/24 22:14 Blood Pressure 172/76 H 12/06/24 22:14 Blood Pressure Position Supine 12/06/24 22:14 Pulse Oximetry 98 12/06/24 22:14 Oxygen Delivery Method Room Air 12/06/24 22:14 Oxygen Flow Rate 0 12/06/24 22:14 Pain Level 6 12/06/24 22:21 Medical Decision Making Medical Records Medical records narrative: The patient was seen and examined. He appears in no distress and has essentially normal vital signs here in the emergency department. The patient has a pulse of 56 but currently takes atenolol which makes it unlikely that he would have a normal tachycardic response to pain. He does have some elevation of his blood pressure. There are no obvious signs of external trauma on secondary trauma survey. There was no significant increase in the pain in the lower back to palpation of the posterior bony processes or flanks on the examination. There was no pain to compression or traction maneuvers in the pelvis and hips. The patient did have some limited flexion of his knees which he related to chronic osteoarthritis. The patient was given IV acetaminophen and IV Toradol here in the emergency room. He had standard traumatic injury labs obtained on the off chance that there is some significant injury found on his radiographic imaging. The patient will have an abdominal pelvic CT without contrast and lumbar spine recon images to exclude any fractures or obvious traumatic injury related to the fall. If the patient has no bony injuries, he will be assessed for ambulation and movement after medications here in the derek rgency room. Quality:SDOH Health Related Social Needs: No Data to Display PFSH All Active Problems (Updated 12/07/24 @ 00:11 by Hernando Sanchez MD) Chronic renal impairment (Acute) Spinal stenosis of lumbar region at multiple levels (Acute) Acute exacerbation of chronic low back pain (Acute) History of total left knee replacement (Acute 08/08/23) Mild intellectual disability (Chronic) Obesity (Chronic) Family history of colon cancer (Chronic) Colorectal polyps (Acute) Screening for colon cancer (Acute) History of total right knee replacement (Acute 03/22/22) Arthrofibrosis of total knee arthroplasty (Acute) BILATERAL Serrated adenoma of colon (Acute) Arthritis of right glenohumeral joint (Acute) Medical History Adenomatous colon polyp Arthritis of left ankle Degenerative joint disease HTN (hypertension) Hyperlipidemia Impingement of left ankle joint Memory deficit Myalgia CANDICE (obstructive sleep apnea) CPAP Osteoarthritis of right knee Post-nasal drip Reading difficulty per sister states he really cant read well-still is able to sign for self sister is always with him Renal impairment Sensorineural hearing loss of both ears Tinnitus, bilateral Tremor Unilateral primary osteoarthritis, left knee Varicose veins of both lower extremities Surgical History History of colonoscopy 2008, 2018 (ssa) 2021 History of inguinal hernia as ~2 yo Hx of total knee arthroplasty right Family History Other Diabetes Heart disease Hyperlipidemia Hypertension Social History Smoking/Tobacco Use Status: Never Smoking risk assessment performed?: Yes Alcohol Intake: never Drug use: Never Substance use type: does not use Housing: house Current gender identity: male Do you feel safe at home: Yes Do you feel safe in your relationship?: Yes
[2024-12-06 22:39] LABS: Abs Immature Grans 0.02 10^3/uL (0.0-0.06); Absolute Basophil Count 0.06 10^3/uL (0.0-0.2); Absolute Eosinophil Count 0.13 10^3/uL (0.0-0.7); Absolute Lymphocyte Count 1.73 10^3/uL (1.2-3.4); Absolute Monocyte Count 0.76 10^3/uL (0.1-0.8); Absolute Neutrophil Count 5.97 10^3/uL (1.2-6.7); Basophils % 0.7 %; Eosinophils % 1.5 %; HCT 44.6 % (40.0-50.0); HGB 15.4 g/dL (13.5-17.5); Immature Grans % 0.2 %; MCHC 34.5 % (32.0-36.0); MCV 90 fL (80-95); MPV 11.1 fL (8.0-11.0); Monocytes % 8.8 %; Neutrophils % 68.8 %; Platelet Count 183 10^3/uL (130-400); RBC 4.97 10^6/uL (4.36-5.78); RDW 13.7 % (11.8-14.1); RDW-SD 44.9 fL; WBC 8.67 10^3/uL (4.4-10.8)
[2024-12-06] MEDS: Ketorolac 15 MG/ML VIAL IVP (22:41)
[2024-12-06] MEDS: ACETAMINOPHEN 1,000 MG/100 ML BAG 400 MG IVPB (22:41)
[2024-12-06 22:52] LABS: ETHANOL BLOOD < 3.0 mg/dL (<10)
[2024-12-06 22:54] LABS: ALT 31 U/L (16-63); AST 30 U/L (15-37); Alkaline Phosphatase 83 U/L (46-116); Anion Gap 9.1 mmol/L (3-11); BUN 25 mg/dL (7-18); Bilirubin, Total 0.82 mg/dL (0.2-1.0); CO2 27.9 mmol/L (21.0-32.0); CREATININE 1.9 mg/dL (0.70-1.30); Calcium 9.4 mg/dL (8.5-10.1); Chloride 108 mmol/L (98-107); Estimated GFR 38.91 (mL/min/1.73m2); Glucose 110 mg/dL (74-106); Potassium 4.2 mmol/L (3.5-5.1); Sodium 145 mmol/L (136-145); Total Protein 7.6 g/dL (6.4-8.2)
--- NOTE | 2024-12-06 22:55 | DI.CT_ITS ---
Exam(s) CT LUMBAR SPINE RECONS CT ABDOMEN PELVIS WO EXAM: CT ABDOMEN PELVIS WO and CT lumbar spine recons CLINICAL HISTORY: fall from 3 step ladder onto left side, low back p. TECHNIQUE: Imaging Protocol: Axial computed tomography images with coronal and sagittal reformatted images were created and reviewed. COMPARISON: There are no priors for comparison. FINDINGS: Examination is limited due to lack of IV contrast material. ABDOMEN: Lung Bases: Coronary artery calcification is present. Liver: Normal density. No measurable mass. Gallbladder and biliary tract: No radiodense calculus or biliary ductal dilation. Pancreas: Normal density, no abnormal calcifications or inflammatory process. Spleen: Normal. Kidneys: Normal size, contour and axis.There is bilateral nephrolithiasis. No obstructive uropathy. No masses seen. Adrenal glands: No mass is seen. Lymph nodes: Within normal limits. Abdominal Aorta: Abdominal portion non-dilated. Atherosclerotic calcification is present. 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 This is a normal variant. PELVIS: Bladder:Symmetric distention, no gross wall thickening. Bowel: No obstruction or bowel wall thickening. Appendix is unremarkable. Peritoneal cavity: No ascites, collection or mesenteric inflammatory response. No free air. Reproductive organs: Unremarkable as visualized. Bones: Degenerative changes are seen in the hips. There is a small fat containing umbilical hernia. Soft Tissues: Within normal limits. Lumbar spine CT recons: No acute fracture or dislocation is present. Age-appropriate degenerative ch anges are present throughout the lumbar spine. There are diffuse disc bulges at L3-L4, L4-L5 and L5- S1. In addition, degenerative changes of the facets and ligamentum flavum hypertrophy is noted. The re is resultant central spinal canal stenosis which is most marked at L3-L4 and L4-L5. There is also neural foraminal stenosis at L4-5 and L5-S1. IMPRESSION: 1. No acute abdominal or pelvic process. 2. No acute fracture or subluxation. Multilevel degenerative changes in the lumbar spine. RADIATION DOSE DELIVERED: 663.14mGy.cm Total DLP DATA REPOSITORY: All CT scans at this facility are submitted to the National Radiology Data Registry (NRDR) Dose Index Registry (DIR) with the [employer] (ACR). RADIATION OPTIMIZATION: All CT scans at this facility use at least one of these dose optimization te chniques: automated exposure control; mA and/or kV adjustment per patient size (includes targeted exa ms where dose is matched to clinical indication); or iterative reconstruction.
[2024-12-06 23:00] LABS: PTT Activated 22.4 sec (20.6-30.2); Prothrombin Time 10.5 sec (9.1-11.1)
--- NOTE | 2024-12-06 23:49 | DI.VRAD_ITS ---
PROCEDURE INFORMATION: Exam: CT Abdomen And Pelvis Without Contrast Exam date and time: 12/06/2024 10:37 PM Age: 64 years old Clinical indication: Other: Fall from 3 step ladder onto left side, low back pain TECHNIQUE: Imaging protocol: Computed tomography of the abdomen and pelvis without contrast. COMPARISON: CT LUMBAR SPINE RECONS 12/06/2024 10:37 PM FINDINGS: Liver: Normal. No mass. Gallbladder and biliary ducts: Normal. No calcified stones. No ductal dilation. Pancreas: Unremarkable. Spleen: Normal. Adrenal glands: Normal. No mass. Kidneys and ureters: Chronic medical renal disease. Nonobstructive nephrolithiasis left kidney. Kidneys otherwise unremarkable. Stomach and bowel: No pneumatosis or portal/mesenteric venous gas. Appendix: Normal appendix. Intraperitoneal space: No pneumoperitoneum or abscess. No hemoperitoneum, pneumoperitoneum, mesenteric/omental contusion, or retroperitoneal hematoma. Vasculature: Incidental duplicated IVC. Lymph nodes: Unremarkable. Urinary bladder: Unremarkable as visualized. Reproductive: Unremarkable as visualized. Bones/joints: Unremarkable. No acute fracture. Soft tissues: Unremarkable. Other findings: No traumatic organ injury. IMPRESSION: No acute traumatic injury. Dictated and Authenticated by: Miller Bunch MD. Orderin Daniel Villagomez MD
--- NOTE | 2024-12-06 23:51 | DI.VRAD_ITS ---
PROCEDURE INFORMATION: Exam: CT Lumbar Spine Without Contrast Exam date and time: 12/06/2024 10:37 PM Age: 64 years old Clinical indication: Other: Fall from 3 step ladder onto left side, low back pain TECHNIQUE: Imaging protocol: Computed tomography of the lumbar spine without contrast. COMPARISON: CT ABDOMEN PELVIS WO 12/06/2024 10:37 PM FINDINGS: Bones/joints: No fracture. Multilevel central canal stenosis and neural foraminal narrowing secondary to disc bulges, facet arthropathy, and ligamentum flavum thickening. Soft tissues: Unremarkable. IMPRESSION: 1. No fracture. 2. Multilevel central canal stenosis and neural foraminal narrowing secondary to disc bulges, facet arthropathy, and ligamentum flavum thickening. Dictated and Authenticated by: Miller Bunch MD. Orderin Daniel Villagomez MD
[2024-12-07] MEDS: Lidocaine 5% Patch 1 PATCH TP (00:12)
[2024-12-07] MEDS: oxyCODONE 5 MG TAB PO (00:12)
[2024-12-07 00:24] VITALS: BP 180/78; PULSE 52; RESP 16; TEMP 36.8; O2SAT 96
== END 2024-12-07 00:34 | disposition home or self-care (01) ==
PROVIDERS: Emergency Provider Emergency Medicine Emergency Medical Services; PCP Family Medicine
DX: M54.50 Low back pain, unspecified (principal); M48.061 Spinal stenosis, lumbar region without neurogenic claudication; N18.9 Chronic kidney disease, unspecified; W11.XXXA Fall on and from ladder, initial encounter
CPT/HCPCS: 36415; 80053; 86850; 86900; 86901; 96365; 96375; 99284; 74176; 80320; 85025; 85610; 85730; J0131; J1885

== ENCOUNTER 2025-02-03 12:22 | Outpatient (CLI) | payer MEDICARE, SELFPAY ==
--- NOTE | 2025-02-03 10:35 | DI.RAD_ITS ---
Exam(s) XR KNEE LT 3V AP,LAT,MARVIN EXAM: XR KNEE LT 3V AP,LAT,MARVIN CLINICAL HISTORY: TKR F/U. TECHNIQUE: 2D digital imaging was performed. Three images were obtained. Merchant's, AP and lateral views were obtained. COMPARISON: CR XR STANDING ALIGNMENT from 08/21/2023 CR XR KNEE LT 1V from 08/21/2023 FINDINGS: BONES: There are stable post operative changes of a left total knee arthroplasty present. No fractur e or dislocation. JOINTS: The orthopedic hardware is in good position. No evidence of hardware loosening. There is an enthesophyte at the superior patella. SOFT TISSUE: Normal. IMPRESSION: Stable left total knee arthroplasty. DATA REPOSITORY: RADIATION DOSE DELIVERED:
--- NOTE | 2025-02-03 10:35 | DI.RAD_ITS ---
Exam(s) XR KNEE RT 3V AP,LAT,MARVIN EXAM: XR KNEE RT 3V AP,LAT,MARVIN CLINICAL HISTORY: TKR F/U. TECHNIQUE: 2D digital imaging was performed. Four images were obtained. Merchant's, AP and lateral views were obtained. COMPARISON: CR XR KNEE RT 2V AP,LAT from 04/10/2023 CR XR STANDING ALIGNMENT from 08/21/2023 FINDINGS: BONES: There are stable post operative changes of a right total knee arthroplasty present. No fractu re or dislocation. JOINTS: The orthopedic hardware is in good position. No evidence of hardware loosening. There are w ell-circumscribed calcifications on the lateral view which may lie within the joint space. SOFT TISSUE: Normal. IMPRESSION: Stable right total knee arthroplasty. DATA REPOSITORY: RADIATION DOSE DELIVERED:
== END 2025-02-03 12:23 | disposition home or self-care (01) ==
LOC: DIORS 12:22
PROVIDERS: PCP Family Medicine; Referring Provider Family Medicine; Visit Provider Physician Assistant
DX: T84.82XA Fibrosis due to internal orthopedic prosthetic devices, implants and grafts, initial encounter (principal); Z96.652 Presence of left artificial knee joint; Z96.651 Presence of right artificial knee joint
CPT/HCPCS: 73562; 99214

== ENCOUNTER 2025-02-10 14:37 | Outpatient (REF) | payer MEDICARE, SELFPAY ==
[2025-02-10 14:55] LABS: Anion Gap 6.9 mmol/L (3-11); BUN 14 mg/dL (7-18); CO2 28.1 mmol/L (21.0-32.0); CREATININE 1.5 mg/dL (0.70-1.30); Calcium 9.8 mg/dL (8.5-10.1); Chloride 110 mmol/L (98-107); Estimated GFR 51.67 (mL/min/1.73m2); Glucose 85 mg/dL (74-106); Sodium 145 mmol/L (136-145)
== END 2025-02-10 14:38 | disposition home or self-care (01) ==
LOC: NCHCN 14:37
PROVIDERS: PCP Family Medicine; Visit Provider Family Medicine
DX: N28.9 Disorder of kidney and ureter, unspecified (principal)
CPT/HCPCS: 80048; 84550

== ENCOUNTER 2025-02-12 12:45 | Day surgery (SDC) | payer MEDICARE, SELFPAY ==
[2025-02-12] VITALS (29 sets, daily range): BP systolic 107–148; BP diastolic 57–83; PULSE 45–53; RESP 11–23; TEMP 36.2–36.5; O2SAT 92–98; BMI 34.2
--- NOTE | 2025-02-12 12:42 | PDOC.DSDIS_ITS ---
Date of service: 02/12/25 Discharge Plan Disposition Patient Disposition: Home Condition: Good Discharge Details Reason For Visit: L knee arthroscopy Attending Provider: Brian Del Rio Primary Care Provider: Vaibhav Us Home Meds and New Rx's Prescriptions: New acetaminophen 500 mg tablet 500 mg PO TID Qty: 90 0RF hydrocodone-acetaminophen 5-325 mg tablet 1 tab PO Q6H PRN (Reason: pain) Qty: 6 0RF ibuprofen 600 mg tablet 600 mg PO TID PRN (Reason: pain) Qty: 90 0RF Continued amlodipine 10 mg tablet 5 mg PO HS losartan 100 mg tablet 100 mg PO HS vitamin B complex [B Complex-Vitamin B12] Tablet 1 tab PO DAILY cholecalciferol (vitamin D3) 10 mcg (400 unit) capsule 10 mcg PO DAILY atenolol 100 mg tablet 100 mg PO HS fluticasone propionate 50 mcg/actuation spray,suspension 1 spray intranasal DAILY PRN Rx Instructions: administer into each nostril loratadine [Claritin] 10 mg tablet 10 mg PO HS terazosin 1 mg capsule 1 mg PO QHS docusate sodium [Colace] 100 mg capsule 100 mg PO BID PRN Discontinued naproxen 250 mg tablet 500 mg PO BID PRN acetaminophen 500 mg tablet 1,000 mg PO Q8H PRN Qty: 90 0RF Rx Instructions: Take two tablets up to every 8 hours as needed for pain Discharge Instructions Stand Alone Forms: [facility] Knee Arthroscopy Referrals: Brian Del Rio MD [ [facility] STAFF PHYSICIAN] - Equipment/Supplies: Partial Weight Bearing Crutches Activity:: Activity as Tolerated Remove Dressings/Wound Care:: 72 hours Shower/Bathe:: 72 hours Diet:: As Tolerated Discharge Orders Discharge Orders: Discharge Order (Routine); Ordered 02/12/25 Ordered By: Ramesh Aragon DS: Diagnosis Discharge Diagnosis (1) History of total left knee replacement: (2) Arthrofibrosis of total knee arthroplasty: Status: Acute
[2025-02-12] MEDS: Acetaminophen 500 MG TAB 1000 MG PO (13:38)
[2025-02-12] MEDS: Lactated Ringers 1,000 ML 80 ML IV (13:55)
--- NOTE | 2025-02-12 14:00 | ANES.PREOP_ITS ---
General Info Date of Service Date Performed: 02/12/25 Height: 5 ft 11 in Weight: 111.4 kg Body Mass Index (BMI): 34.2 Surgical Procedure: Operation Date: 02/12/25 14:55 Proposed Procedure Side Surgeon p Knee Arthroscopy w/Manipulation Left Brian Del Rio MD Meds Allergies and Home Medications Allergies Allergy/AdvReac Type Severity Reaction Status Date / Time CLARA Inhibitors AdvReac Unknown Unknown Verified 02/12/25 13:22 Home Medication ?Medication ?Instructions ?Recorded amlodipine 10 mg tablet 5 mg PO HS 11/26/18 losartan 100 mg tablet 100 mg PO HS 11/26/18 atenolol 100 mg tablet 100 mg PO HS 09/24/20 fluticasone propionate 50 1 spray intranasal DAILY PRN 09/24/20 mcg/actuation nasal spray,suspension loratadine 10 mg tablet (Claritin) 10 mg PO HS 07/01/21 terazosin 1 mg capsule 1 mg PO QHS 07/01/21 cholecalciferol (vitamin D3) 10 10 mcg PO DAILY 08/30/22 mcg (400 unit) capsule vitamin B complex (B 1 tab PO DAILY 08/30/22 Complex-Vitamin B12 tablet) docusate sodium 100 mg capsule 100 mg PO BID PRN 12/06/24 (Colace) acetaminophen 500 mg tablet 500 mg PO TID #90 tabs 02/12/25 hydrocodone 5 mg-acetaminophen 325 1 tab PO Q6H PRN pain #6 tabs 02/12/25 mg tablet ibuprofen 600 mg tablet 600 mg PO TID PRN pain #90 tabs 02/12/25 Current Visit Medications: Current Medications Generic Name Dose Route Start Last Admin Trade Name Freq PRN Reason Stop Dose Admin Acetaminophen 1,000 mg 02/12/25 06:00 02/12/25 13:38 Acetaminophen 500 Mg Tab PO 02/12/25 23:59 1,000 mg PREOP SYBIL Administration Acetaminophen 650 mg 02/12/25 12:41 Acetaminophen 325 Mg Tab PO 03/14/25 12:40 Q4H PRN PRN Hydrocodone Bitart/Acetaminophen 0 tab 02/12/25 12:41 Hydrocodone 5/Acetaminophen 325 Tab PO 03/14/25 12:40 Q3H PRN PRN Pain Celecoxib 400 mg 02/12/25 06:00 Celecoxib 200 Mg Cap PO 02/12/25 23:59 PREOP SYBIL Ringer's Solution 1,000 mls @ 80 mls/hr 02/12/25 06:00 02/12/25 13:55 IV 02/12/25 23:59 80 mls/hr INFUSION SYBIL Administration Cefazolin Sodium/Dextrose 2 gm in 50 mls @ 100 mls/hr 02/12/25 06:00 Ancef Duplex IVPB 02/12/25 23:59 PREOP SYBIL Tranexamic Acid/Sodium Chloride 1,000 mg in 100 mls @ 600 mls/hr 02/12/25 06:00 IVPB 02/12/25 23:59 PREOP SYBIL IV Miscellaneous Supplies 1 each 02/12/25 06:00 Iv Access IV 02/12/25 23:59 DIRECTED SYBIL Sodium Chloride 0 ml 02/12/25 06:00 Normal Saline Flush 10 Ml Syr IV 02/12/25 23:59 PRN PRN Sodium Chloride 0 ml 02/12/25 06:00 Normal Saline 10 Ml Vial IJ 02/12/25 23:59 DIRECTED PRN Sterile Water 0 ml 02/12/25 06:00 Water,Injection,Sterile 10 Ml Vial IJ 02/12/25 23:59 DIRECTED PRN PFSH Active Problems Active Problems: Problem Status Onset Code Mild intellectual disability Chronic F70 Obesity Chronic E66.9 Family history of colon cancer Chronic Z80.0 Colorectal polyps Acute K63.5 Screening for colon cancer Acute Z12.11 Arthrofibrosis of total knee arthroplasty Acute T84.82XA Serrated adenoma of colon Acute D12.6 Arthritis of right glenohumeral joint Acute M19.011 Medical History Medical History Reading difficulty per sister states he really cant read well-still is able to sign for self sister is always with him CANDICE (obstructive sleep apnea) CPAP Impingement of left ankle joint Arthritis of left ankle Unilateral primary osteoarthritis, left knee Osteoarthritis of right knee Myalgia Varicose veins of both lower extremities Sensorineural hearing loss of both ears Tinnitus, bilateral Adenomatous colon polyp Renal impairment Memory deficit Tremor Post-nasal drip HTN (hypertension) Degenerative joint disease Hyperlipidemia Medical History Comments:: Per pt. sister during his previous knee surgery he could not stabilize his temperature. Per pt. sister states pt father would hallucinate, and older brother would get sick Surgical History Surgical History History of total left knee replacement (08/08/23) History of total right knee replacement (03/22/22) History of inguinal hernia as ~2 yo History of colonoscopy 2008, 2018 ([facility]) 2021 Tobacco Smoking/Tobacco Use Status: Never Passive smoking exposure: Yes Alcohol Alcohol Intake: never Substance Use Substance use: Never Substance use type: does not use Vital Signs and Lab Results Vital Signs Most Recent Vital Signs in EMR: Most Recent Vital Signs Temp Pulse Resp BP Pulse Ox 36.3 C L 51 L 16 142/78 H 98 02/12/25 13:25 02/12/25 13:25 02/12/25 13:25 02/12/25 13:25 02/12/25 13:25 Lab Results Blood Type / Crossmatch: No Data to Display Complete Blood Count: No Data to Display Complete Metabolic Panel: Sodium 145 mmol/L (136-145) 02/10/25 12:05 Potassium 4.0 mmol/L (3.5-5.1) 02/10/25 12:05 Chloride 110 mmol/L (98-107) H 02/10/25 12:05 Carbon Dioxide 28.1 mmol/L (21.0-32.0) 02/10/25 12:05 BUN 14 mg/dL (7-18) 02/10/25 12:05 Creatinine 1.5 mg/dL (0.70-1.30) H 02/10/25 12:05 Est GFR (CKD-EPI 2020) 51.67 (mL/min/1.73m2) 02/10/25 12:05 Calcium 9.8 mg/dL (8.5-10.1) 02/10/25 12:05 Glucose 85 mg/dL (74-106) 02/10/25 12:05 Liver Function Panel: No Data to Display Coagulation Panel: No Data to Display Cardiac Panel: No Data to Display Arterial Blood Gas: No Data to Display Venous Blood Gas: No Data to Display Pancreas Panel: No Data to Display Thyroid Panel: No Data to Display Infectious Disease: No Data to Display Blood Cultures: No Data to Display Toxicology Panel: No Data to Display Anesthesia Assessment and Plan Anesthesia History Personal History: Other Family History: Other Exercise Tolerance Exercise Tolerance: Metabolic Equivalents>4 Cardiac & Pulmonary Exam Cardiac Exam: Normal S1/S2 Heart Sounds Pulmonary Exam: Clear Bilateral Breath Sounds Implantable Cardiac Device Does patient have a Pacemaker or an ICD?: No Airway Exam Known Difficult Airway: No Mallampati Class: 4 Mouth Opening: Normal (> 3cm) Thyromental Distance: Greater than 3 cm Neck Range of Motion: Full ROM Neck Circumference: Normal Teeth Condition: Normal Dentition ASA Classification ASA Score: ASA 2 Emergency Case?: No NPO Status NPO Status: NPO Clears >2 hours, Solids >8 hours Anesthesia Plan Resuscitation Status: Full Code Anesthesia Technique: General Anesthesia Airway Planned: LMA Monitors Used: Standard Monitors Preoperative Comments:: 64 yo male for knee scope. Sig PMHx: HTN (amlodipine, losartan), CANDICE (cpap), PND, developmental delay/memory issues (sister is reservoir caretaker), never smoker, occ EtOH. Approp NPO Denies GERD Previous Anes: per sister he has issues with being hypothermic after a surgery and was admitted overnight. - TKA, multiple attempt spinal with chloro, prop sedation, no issues. - [place], prop, natural airway, no issues. - knee manipulation, prop/Sybil, sevo, easy mask.
--- NOTE | 2025-02-12 14:41 | HPE_ITS ---
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 Unfortunately he continues have some stiffness which is affecting his daily function. His medical history is stable. He does have chronic kidney disease which is also stable with a creatinine of 1.5. Given the persistence of his stiffness I did offer arthroscopic synovectomy with manipulation. I did review the technical details. I discussed the risk to include bleeding, infection, pain, continued stiffness, need for repeat procedures. Spite these risk, he elects to proceed. We will start physical therapy following this as well. History of Present Illness History of Present Illness Chief Complaint: Left knee arthrofibrosis Narrative: Mamadou is a 64-year-old male who is status post left knee replacement. He is struggled with range of motion. He currently has notable stiffness and arthrofibrosis of the left knee. Please see the previous office note for complete detailed history. He is here today for left knee arthroscopic synovectomy with manipulation. Review of Systems All systems reviewed & are unremarkable except as noted in HPI and below PFSH All Active Problems Mild intellectual disability (Chronic) Obesity (Chronic) Family history of colon cancer (Chronic) Colorectal polyps (Acute) Screening for colon cancer (Acute) Arthrofibrosis of total knee arthroplasty (Acute) BILATERAL Serrated adenoma of colon (Acute) Arthritis of right glenohumeral joint (Acute) Medical History Reading difficulty per sister states he really cant read well-still is able to sign for self sister is always with him CANDICE (obstructive sleep apnea) CPAP Impingement of left ankle joint Arthritis of left ankle Unilateral primary osteoarthritis, left knee Osteoarthritis of right knee Myalgia Varicose veins of both lower extremities Sensorineural hearing loss of both ears Tinnitus, bilateral Adenomatous colon polyp Renal impairment Memory deficit Tremor Post-nasal drip HTN (hypertension) Degenerative joint disease Hyperlipidemia Surgical History History of total left knee replacement (08/08/23) History of total right knee replacement (05/17/22) History of inguinal hernia as ~2 yo History of colonoscopy 2018 ([facility]) 2021 Family History Other Diabetes Heart disease Hyperlipidemia Hypertension Social History Smoking/Tobacco Use Status: Never Smoking risk assessment performed?: Yes Alcohol Intake: never Drug use: Never Substance use type: does not use Housing: house Current gender identity: male Additional Social history: UTAP Meds Allergies and Home Medications Allergies Allergy/AdvReac Type Severity Reaction Status Date / Time CLARA Inhibitors AdvReac Unknown Unknown Verified 02/12/25 13:22 Home Medications ?Medication ?Instructions ?Recorded ?Confirmed ?Type amlodipine 10 mg tablet 5 mg PO HS 11/26/18 02/12/25 History losartan 100 mg tablet 100 mg PO HS 11/26/18 02/12/25 History atenolol 100 mg tablet 100 mg PO HS 09/24/20 02/12/25 History fluticasone propionate 50 1 spray intranasal DAILY PRN 09/24/20 02/11/25 History mcg/actuation nasal spray,suspension loratadine 10 mg tablet (Claritin) 10 mg PO HS 07/01/21 02/12/25 History terazosin 1 mg capsule 1 mg PO QHS 07/01/21 02/12/25 History cholecalciferol (vitamin D3) 10 10 mcg PO DAILY 08/30/22 02/11/25 History mcg (400 unit) capsule vitamin B complex (B 1 tab PO DAILY 08/30/22 02/11/25 History Complex-Vitamin B12 tablet) docusate sodium 100 mg capsule 100 mg PO BID PRN 12/06/24 02/11/25 History (Colace) acetaminophen 500 mg tablet 500 mg PO TID #90 tabs 02/12/25 Rx hydrocodone 5 mg-acetaminophen 325 1 tab PO Q6H PRN pain #6 tabs 02/12/25 Rx mg tablet ibuprofen 600 mg tablet 600 mg PO TID PRN pain #90 tabs 02/12/25 Rx Exam Const General: cooperative, comfortable and no acute distress Resp Effort & Inspection: normal respiratory effort Auscultation: clear to auscultation bilaterally Cardio Rate: regular rate Rhythm: regular rhythm Results Last Vital Signs Temp 36.3 C L 02/12/25 13:25 Pulse 51 L 02/12/25 13:25 Resp 16 02/12/25 13:25 BP 142/78 H 02/12/25 13:25 Pulse Ox 98 02/12/25 13:25
[2025-02-12] MEDS: ceFAZolin 2 GM/50 ML BAG IVPB (16:07)
[2025-02-12] MEDS: TRANEXAMIC ACID/SOD. CHL. 1,000 MG/100 ML BAG 600 MG IVPB (16:15)
[2025-02-12] MEDS: Bupivacaine 0.25% Pres-Free 30 ML VIAL (16:30)
[2025-02-12] MEDS: EPINEPHrine 10 MG/10 ML ML (16:31)
[2025-02-12] MEDS: fentaNYL 100 MCG/2 ML VIAL IVP ×3 (17:04→17:26)
[2025-02-12] MEDS: HYDROcodone 5/Acetaminophen 325 TAB PO (17:46)
--- NOTE | 2025-02-12 17:46 | W.ANESPOSTOP ---
Postoperative Evaluation Date, Time and Location Date Performed: 02/12/25 Time Performed: 17:44 Patient Location: Day Surgery Unit Vital Signs Most Recent Imported Vital Signs: Most Recent Vital Signs Temp Pulse Resp BP Pulse Ox 36.5 C 48 L 20 140/70 96 02/12/25 17:31 02/12/25 17:31 02/12/25 17:31 02/12/25 17:31 02/12/25 17:31 Pain Score Most Recent Pain Score: Most Recent Pain Score Pain Level 5 02/12/25 17:30 Assessment Mental Status: Awake (Alert & Oriented to Patient Baseline) Airway and Respiratory Function: Patent airway with normal (patient baseline) respiratory exam Cardiovascular Function: Hemodynamically Stable Hydration Status: Adequately Hydrated Nausea & Vomiting: No Nausea or Vomiting Pain: Pain is tolerable per patient Peripheral Nerve Block: Patient did not receive a nerve block
--- NOTE | 2025-02-12 18:16 | W.PM.OP ---
Operative Note Operative Note PRE-OP DIAGNOSIS: Arthrofibrosis of Knee Replacement - Left POST-OP DIAGNOSIS: same PROCEDURE: Arthroscopic Synovectomy of 3 Compartments with Manipulation - Left Knee SURGEON: Brian Del Rio ANESTHESIA TYPE: General LMA/ETT Refer to Anesthesia Record ESTIMATED BLOOD LOSS: 0 PATHOLOGY: none sent COMPLICATIONS: None Patient was transported to: PACU Patient's condition: stable Indications: I have seen Mamadou in clinic for symptoms of arthrofibrosis of the knee following knee replacement surgery. Nonoperative measures were exhausted but disability due to lack of motion persisted. I discussed knee arthroscopy with synovectomy with maniuplation with the patient. I reviewed the risks of the procedure to include, but not limited to, bleeding, infection, pain, continued stiffness, recurrence, blood clot. Despite these risks, the patient elected to proceed. Findings: Preoperative Range of Motion: Flexion: 65 Extension:10 Postoperative Range of Motion: Flexion:110 Extension:5 Procedure Description: Mamadou was greeted in the preoperative holding area where the correct side was identified and marked. The consent was reviewed with the patient and signed. The history and physical was updated. All questions were answered. He was taken back to the operating room. The patient was placed into the supine position on the operating room table. All bony prominences were well padded. Prophylactic antibiotics in the form of Cefazolin were administered. Preoperative range of motion was assessed as 10 - 65. The left leg was then prepped with Chloraprep and draped in a standard fashion with stockinette and extremity drape. A timeout to confirm correct identity, side and site, procedure, allergies, anesthesia, and medical concerns was performed. The leg was placed into a pneumatic leg vann, [id number]. A standard lateral portal was made at the lateral border of the patella tendon in line with the inferior pole of the patella, soft spot. The skin and deep tissue was incised sharply and the blunt trochar was inserted atraumatically. At this point had visualization of the femoral component. A superomedial portal was then established with spinal needle localization just superior and medial to the patella in order to obtain circumferential coverage of the knee. A knife was taken down through the skin and soft tissue to enter the knee joint. Starting in the superior compartment above the femoral component and anterior to the femur I released all scarring between the anterior femoral synovium and the overlying extensor mechanism. There is a dense veil of scar tissue in this region starting at the edge of the implant. This resection was taken through all of the scar tissue until the superior patellar pouch was fully released and mobile. This resection was carried out mostly with electrocautery as well as shaver. Once this was released fully from lateral to medial superiorly I then continue working down the medial aspect of the knee. All scar tissue in the medial gutter was released so there is normal space and movement between the capsular tissues and the edge of the femoral component and femur. Capsular tissue was also resected to free up the medial side the knee which was quite tight. This was then continued anteriorly where soft tissue seen adjacent to the patellar ligament space was resected. Electrocautery was utilized to release bands of tissue adjacent to the patella and the anteromedial aspect. Attention was then turned to the lateral side of the knee which also had resection of the scar tissue with electrocautery and the shaver down to the anterolateral portion of the knee. The lateral gutter was much more free than the medial side. Any remnant scar tissue from around the patella was then removed with a shaver and electrocautery. The arthroscope was brought back into the suprapatellar pouch and the leg was in full extension. The knee was thoroughly irrigated with the arthroscopic fluid on high flow and pressure. Inflow was stopped and excess fluid was removed. The leg was removed from the spider leg vann and manipulation was performed. I first push the knee into flexion and was able to obtain 110 degrees. I then worked the knee into extension, slowly applying an anterior to posterior directed pressure with support of the knee and no significant lever arm. This was cycled multiple times until I was able to obtain extension of 5 degrees. The wounds were closed with 4-0 Nylon. 0.25% ropivacaine was injected around the portal sites and into the knee. The wounds were dressed with Xeroform, 4x4 gauze, ABD pad, Kerlix and an CLARA wrap. A cryo-cuff was applied. The patient tolerated the procedure well and was returned to the Same Day Surgery area in a stable condition suffering no known complication.. Date of Procedure: 02/12/25
== END 2025-02-12 18:55 | disposition home or self-care (01) ==
LOC: SUR 12:46
PROVIDERS: PCP Family Medicine; Visit Provider Student in an Organized Health Care Education/Training Program
PROC: (CPT 29870; principal; 2025-02-12 14:45)
DX: T84.82XA Fibrosis due to internal orthopedic prosthetic devices, implants and grafts, initial encounter (principal); Z96.652 Presence of left artificial knee joint
CPT/HCPCS: 29876; J0330; J0665; J0690; J1100; J2003; J2405; J2704; J3010

== ENCOUNTER → 2025-02-24 10:51 | Outpatient (BNVA) | payer MEDICARE, SELFPAY | PROVIDERS: PCP Family Medicine; Referring Provider Family Medicine | DX: Z47.1 Aftercare following joint replacement surgery (principal); T84.82XA Fibrosis due to internal orthopedic prosthetic devices, implants and grafts, initial encounter; Z96.652 Presence of left artificial knee joint | CPT/HCPCS: 99024 ==

== ENCOUNTER → 2025-03-24 11:26 | Outpatient (BNVA) | payer MEDICARE, SELFPAY | PROVIDERS: PCP Family Medicine; Referring Provider Family Medicine; Visit Provider Student in an Organized Health Care Education/Training Program | DX: T84.82XD Fibrosis due to internal orthopedic prosthetic devices, implants and grafts, subsequent encounter (principal) | CPT/HCPCS: 99024 ==

== ENCOUNTER 2025-08-04 17:41 | Outpatient (REF) | payer MEDICARE, SELFPAY ==
[2025-08-04 17:47] LABS: ALT 29 U/L (16-63); AST 23 U/L (15-37); Albumin 4.4 g/dL (3.4-5.0); Alkaline Phosphatase 87 U/L (46-116); Anion Gap 9.2 mmol/L (3-11); BUN 14 mg/dL (7-18); Bilirubin, Total 1.3 mg/dL (0.2-1.0); CO2 26.8 mmol/L (21.0-32.0); Calcium 10.3 mg/dL (8.5-10.1); Chloride 107 mmol/L (98-107); Estimated GFR 56.13 (mL/min/1.73m2); Glucose 86 mg/dL (74-106); Potassium 3.9 mmol/L (3.5-5.1); Sodium 143 mmol/L (136-145); Total Protein 7.2 g/dL (6.4-8.2)
[2025-08-04 18:49] LABS: Hemoglobin A1C 5.0 % (<5.7)
== END 2025-08-04 17:42 | disposition home or self-care (01) ==
LOC: NCHCN 17:41
PROVIDERS: PCP Family Medicine; Visit Provider Family Medicine
DX: Z00.00 Encounter for general adult medical examination without abnormal findings (principal)
CPT/HCPCS: 80053; 83036